=== PATIENT | female | born 1955 ===

== ENCOUNTER 2017-12-03 22:52 | Inpatient (IN) | payer MEDICAID, MEDICARE ==
[2017-12-03 22:52] VITALS: BMI 27.9
[2017-12-03] MEDS ORDERED: Iohexol 240 (50 ml) PO STA (23:30)
[2017-12-03] MEDS ORDERED: Sodium Chloride 0.9% 1,000 ML IV STA (23:33)
[2017-12-03 23:57] LABS: BASO # 0.1 K/uL (0.0-0.2); BASO % 0.7 % (0.0-2.0); EOS % 0.3 % (0.0-4.0); HEMOGLOBIN 11.3 g/dL (12.0-16.0); LYMPH # 1.6 K/uL (1.0-4.3); LYMPH % 10.4 % (20.0-40.0); MEAN CELL VOLUME 80.8 fl (81.0-99.0); MEAN CORPUSCULAR HEMOGLOBIN 25.6 pg (27.0-31.0); MEAN CORPUSCULAR HGB CONC 31.7 g/dL (33.0-37.0); MEAN PLATELET VOLUME 8.5 fl (7.2-11.7); MONO # 1.1 K/uL (0.0-0.8); MONO % 7.6 % (0.0-10.0); NEUT # 12.2 K/uL (1.8-7.0); NRBC % 0.1 % (0.0-0.0); RBC 4.42 Mil/uL (3.80-5.20); RED CELL DISTRIBUTION WIDTH 15.6 % (11.5-14.5); WHITE BLOOD COUNT 15.1 K/uL (4.8-10.8)
[2017-12-04 00:07] LABS: INR 1.2 (0.9-1.2); PARTIAL THROMBOPLASTIN TIME 26.6 Seconds (25.6-37.1); PROTHROMBIN TIME 13.5 Seconds (9.8-13.1)
[2017-12-04 00:09] LABS: ALB/GLOB RATIO 1.1 (1.0-2.1); ALBUMIN 3.8 g/dL (3.5-5.0); ALT/SGPT 31 U/L (9-52); AST/SGOT 17 U/L (14-36); BLOOD UREA NITROGEN 17 mg/dl (7-17); CALCIUM 9.5 mg/dL (8.4-10.2); GFR AFRICAN-AMERICAN > 60; GFR NON-AFRICAN AMERICAN > 60; LIPASE 52 U/L (23-300); MAGNESIUM 1.7 MG/DL (1.6-2.3)
[2017-12-04 00:09] LABS: VENOUS BLOOD GAS BASE EXCESS 3.9 mmol/L (0.0-2.0); VENOUS BLOOD GAS PCO2 42 mmHg (40-60); VENOUS BLOOD GAS PO2 26 mm/Hg (30-55); VENOUS BLOOD PH 7.44 (7.32-7.43)
--- NOTE | 2017-12-04 00:44 | ED PDOC ---
HPI: Abdomen Time Seen by Provider: 12/03/17 23:13 Chief Complaint (Nursing): Abdominal Pain Chief Complaint (Provider): Abdominal Pain History Per: Patient History/Exam Limitations: no limitations Onset/Duration Of Symptoms: Other (3.5 weeks) Additional Complaint(s): 61 y/o female presents to the ED complaining of lower abdominal pain, that started about 3.5 weeks ago when she was in [facility] [place]. Patient reports that initially she had diarrhea which was bloody, as well has hematuria, frequency and abnormal vaginal bleeding. Patient states that bleeding resolved but abdominal pain continued. She also notes that she has decreased appetite, subjective fever, chills, body aches, malaise and fatigue. She reports seeing her PMD who prescribed her the regular medicines she takes. Denies dysuria or any further medical complaints. PMD: Soto Young MD Past Medical History Vital Signs: Last Vital Signs Temp 98.2 F 12/12/17 08:30 Pulse 72 12/12/17 08:30 Resp 20 12/12/17 08:30 BP 141/82 12/12/17 08:30 Pulse Ox 98 12/13/17 14:10 - Medical History PMH: Depression, Diabetes, Gastritis, Hypercholesterolemia, Osteoporosis Denies: Chronic Kidney Disease - Surgical History Surgical History: Endoscopy, Other surgeries: Umbilical Hernia - Family History Family History: States: Diabetes - Social History Current smoker - smoking cessation education provided: No Alcohol: None Drugs: Denies - Home Medications Home Medications: Ambulatory Orders Medication Instructions Recorded Alprazolam [Xanax] 1 tab PO DAILY 12/04/17 Cholecalciferol [Vitamin D 1000 IU] 50,000 iu PO DAILY 12/04/17 Dulaglutide [Trulicity] 1.5 mg SQ QWK 12/04/17 Omeprazole 1 tab PO DAILY 12/04/17 Rosuvastatin Calcium [Crestor] 20 mg PO HS 12/04/17 Sucralfate [Carafate Tab] 1 tab PO DAILY 12/04/17 Vortioxetine Hydrobromide 1 tab PO DAILY 12/04/17 [Trintellix] metFORMIN [glucOPHAGE] 2 tab PO BID 12/04/17 Cefpodoxime [Vantin] 200 mg PO BID #10 tab 12/12/17 Docusate [Colace] 100 mg PO BID cap 12/12/17 Ferrous Sulfate [Feosol] 325 mg PO BID tab 12/12/17 Simethicone [Mylicon Chew Tab] 80 mg PO TID #30 chew 12/12/17 - Allergies Allergies/Adverse Reactions: Allergies Allergy/AdvReac Type Severity Reaction Status Date / Time Penicillins Allergy RASH Verified 12/03/17 23:03 Review of Systems ROS Statement: Except As Marked, All Systems Reviewed And Found Negative (As per HPI, otherwise negative) Constitutional: Positive for: Fever, Chills, Malaise (and fatigue), Other (Body aches) Gastrointestinal: Positive for: Abdominal Pain (Lower abdominal pain), Diarrhea (Bloody), Other (Decreased appetite) Genitourinary Female: Positive for: Frequency, Hematuria, Vaginal Bleeding. Negative for: Dysuria Physical Exam - Reviewed Nursing Documentation Reviewed: Yes Vital Signs Reviewed: Yes - Physical Exam Appears: Positive for: Uncomfortable, In Acute Distress Head Exam: Positive for: ATRAUMATIC, NORMOCEPHALIC Skin: Positive for: Warm, Dry Eye Exam: Positive for: EOMI, PERRL ENT: Positive for: Pharynx Is (clear), Other (mucus membranes moist) Neck: Positive for: Painless ROM, Supple Cardiovascular/Chest: Positive for: Regular Rate, Rhythm, Chest Non Tender. Negative for: Murmur Respiratory: Positive for: Normal Breath Sounds. Negative for: Respiratory Distress Gastrointestinal/Abdominal: Positive for: Bowel Sounds, Soft, Tenderness (LLQ and suprapubic). Negative for: Mass, Distended, Guarding, Rebound Back: Positive for: Normal Inspection. Negative for: L CVA Tenderness, R CVA Tenderness Extremity: Positive for: Normal ROM. Negative for: Deformity Lymphatic: Negative for: Adenopathy Neurologic/Psych: Positive for: Alert. Negative for: Motor/Sensory Deficits - Laboratory Results Result Diagrams: 12/11/17 09:05 12/12/17 05:40 - ECG O2 Sat by Pulse Oximetry: 98 (RA) Pulse Ox Interpretation: Normal Medical Decision Making Medical Decision Making: Time: 23:31 Initial Impression: Abdominal Pain Differential diagnosis: cholecystitis, diverticulitis, cystitis, UTI, dehydration Plan: Type and screen CT abdomen/Pelvis Urine dipstick Acetaminophen 975mg PO Iohexol 50ml PO Sodium chloride 1L IV Blood culture Urine culture IV insertion Glucose, Blood, POC Urinalysis Reevaluation Time: 02:16 Abdomen/Pelvis CT FINDINGS: Limitations: Motion artifact - mild. Lower thorax: Mild cardiomegaly. Minimal atelectasis. 0.3 cm RIGHT middle lobe nodule. Small hiatal hernia. ABDOMEN: Liver: Unremarkable. No mass. Gallbladder and bile ducts: No calcified stones. No ductal dilation. Pancreas: No ductal dilation. No mass. Spleen: No splenomegaly. Adrenals: No mass. Kidneys and ureters: Multiple probable LEFT renal cysts. Multiple too small to characterize lesions within LEFT kidney. Mild pelvocaliectasis of both kidneys. Stomach and bowel: Few scattered diverticula within colon. Mild mural thickening short segment of proximal sigmoid colon. Minimal stranding within adjacent fat. No obstruction. Appendix: Normal caliber. No inflammation. PELVIS: Bladder: Unremarkable. Reproductive: 5.6 x 4.4 x 4.7 cm multiloculated lesion within left adnexal region contiguous with thickened proximal sigmoid colon. ABDOMEN and PELVIS: Intraperitoneal space: No significant fluid collection. No free air. Bones/joints: Early degenerative changes of spine. No acute fracture. Soft tissues: Probable multiple noncalcified injection granulomas within gluteal soft tissues. Postsurgical changes of anterior abdominal wall. Vasculature: Minimal atherosclerotic disease. No aneurysm. Lymph nodes: No pathologically enlarged lymph nodes. IMPRESSION: 1. Multiloculated lesion within left adnexal region contiguous with mildly thickened proximal sigmoid colon. DDX: Diverticulitis with diverticular abscess, tuboovarian abscess with secondary colitis, ovarian neoplasm with local invasion. Clinical correlation and follow up are recommended. 2. Pulmonary nodules. For low-risk patients, no follow-up is necessary. For high-risk patients (smoking history or other known risk factors) an optional CT at 12 months could be performed. 3. Incidental/non-acute findings are described above. DW pt findings and need for US for further evaluation. Also pt with findings c/ w sepsis (but not severe/shock) requiring antibiotics. Will need hospitalization. Pt in agreement. EXAM: US Pelvis, Transvaginal CLINICAL HISTORY: 61 years old, female; Pain; Pelvic pain; Additional info: Left adnexal abnormality R/O toa TECHNIQUE: Real-time transvaginal pelvic ultrasound (complete) with image documentation. Transvaginal imaging was used for better evaluation of the endometrium and adnexa. COMPARISON: CT - ABD PELVIS PO IV CONTRAST 2017-12-04 01:14 FINDINGS: Uterus/cervix: Uterus measures 5.4 x 2.7 x 4.2 cm in size. No myometrial mass. Nabothian cysts. Endometrium: 0.4 cm in thickness. Right ovary: Not visualized. Left ovary: 5.6 x 4.8 x 5.8 cm in size. Multiple hypoechoic lesions with internal echoes, largest up to 2.7 cm. Normal flow. Free fluid: Small free fluid within pelvis. Bladder: Empty bladder which cannot be evaluated with this probe. IMPRESSION: 1. Enlarged, complex appearing LEFT ovary, indeterminate. Neoplasm or infection not excluded. Recommend MRI. 2. Incidental/non-acute findings are described above. Thank you for allowing us to participate in the care of your patient. Dictated and Authenticated by: Norris aSmaniego MD 12/04/2017 4:12 AM Eastern Time ([place] & [place]) DW pt findings. DW Dr Young PMD. Will need surgical and shaker flatwork consults inpatient. Scribe Attestation: Documented by Cate Hrenandez acting as a scribe for Liliane Yanes MD. Scribe Attestation: All medical record entries made by the Scribe were at my direction and personally dictated by me. I have reviewed the chart and agree that the record accurately reflects my personal performance of the history, physical exam, medical decision making, and the department course for this patient. I have also personally directed, reviewed, and agree with the discharge instructions and disposition. Disposition - Clinical Impression Clinical Impression: Adnexal mass, Sepsis Counseled Patient/Family Regarding: Studies Performed, Diagnosis - Disposition Disposition Time: 02:30 Condition: FAIR - Pt Status Changed To: Hospital Disposition Of: Inpatient - Admit Certification Admit to Inpatient:: After my assessment, the patient will require hospitalization for at least two midnights. This is because of the severity of symptoms shown, intensity of services needed, and/or the medical risk in this patient being treated as an outpatient. - POA Present On Arrival: None
[2017-12-04] MEDS ORDERED: Sodium Chloride 0.9% 50 ML IV ONE (01:10)
[2017-12-04 01:11] LABS: SQUAMOUS EPITHIAL 1 /hpf (0-5); URINE BACTERIA RARE (<OCC); URINE BILIRUBIN NEGATIVE (NEGATIVE); URINE BLOOD MODERATE (NEGATIVE); URINE CLARITY SLIGHTY-CLOUDY (Clear); URINE COLOR YELLOW (YELLOW); URINE GLUCOSE (UA) NEG (Normal); URINE LEUKOCYTE ESTERASE SMALL Leu/uL (Negative); URINE NITRATE NEGATIVE (NEGATIVE); URINE PROTEIN NEGATIVE (NEGATIVE); URINE UROBILINOGEN 0.2-1.0 mg/dL (0.2-1.0)
[2017-12-04] MEDS ORDERED: Iohexol 300 100 ML IJ ONE (01:11)
--- NOTE | 2017-12-04 02:16 | CT ---
EXAM: CT Abdomen and Pelvis With Intravenous Contrast CLINICAL HISTORY: 61 years old, female; Pain; Abdominal pain; Periumbilical; Prior surgery; Surgery date: 6+ months; Surgery type: Abdominal plasty. Hernia repair umbilicus TECHNIQUE: Axial computed tomography images of the abdomen and pelvis with intravenous contrast. All CT scans at this facility use one or more dose reduction techniques, viz.: automated exposure control; ma/kV adjustment per patient size (including targeted exams where dose is matched to indication; i.e. head); or iterative reconstruction technique. Coronal and sagittal reformatted images were created and reviewed. CONTRAST: 90 mL of [id number] administered intravenously. COMPARISON: US - ABDOMEN LIMITED 2015-09-23 00:14 FINDINGS: Limitations: Motion artifact - mild. Lower thorax: Mild cardiomegaly. Minimal atelectasis. 0.3 cm RIGHT middle lobe nodule. Small hiatal hernia. ABDOMEN: Liver: Unremarkable. No mass. Gallbladder and bile ducts: No calcified stones. No ductal dilation. Pancreas: No ductal dilation. No mass. Spleen: No splenomegaly. Adrenals: No mass. Kidneys and ureters: Multiple probable LEFT renal cysts. Multiple too small to characterize lesions within LEFT kidney. Mild pelvocaliectasis of both kidneys. Stomach and bowel: Few scattered diverticula within colon. Mild mural thickening short segment of proximal sigmoid colon. Minimal stranding within adjacent fat. No obstruction. Appendix: Normal caliber. No inflammation. PELVIS: Bladder: Unremarkable. Reproductive: 5.6 x 4.4 x 4.7 cm multiloculated lesion within left adnexal region contiguous with thickened proximal sigmoid colon. ABDOMEN and PELVIS: Intraperitoneal space: No significant fluid collection. No free air. Bones/joints: Early degenerative changes of spine. No acute fracture. Soft tissues: Probable multiple noncalcified injection granulomas within gluteal soft tissues. Postsurgical changes of anterior abdominal wall. Vasculature: Minimal atherosclerotic disease. No aneurysm. Lymph nodes: No pathologically enlarged lymph nodes. IMPRESSION: 1. Multiloculated lesion within left adnexal region contiguous with mildly thickened proximal sigmoid colon. DDX: Diverticulitis with diverticular abscess, tuboovarian abscess with secondary colitis, ovarian neoplasm with local invasion. Clinical correlation and follow up are recommended. 2. Pulmonary nodules. For low-risk patients, no follow-up is necessary. For high-risk patients (smoking history or other known risk factors) an optional CT at 12 months could be performed. 3. Incidental/non-acute findings are described above.
[2017-12-04] MEDS ORDERED: Ciprofloxacin 400mg/200ml D5W 400 MG/200 ML BAG IV STA (02:59)
[2017-12-04] MEDS ORDERED: metroNIDAZOLE 500mg/100ml NS 100 ML IV STA (03:00)
[2017-12-04] MEDS ORDERED: metroNIDAZOLE 500mg/100ml NS 100 ML IVPB ONE (03:26)
[2017-12-04] MEDS ORDERED: Ciprofloxacin 400mg/200ml D5W 400 MG/200 ML BAG IVPB ONE (03:26)
[2017-12-04] MEDS ORDERED: HYDROmorphone 0.5 mg/0.5 ml ISec IVP STA (04:11)
[2017-12-04] MEDS ORDERED: HYDROmorphone 0.5 mg/0.5 ml ISec ONE (04:12)
--- NOTE | 2017-12-04 04:13 | US ---
EXAM: US Pelvis, Transvaginal CLINICAL HISTORY: 61 years old, female; Pain; Pelvic pain; Additional info: Left adnexal abnormality R/O toa TECHNIQUE: Real-time transvaginal pelvic ultrasound (complete) with image documentation. Transvaginal imaging was used for better evaluation of the endometrium and adnexa. COMPARISON: CT - ABD PELVIS PO IV CONTRAST 2017-12-04 01:14 FINDINGS: Uterus/cervix: Uterus measures 5.4 x 2.7 x 4.2 cm in size. No myometrial mass. Nabothian cysts. Endometrium: 0.4 cm in thickness. Right ovary: Not visualized. Left ovary: 5.6 x 4.8 x 5.8 cm in size. Multiple hypoechoic lesions with internal echoes, largest up to 2.7 cm. Normal flow. Free fluid: Small free fluid within pelvis. Bladder: Empty bladder which cannot be evaluated with this probe. IMPRESSION: 1. Enlarged, complex appearing LEFT ovary, indeterminate. Neoplasm or infection not excluded. Recommend MRI. 2. Incidental/non-acute findings are described above.
--- NOTE | 2017-12-04 07:39 | CP.PCM.CON ---
<Annabelle Auguste - Last Filed: 12/04/17 10:29> History of Present Illness - History of Present Illness History of Present Illness: General surgery consult for Dr. Naseem Auguste, PGY-1 Pt S & E at bedside. 61F w/PMH sig for Gastritis, HLD, DM, hx hiatal hernia consulted for possible diverticulitis and abdominal pain. Pt reports ab pain x 4 mos, worsened over past 2-3 weeks, diffuse, constant, non radiating, severe. Admits to constant diarrhea, nausea, pain with sexual intercourse (every time), fevers, abnormal vaginal bleeding, bleeding per rectum, poor appetite, dizziness, recent Abx pain. Denies emesis. Pt saw outpt obgyn approximately 1 mo ago- given medroxyprogesterone and abx. CT ab w/Multiloculated lesion within left adnexal region contiguous with mildly thickened proximal sigmoid colon. DDX: Diverticulitis with diverticular abscess , tuboovarian abscess with secondary colitis, ovarian neoplasm with local invasion. Clinical correlation and follow up are recommended. Leukocytosis 15.1. PMH: Gastritis, HLD, DM, hx hiatal hernia PSH: Hiatal hernia repair, All: PCN (Dizzy) SH: Pain w/sexual intercourse- unprotected, denies ETOH, tobacco, illicit drug use Outpt professor of communication: Lara (sp?) Review of Systems - Review of Systems All systems: reviewed and no additional remarkable complaints except - Constitutional Constitutional: Fever. absent: Increased Appetite - EENT Ears: Dizziness - Cardiovascular Cardiovascular: absent: Chest Pain - Gastrointestinal Gastrointestinal: Abdominal Pain, Change in Stool Character, Diarrhea, Nausea. absent: Constipation, Vomiting - Reproductive: Female Reproductive:Female: Abnormal Vaginal Bleeding, Dyspareunia - Integumentary Integumentary: absent: Rash - Neurological Neurological: Dizziness - Psychiatric Psychiatric: Change in Appetite (decreased) Past Patient History - Past Medical History & Family History Past Medical History?: Yes - Past Social History Alcohol: None Drugs: Denies - CARDIAC Hx Hypercholesterolemia: Yes - PULMONARY Hx Respiratory Disorders: No - NEUROLOGICAL Hx Neurological Disorder: No - HEENT Hx HEENT Problems: No - RENAL Hx Chronic Kidney Disease: No - ENDOCRINE/METABOLIC Hx Endocrine Disorders: Yes Hx Diabetes Mellitus Type 2: Yes - HEMATOLOGICAL/ONCOLOGICAL Hx Blood Disorders: No - INTEGUMENTARY Hx Dermatological Problems: No - MUSCULOSKELETAL/RHEUMATOLOGICAL Hx Osteoporosis: Yes - GASTROINTESTINAL Hx Gastritis: Yes - GENITOURINARY/GYNECOLOGICAL Hx Genitourinary Disorders: No - PSYCHIATRIC Hx Depression: Yes - SURGICAL HISTORY Hx Surgeries: Yes (HIATAL HERNIA SX) - ANESTHESIA Hx Anesthesia: Yes Hx Anesthesia Reactions: No Hx Malignant Hyperthermia: No Meds Allergies/Adverse Reactions: Allergies Allergy/AdvReac Type Severity Reaction Status Date / Time Penicillins Allergy RASH Verified 12/03/17 23:03 - Medications Medications: Current Medications Hydromorphone HCl (Dilaudid) 1 mg IVP Q4 PRN PRN Reason: Pain, moderate (4-7) Dextrose/Lactated Ringer's (Dextrose 5%/Lactated Ringer's) 1,000 mls @ 100 mls/ hr IV .Q10H JETHRO Stop: 12/05/17 06:28 Ondansetron HCl (Zofran Inj) 4 mg IVP Q4 PRN PRN Reason: Nausea/Vomiting Pantoprazole Sodium (Protonix Inj) 40 mg IVP DAILY JETHRO Physical Exam - Constitutional Appears: Non-toxic, No Acute Distress - Head Exam Head Exam: ATRAUMATIC, NORMAL INSPECTION, NORMOCEPHALIC - Eye Exam Eye Exam: EOMI, Normal appearance - ENT Exam ENT Exam: Mucous Membranes Moist, Normal Exam - Neck Exam Neck exam: Positive for: Full Rom, Normal Inspection - Respiratory Exam Respiratory Exam: NORMAL BREATHING PATTERN - Cardiovascular Exam Cardiovascular Exam: REGULAR RHYTHM, +S1, +S2 - GI/Abdominal Exam GI & Abdominal Exam: Soft, Tenderness (diffuse). absent: Distended, Firm, Guarding, Hernia, Rebound, Rigid - Extremities Exam Extremities exam: Positive for: normal inspection - Neurological Exam Neurological exam: Alert, CN II-XII Intact, Oriented x3 - Psychiatric Exam Psychiatric exam: Normal Affect, Normal Mood - Skin Skin Exam: Dry, Intact, Normal Color, Warm Results - Vital Signs Recent Vital Signs: Last Vital Signs Temp 98.6 F 12/04/17 05:02 Pulse 80 12/04/17 05:02 Resp 19 12/04/17 05:02 BP 122/81 12/04/17 05:02 Pulse Ox 98 12/04/17 07:21 - Labs Result Diagrams: 12/03/17 23:54 12/03/17 23:54 Labs: Laboratory Results - last 24 hr 12/03/17 12/03/17 12/03/17 00:00 23:31 23:54 WBC 15.1 H D RBC 4.42 Hgb 11.3 L Hct 35.7 MCV 80.8 L D MCH 25.6 L MCHC 31.7 L RDW 15.6 H Plt Count 255 MPV 8.5 Neut % (Auto) 81.0 H Lymph % (Auto) 10.4 L [place] % (Auto) 7.6 Eos % (Auto) 0.3 Baso % (Auto) 0.7 Neut # 12.2 H Lymph # 1.6 [place] # 1.1 H Eos # 0.0 Baso # 0.1 PT INR APTT pO2 26 L VBG pH 7.44 H VBG pCO2 42 VBG HCO3 26.7 VBG Total CO2 29.8 H VBG O2 Sat (Calc) 52.0 VBG Base Excess 3.9 H VBG Potassium 3.6 Sodium 138.0 Chloride 100.0 Glucose 148 H Lactate 1.3 FiO2 21.0 Potassium Carbon Dioxide Anion Gap BUN Creatinine Est GFR ( Amer) Est GFR (Non-Af Amer) Random Glucose Calcium Phosphorus Magnesium Total Bilirubin AST ALT Alkaline Phosphatase Total Protein Albumin Globulin Albumin/Globulin Ratio Lipase Venous Blood Potassium 3.6 Urine Color Urine Clarity Urine pH Ur Specific [place] Urine Protein Urine Glucose (UA) Urine Ketones Urine Blood Urine Nitrate Urine Bilirubin Urine Urobilinogen Ur Leukocyte Esterase Urine RBC (Auto) Urine Microscopic WBC Ur Squamous Epith Cells Urine Bacteria Blood Type O POSITIVE Antibody Screen Negative BBK History Checked No verified bt 12/03/17 12/03/17 12/04/17 23:54 23:54 01:01 WBC RBC Hgb Hct MCV MCH MCHC RDW Plt Count MPV Neut % (Auto) Lymph % (Auto) [place] % (Auto) Eos % (Auto) Baso % (Auto) Neut # Lymph # [place] # Eos # Baso # PT 13.5 H INR 1.2 APTT 26.6 pO2 VBG pH VBG pCO2 VBG HCO3 VBG Total CO2 VBG O2 Sat (Calc) VBG Base Excess VBG Potassium Sodium 137 Chloride 99 Glucose Lactate FiO2 Potassium 3.5 L Carbon Dioxide 27 Anion Gap 15 BUN 17 Creatinine 0.7 Est GFR ( Amer) > 60 Est GFR (Non-Af Amer) > 60 Random Glucose 154 H Calcium 9.5 Phosphorus 4.3 Magnesium 1.7 Total Bilirubin 0.5 AST 17 ALT 31 Alkaline Phosphatase 116 Total Protein 7.3 Albumin 3.8 Globulin 3.5 Albumin/Globulin Ratio 1.1 Lipase 52 Venous Blood Potassium Urine Color Yellow Urine Clarity Slighty-cloudy Urine pH 6.0 Ur Specific [place] 1.016 Urine Protein Negative Urine Glucose (UA) Neg Urine Ketones Negative Urine Blood Moderate Urine Nitrate Negative Urine Bilirubin Negative Urine Urobilinogen 0.2-1.0 Ur Leukocyte Esterase Small Urine RBC (Auto) 5 H Urine Microscopic WBC 23 H Ur Squamous Epith Cells 1 Urine Bacteria Rare Blood Type Antibody Screen BBK History Checked Assessment & Plan - Assessment and Plan (Free Text) Assessment: 61F w/PMH sig for Gastritis, HLD, DM, hx hiatal hernia consulted for possible diverticulitis, possible abscess, differential includes diverticulitis w/ abscess vs. tubo-ovarian abscess Plan: Cont IV Abx Pain mgmt Recommend professor of communication consult, pelvic exam Recommend outpatient colonoscopy Further recs as per attending Will DW attending Kalyani, PGY-1 - Date & Time Date: 12/04/17 Time: 07:00 <Gonzalo Marie - Last Filed: 12/04/17 10:44> History of Present Illness - History of Present Illness History of Present Illness: Patient was seen and examined at the bedside. Agree with resident's note above. Meds - Medications Medications: Current Medications Dextrose (Dextrose 50% Inj) 0 ml IV STAT PRN; Protocol PRN Reason: Hypoglycemia Protocol Dextrose (Glutose 15) 0 gm PO ONCE PRN; Protocol PRN Reason: Hypoglycemia Protocol Glucagon (Glucagen Diagnostic Kit) 0 mg IM STAT PRN; Protocol PRN Reason: Hypoglycemia Protocol Hydromorphone HCl (Dilaudid) 1 mg IVP Q4 PRN PRN Reason: Pain, moderate (4-7) Last Admin: 12/04/17 10:27 Dose: 1 mg Dextrose/Lactated Ringer's (Dextrose 5%/Lactated Ringer's) 1,000 mls @ 100 mls/ hr IV .Q10H JETHRO Stop: 12/05/17 06:28 Last Admin: 12/04/17 08:39 Dose: 100 mls/hr Ciprofloxacin (Cipro 400mg/200ml Dsw) 400 mg in 200 mls @ 200 mls/hr IVPB Q12 JETHRO PRN Reason: Protocol Metronidazole (Flagyl 500mg/100ml Ns) 100 mls @ 100 mls/hr IVPB Q8 JETHRO PRN Reason: Protocol Last Admin: 12/04/17 10:33 Dose: Not Given Insulin Human Regular (Humulin R) 0 units SC ACHS JETHRO PRN Reason: Protocol Ondansetron HCl (Zofran Inj) 4 mg IVP Q4 PRN PRN Reason: Nausea/Vomiting Pantoprazole Sodium (Protonix Inj) 40 mg IVP DAILY [facility] Last Admin: 12/04/17 08:40 Dose: 40 mg Results - Vital Signs Recent Vital Signs: Last Vital Signs Temp 98.4 F 12/04/17 09:00 Pulse 80 12/04/17 08:47 Resp 20 12/04/17 08:47 BP 103/63 12/04/17 08:47 Pulse Ox 99 12/04/17 08:47 - Labs Result Diagrams: 12/03/17 23:54 12/03/17 23:54 Labs: Laboratory Results - last 24 hr 12/03/17 12/03/17 12/03/17 00:00 23:31 23:54 WBC 15.1 H D RBC 4.42 Hgb 11.3 L Hct 35.7 MCV 80.8 L D MCH 25.6 L MCHC 31.7 L RDW 15.6 H Plt Count 255 MPV 8.5 Neut % (Auto) 81.0 H Lymph % (Auto) 10.4 L [place] % (Auto) 7.6 Eos % (Auto) 0.3 Baso % (Auto) 0.7 Neut # 12.2 H Lymph # 1.6 [place] # 1.1 H Eos # 0.0 Baso # 0.1 PT INR APTT pO2 26 L VBG pH 7.44 H VBG pCO2 42 VBG HCO3 26.7 VBG Total CO2 29.8 H VBG O2 Sat (Calc) 52.0 VBG Base Excess 3.9 H VBG Potassium 3.6 Sodium 138.0 Chloride 100.0 Glucose 148 H Lactate 1.3 FiO2 21.0 Potassium Carbon Dioxide Anion Gap BUN Creatinine Est GFR ( Amer) Est GFR (Non-Af Amer) Random Glucose Calcium Phosphorus Magnesium Total Bilirubin AST ALT Alkaline Phosphatase Total Protein Albumin Globulin Albumin/Globulin Ratio Lipase Venous Blood Potassium 3.6 Urine Color Urine Clarity Urine pH Ur Specific [place] Urine Protein Urine Glucose (UA) Urine Ketones Urine Blood Urine Nitrate Urine Bilirubin Urine Urobilinogen Ur Leukocyte Esterase Urine RBC (Auto) Urine Microscopic WBC Ur Squamous Epith Cells Urine Bacteria Blood Type O POSITIVE Antibody Screen Negative BBK History Checked No verified bt 12/03/17 12/03/17 12/04/17 23:54 23:54 01:01 WBC RBC Hgb Hct MCV MCH MCHC RDW Plt Count MPV Neut % (Auto) Lymph % (Auto) [place] % (Auto) Eos % (Auto) Baso % (Auto) Neut # Lymph # [place] # Eos # Baso # PT 13.5 H INR 1.2 APTT 26.6 pO2 VBG pH VBG pCO2 VBG HCO3 VBG Total CO2 VBG O2 Sat (Calc) VBG Base Excess VBG Potassium Sodium 137 Chloride 99 Glucose Lactate FiO2 Potassium 3.5 L Carbon Dioxide 27 Anion Gap 15 BUN 17 Creatinine 0.7 Est GFR ( Amer) > 60 Est GFR (Non-Af Amer) > 60 Random Glucose 154 H Calcium 9.5 Phosphorus 4.3 Magnesium 1.7 Total Bilirubin 0.5 AST 17 ALT 31 Alkaline Phosphatase 116 Total Protein 7.3 Albumin 3.8 Globulin 3.5 Albumin/Globulin Ratio 1.1 Lipase 52 Venous Blood Potassium Urine Color Yellow Urine Clarity Slighty-cloudy Urine pH 6.0 Ur Specific [place] 1.016 Urine Protein Negative Urine Glucose (UA) Neg Urine Ketones Negative Urine Blood Moderate Urine Nitrate Negative Urine Bilirubin Negative Urine Urobilinogen 0.2-1.0 Ur Leukocyte Esterase Small Urine RBC (Auto) 5 H Urine Microscopic WBC 23 H Ur Squamous Epith Cells 1 Urine Bacteria Rare Blood Type Antibody Screen BBK History Checked - Imaging and Cardiology CT scan - abdomen Status: Image reviewed by me, Report reviewed by me Assessment & Plan - Assessment and Plan (Free Text) Plan: - Keep NPO - IV fluids - Continue antibiotics - Pain control - DRAINAGE ENGINEER evaluation - No general surgery intervention at present time - repeat labs in am - Will follow
[2017-12-04] MEDS: Dextrose 5%/Lactated Ringer's 1,000 ML IV SCH ×3 (08:39→21:08)
[2017-12-04] MEDS ORDERED: metroNIDAZOLE 500mg/100ml NS 100 ML IVPB SCH (09:00)
--- NOTE | 2017-12-04 10:21 | CP.PCM.HP ---
History of Present Illness - History of Present Illness History of Present Illness: This is a 61 y/o female admitted form last night due to persistent lower abdominal and pelvic pain which started since she was on vacation in [facility] 3 to 4 weeks ago. 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 Prior to her vacation , 3 to 4 wees ago, she had noted postmenopausal bleed and rectal bleed at around the same time. Work up was done in [facility] but currently results are not available. She has been complaining of gastritis. in the psat. She had normal colonoscopy 6 years ago. She had lost about 7 to 8 pounds since a month ago. Medical Hx Gastritis , DM 2, depression, osteoporosis No allergies. Initial exam showed left adnexal mass contiguous from ovary to left sigmoid left lower pulmonary nodule Present on Admission - Present on Admission Any Indicators Present on Admission: No History of DVT/PE: No History of Uncontrolled Diabetes: No Urinary Catheter: No Decubitus Ulcer Present: No Review of Systems - Gastrointestinal Gastrointestinal: Abdominal Pain, Belching, Bloating, Diarrhea, Dyspepsia Past Patient History - Past Medical History & Family History Past Medical History?: Yes - Past Social History Alcohol: None Drugs: Denies - CARDIAC Hx Hypercholesterolemia: Yes - PULMONARY Hx Respiratory Disorders: No - NEUROLOGICAL Hx Neurological Disorder: No - HEENT Hx HEENT Problems: No - RENAL Hx Chronic Kidney Disease: No - ENDOCRINE/METABOLIC Hx Endocrine Disorders: Yes Hx Diabetes Mellitus Type 2: Yes - HEMATOLOGICAL/ONCOLOGICAL Hx Blood Disorders: No - INTEGUMENTARY Hx Dermatological Problems: No - MUSCULOSKELETAL/RHEUMATOLOGICAL Hx Osteoporosis: Yes - GASTROINTESTINAL Hx Gastritis: Yes - GENITOURINARY/GYNECOLOGICAL Hx Genitourinary Disorders: No - PSYCHIATRIC Hx Depression: Yes - SURGICAL HISTORY Hx Surgeries: Yes (HIATAL HERNIA SX) - ANESTHESIA Hx Anesthesia: Yes Hx Anesthesia Reactions: No Hx Malignant Hyperthermia: No Meds Allergies/Adverse Reactions: Allergies Allergy/AdvReac Type Severity Reaction Status Date / Time Penicillins Allergy RASH Verified 12/03/17 23:03 Physical Exam - Head Exam Head Exam: NORMAL INSPECTION - Eye Exam Eye Exam: Normal appearance - ENT Exam ENT Exam: Mucous Membranes Moist - Respiratory Exam Respiratory Exam: Clear to Auscultation Bilateral - GI/Abdominal Exam GI & Abdominal Exam: Normal Bowel Sounds - Neurological Exam Neurological exam: CN II-XII Intact, Oriented x3 - Psychiatric Exam Psychiatric exam: Normal Mood Results - Vital Signs Recent Vital Signs: Last Vital Signs Temp 98.4 F 12/04/17 09:00 Pulse 80 12/04/17 08:47 Resp 20 12/04/17 08:47 BP 103/63 12/04/17 08:47 Pulse Ox 99 12/04/17 08:47 - Labs Result Diagrams: 12/03/17 23:54 12/03/17 23:54 Labs: Laboratory Results - last 24 hr 12/03/17 12/03/17 12/03/17 00:00 23:31 23:54 WBC 15.1 H D RBC 4.42 Hgb 11.3 L Hct 35.7 MCV 80.8 L D MCH 25.6 L MCHC 31.7 L RDW 15.6 H Plt Count 255 MPV 8.5 Neut % (Auto) 81.0 H Lymph % (Auto) 10.4 L [place] % (Auto) 7.6 Eos % (Auto) 0.3 Baso % (Auto) 0.7 Neut # 12.2 H Lymph # 1.6 [place] # 1.1 H Eos # 0.0 Baso # 0.1 PT INR APTT pO2 26 L VBG pH 7.44 H VBG pCO2 42 VBG HCO3 26.7 VBG Total CO2 29.8 H VBG O2 Sat (Calc) 52.0 VBG Base Excess 3.9 H VBG Potassium 3.6 Sodium 138.0 Chloride 100.0 Glucose 148 H Lactate 1.3 FiO2 21.0 Potassium Carbon Dioxide Anion Gap BUN Creatinine Est GFR ( Amer) Est GFR (Non-Af Amer) Random Glucose Calcium Phosphorus Magnesium Total Bilirubin AST ALT Alkaline Phosphatase Total Protein Albumin Globulin Albumin/Globulin Ratio Lipase Venous Blood Potassium 3.6 Urine Color Urine Clarity Urine pH Ur Specific [place] Urine Protein Urine Glucose (UA) Urine Ketones Urine Blood Urine Nitrate Urine Bilirubin Urine Urobilinogen Ur Leukocyte Esterase Urine RBC (Auto) Urine Microscopic WBC Ur Squamous Epith Cells Urine Bacteria Blood Type O POSITIVE Antibody Screen Negative BBK History Checked No verified bt 12/03/17 12/03/17 12/04/17 23:54 23:54 01:01 WBC RBC Hgb Hct MCV MCH MCHC RDW Plt Count MPV Neut % (Auto) Lymph % (Auto) [place] % (Auto) Eos % (Auto) Baso % (Auto) Neut # Lymph # [place] # Eos # Baso # PT 13.5 H INR 1.2 APTT 26.6 pO2 VBG pH VBG pCO2 VBG HCO3 VBG Total CO2 VBG O2 Sat (Calc) VBG Base Excess VBG Potassium Sodium 137 Chloride 99 Glucose Lactate FiO2 Potassium 3.5 L Carbon Dioxide 27 Anion Gap 15 BUN 17 Creatinine 0.7 Est GFR ( Amer) > 60 Est GFR (Non-Af Amer) > 60 Random Glucose 154 H Calcium 9.5 Phosphorus 4.3 Magnesium 1.7 Total Bilirubin 0.5 AST 17 ALT 31 Alkaline Phosphatase 116 Total Protein 7.3 Albumin 3.8 Globulin 3.5 Albumin/Globulin Ratio 1.1 Lipase 52 Venous Blood Potassium Urine Color Yellow Urine Clarity Slighty-cloudy Urine pH 6.0 Ur Specific [place] 1.016 Urine Protein Negative Urine Glucose (UA) Neg Urine Ketones Negative Urine Blood Moderate Urine Nitrate Negative Urine Bilirubin Negative Urine Urobilinogen 0.2-1.0 Ur Leukocyte Esterase Small Urine RBC (Auto) 5 H Urine Microscopic WBC 23 H Ur Squamous Epith Cells 1 Urine Bacteria Rare Blood Type Antibody Screen BBK History Checked Assessment & Plan (1) Adnexal mass Status: Acute (2) Weight loss Status: Acute (3) Pelvic pain Status: Acute - Assessment and Plan (Free Text) Plan: will keep NPO hydrate protonix surgical eval GYTN eval will need interventional for aspiration start IV antibiotics monitor labs tumor markers Infectious disease eval.
[2017-12-04] MEDS: HYDROmorphone 0.5 mg/0.5 ml ISec IVP PRN ×2 (10:27→18:16)
[2017-12-04] MEDS ORDERED: Dextrose 50% SYRINGE Inj (50 ml) IV PRN (10:28)
[2017-12-04] MEDS ORDERED: Glucagon Recombinant 1 mg Inj IM PRN (10:28)
[2017-12-04] MEDS: Insulin Regular 100 units/ml SC SCH ×3 (11:05→21:09)
[2017-12-04 11:45] LABS: BASO % 0.1 % (0.0-2.0); EOS # 0.1 K/uL (0.0-0.7); EOS % 0.4 % (0.0-4.0); HEMOGLOBIN 10.3 g/dL (12.0-16.0); LYMPH # 1.6 K/uL (1.0-4.3); LYMPH % 12.1 % (20.0-40.0); MEAN CELL VOLUME 81.2 fl (81.0-99.0); MEAN CORPUSCULAR HEMOGLOBIN 25.5 pg (27.0-31.0); MEAN CORPUSCULAR HGB CONC 31.4 g/dL (33.0-37.0); MEAN PLATELET VOLUME 8.5 fl (7.2-11.7); MONO % 7.6 % (0.0-10.0); NEUT # 10.4 K/uL (1.8-7.0); NEUT % 79.8 % (50.0-75.0); RBC 4.03 Mil/uL (3.80-5.20); RED CELL DISTRIBUTION WIDTH 15.5 % (11.5-14.5)
[2017-12-04 12:00] LABS: ALB/GLOB RATIO 0.9 (1.0-2.1); ALBUMIN 3.2 g/dL (3.5-5.0); ALT/SGPT 33 U/L (9-52); AST/SGOT 21 U/L (14-36); BLOOD UREA NITROGEN 11 mg/dl (7-17); GFR AFRICAN-AMERICAN > 60; GFR NON-AFRICAN AMERICAN > 60
--- NOTE | 2017-12-04 12:54 | CP.PCM.CON ---
History of Present Illness - History of Present Illness History of Present Illness: 61F consulted for possible diverticulitis and abdominal pain. Pt reports ab pain x 4 mos, worsened over past 2-3 weeks, diffuse, constant, non radiating, severe. Pt saw outpt obgyn approximately 1 mo ago- given medroxyprogesterone and abx. Recent travel to [facility] [place] ab w/Multiloculated lesion within left adnexal region contiguous with mildly thickened proximal sigmoid colon. DDX: Diverticulitis with diverticular abscess, tuboovarian abscess with secondary colitis, ovarian neoplasm with local invasion. Clinical correlation and follow up are recommended. Leukocytosis 15.1. PMH: Gastritis, HLD, DM, hx hiatal hernia PSH: Hiatal hernia repair, All: PCN (Dizzy) SH: denies ETOH, tobacco, illicit drug use ROS Admits to constant diarrhea, nausea, pain with sexual intercourse (every time), fevers, abnormal vaginal bleeding, bleeding per rectum, poor appetite, dizziness, recent Abx pain. Denies emesis. Review of Systems - Constitutional Constitutional: As Per HPI - EENT Eyes: absent: As Per HPI, Blind Spots, Blurred Vision, Change in Vision, Decreased Night Vision, Diplopia, Discharge, Dry Eye, Exophthalmos, Floaters, Irritation, Itchy Eyes, Loss of Peripheral Vision, Pain, Photophobia, Requires Corrective Lenses, Sees Flashes, Spots in Vision, Tunnel Vision, Other Visual Disturbances, Loss of Vision, Other Ears: absent: As Per HPI, Decreased Hearing, Ear Discharge, Ear Pain, Tinnitus, Abnormal Hearing, Disequilibrium, Dizziness, Other Nose/Mouth/Throat: absent: As Per HPI, Epistaxis, Nasal Congestion, Nasal Discharge, Nasal Obstruction, Nasal Trauma, Nose Pain, Post Nasal Drip, Sinus Pain, Sinus Pressure, Bleeding Gums, Change in Voice, Dental Pain, Dry Mouth, Dysphagia, Halitosis, Hoarsness, Lip Swelling, Mouth Lesions, Mouth Pain, Odynophagia, Sore Throat, Throat Swelling, Tongue Swelling, Facial Pain, Neck Pain, Neck Mass, Other - Breasts Breasts: absent: As Per HPI, Change in Shape, Mass, Pain, Nipple Discharge, Nipple Inversion, Skin Changes, Swelling, Other - Cardiovascular Cardiovascular: absent: As Per HPI, Acrocyanosis, Chest Pain, Chest Pain at Rest , Chest Pain with Activity, Claudication, Diaphoresis, Dyspnea, Dyspnea on Exertion, Edema, Irregular Heart Rhythm, Pain Radiating to Arm/Neck/Jaw, Leg Edema, Leg Ulcers, Lightheadedness, Orthopnea, Palpitations, Paroxysmal Nocturnal Dyspnea, Pedal Edema, Radiating Pain, Rapid Heart Rate, Slow Heart Rate, Syncope, Other - Respiratory Respiratory: absent: As Per HPI, Cough, Dyspnea, Hemoptysis, Dyspnea on Exertion , Wheezing, Snoring, Stridor, Pain on Inspiration, Chest Congestion, Excessive Mucous Production, Change in Mucous Color, Pain with Coughing, Other - Gastrointestinal Gastrointestinal: As Per HPI - Genitourinary Genitourinary: As Per HPI - Reproductive: Female Reproductive:Female: As Per HPI - Menstruation Menstruation: As Per HPI - Musculoskeletal Musculoskeletal: absent: As Per HPI, Abnormal Gait, Arthralgias, Atrophy, Back Pain, Deformity, Joint Swelling, Limited Range of Motion, Loss of Height, Muscle Cramps, Muscle Weakness, Myalgias, Neck Pain, Numbness, Radiating Pain into Limb, Stiffness, Tingling, Other - Integumentary Integumentary: absent: As Per HPI, Acne, Alopecia, Bleeding Lesions, Change in Hair, Change in Nails, Change in Pigmentation, Changing Lesions, Dry Skin, Erythema, Furuncle, Hirsutism, Lesions, New Lesions, Non-Healing Lesions, Photosensitivity, Pruritus, Rash, Skin Pain, Skin Ulcer, Sores, Striae, Swelling , Unusual Bruising, Wounds, Jaundice, Other - Neurological Neurological: absent: As Per HPI, Abnormal Gait, Abnormal Hearing, Abnormal Movements, Abnormal Speech, Behavioral Changes, Burning Sensations, Confusion, Convulsions, Disequilibrium, Dizziness, Numbness, Focal Weakness, Frequent Falls , Headaches, Lack of Coordination, Loss of Vision, Memory Loss, Paresthesias, Radicular Pain, Restless Legs, Sensory Deficit, Syncope, Tingling, Tremor, Vertigo, Weakness, Other Visual Disturbances, Other - Psychiatric Psychiatric: absent: As Per HPI, Abnormal Sleep Pattern, Anhedonia, Anxiety, Auditory Hallucinations, Behavioral Changes, Change in Appetite, Change in Libido, Confusion, Depression, Difficulty Concentrating, Hallucinations, Homicidal Ideation, Hopelessness, Irritability, Memory Loss, Mood Swings, Panic Attacks, Paranoia, Suicidal Ideation, Visual Hallucinations, Tactile Hallucinations, Other - Endocrine Endocrine: absent: As Per HPI, Change in Body Appearance, Change in Libido, Cold Intolorance, Deepening of Voice, Excessive Sweating, Fatigue, Flushing, Heat Intolorance, Increase in Ring/Shoe/Hat Size, Palpitations, Polydipsia, Polyphagia, Polyuria, Other - Hematologic/Lymphatic Hematologic: absent: As Per HPI, Easy Bleeding, Easy Bruising, Lymphadenopathy, Other Past Patient History - Past Medical History & Family History Past Medical History?: Yes - Past Social History Alcohol: None Drugs: Denies - CARDIAC Hx Hypercholesterolemia: Yes - PULMONARY Hx Respiratory Disorders: No - NEUROLOGICAL Hx Neurological Disorder: No - HEENT Hx HEENT Problems: No - RENAL Hx Chronic Kidney Disease: No - ENDOCRINE/METABOLIC Hx Endocrine Disorders: Yes Hx Diabetes Mellitus Type 2: Yes - HEMATOLOGICAL/ONCOLOGICAL Hx Blood Disorders: No - INTEGUMENTARY Hx Dermatological Problems: No - MUSCULOSKELETAL/RHEUMATOLOGICAL Hx Osteoporosis: Yes - GASTROINTESTINAL Hx Gastritis: Yes - GENITOURINARY/GYNECOLOGICAL Hx Genitourinary Disorders: No - PSYCHIATRIC Hx Depression: Yes - SURGICAL HISTORY Hx Surgeries: Yes (HIATAL HERNIA SX) - ANESTHESIA Hx Anesthesia: Yes Hx Anesthesia Reactions: No Hx Malignant Hyperthermia: No Meds Allergies/Adverse Reactions: Allergies Allergy/AdvReac Type Severity Reaction Status Date / Time Penicillins Allergy RASH Verified 12/03/17 23:03 - Medications Medications: Current Medications Dextrose (Dextrose 50% Inj) 0 ml IV STAT PRN; Protocol PRN Reason: Hypoglycemia Protocol Dextrose (Glutose 15) 0 gm PO ONCE PRN; Protocol PRN Reason: Hypoglycemia Protocol Glucagon (Glucagen Diagnostic Kit) 0 mg IM STAT PRN; Protocol PRN Reason: Hypoglycemia Protocol Hydromorphone HCl (Dilaudid) 1 mg IVP Q4 PRN PRN Reason: Pain, moderate (4-7) Last Admin: 12/04/17 10:27 Dose: 1 mg Dextrose/Lactated Ringer's (Dextrose 5%/Lactated Ringer's) 1,000 mls @ 100 mls/ hr IV .Q10H JETHRO Stop: 12/05/17 06:28 Last Admin: 12/04/17 08:39 Dose: 100 mls/hr Ciprofloxacin (Cipro 400mg/200ml Dsw) 400 mg in 200 mls @ 200 mls/hr IVPB Q12 [facility] PRN Reason: Protocol Metronidazole (Flagyl 500mg/100ml Ns) 100 mls @ 100 mls/hr IVPB Q8@0600,1400, 2200 [facility] PRN Reason: Protocol Insulin Human Regular (Humulin R) 0 units SC ACHS [facility] PRN Reason: Protocol Last Admin: 12/04/17 11:05 Dose: Not Given Ondansetron HCl (Zofran Inj) 4 mg IVP Q4 PRN PRN Reason: Nausea/Vomiting Pantoprazole Sodium (Protonix Inj) 40 mg IVP DAILY [facility] Last Admin: 12/04/17 08:40 Dose: 40 mg Physical Exam - Constitutional Appears: Non-toxic, Chronically Ill - Head Exam Head Exam: ATRAUMATIC, NORMAL INSPECTION, NORMOCEPHALIC - Eye Exam Eye Exam: EOMI, PERRL. absent: Scleral icterus Pupil Exam: NORMAL ACCOMODATION - ENT Exam ENT Exam: Mucous Membranes Dry, Normal External Ear Exam, Normal Oropharynx - Neck Exam Neck exam: Negative for: Lymphadenopathy, Thyromegaly - Respiratory Exam Respiratory Exam: Decreased Breath Sounds, Clear to Auscultation Bilateral - Cardiovascular Exam Cardiovascular Exam: REGULAR RHYTHM, +S1, +S2 - GI/Abdominal Exam GI & Abdominal Exam: Diminished Bowel Sounds, Distended, Soft, Tenderness. absent: Guarding, Organomegaly, Pulsatile Mass, Rebound, Rigid - Rectal Exam Rectal Exam: Deferred - Exam Exam: NORMAL INSPECTION - Extremities Exam Extremities exam: Positive for: pedal pulses present. Negative for: calf tenderness, pedal edema, tenderness - Back Exam Back exam: absent: CVA tenderness (L), CVA tenderness (R), paraspinal tenderness - Neurological Exam Neurological exam: Alert, CN II-XII Intact, Oriented x3, Reflexes Normal - Psychiatric Exam Psychiatric exam: Normal Mood - Skin Skin Exam: Dry Results - Vital Signs Recent Vital Signs: Last Vital Signs Temp 98.4 F 12/04/17 09:00 Pulse 80 12/04/17 08:47 Resp 20 12/04/17 08:47 BP 103/63 12/04/17 08:47 Pulse Ox 99 12/04/17 08:47 - Labs Result Diagrams: 12/04/17 11:22 12/04/17 10:50 Labs: Laboratory Results - last 24 hr 12/03/17 12/03/17 12/03/17 00:00 23:31 23:54 WBC 15.1 H D RBC 4.42 Hgb 11.3 L Hct 35.7 MCV 80.8 L D MCH 25.6 L MCHC 31.7 L RDW 15.6 H Plt Count 255 MPV 8.5 Neut % (Auto) 81.0 H Lymph % (Auto) 10.4 L [place] % (Auto) 7.6 Eos % (Auto) 0.3 Baso % (Auto) 0.7 Neut # 12.2 H Lymph # 1.6 [place] # 1.1 H Eos # 0.0 Baso # 0.1 PT INR APTT pO2 26 L VBG pH 7.44 H VBG pCO2 42 VBG HCO3 26.7 VBG Total CO2 29.8 H VBG O2 Sat (Calc) 52.0 VBG Base Excess 3.9 H VBG Potassium 3.6 Sodium 138.0 Chloride 100.0 Glucose 148 H Lactate 1.3 FiO2 21.0 Potassium Carbon Dioxide Anion Gap BUN Creatinine Est GFR ( Amer) Est GFR (Non-Af Amer) POC Glucose (mg/dL) Random Glucose Calcium Phosphorus Magnesium Total Bilirubin AST ALT Alkaline Phosphatase Total Protein Albumin Globulin Albumin/Globulin Ratio Lipase Carcinoembryonic Ag Venous Blood Potassium 3.6 Urine Color Urine Clarity Urine pH Ur Specific [place] Urine Protein Urine Glucose (UA) Urine Ketones Urine Blood Urine Nitrate Urine Bilirubin Urine Urobilinogen Ur Leukocyte Esterase Urine RBC (Auto) Urine Microscopic WBC Ur Squamous Epith Cells Urine Bacteria Blood Type O POSITIVE Antibody Screen Negative BBK History Checked No verified bt 12/03/17 12/03/17 12/04/17 23:54 23:54 01:01 WBC RBC Hgb Hct MCV MCH MCHC RDW Plt Count MPV Neut % (Auto) Lymph % (Auto) [place] % (Auto) Eos % (Auto) Baso % (Auto) Neut # Lymph # [place] # Eos # Baso # PT 13.5 H INR 1.2 APTT 26.6 pO2 VBG pH VBG pCO2 VBG HCO3 VBG Total CO2 VBG O2 Sat (Calc) VBG Base Excess VBG Potassium Sodium 137 Chloride 99 Glucose Lactate FiO2 Potassium 3.5 L Carbon Dioxide 27 Anion Gap 15 BUN 17 Creatinine 0.7 Est GFR ( Amer) > 60 Est GFR (Non-Af Amer) > 60 POC Glucose (mg/dL) Random Glucose 154 H Calcium 9.5 Phosphorus 4.3 Magnesium 1.7 Total Bilirubin 0.5 AST 17 ALT 31 Alkaline Phosphatase 116 Total Protein 7.3 Albumin 3.8 Globulin 3.5 Albumin/Globulin Ratio 1.1 Lipase 52 Carcinoembryonic Ag Venous Blood Potassium Urine Color Yellow Urine Clarity Slighty-cloudy Urine pH 6.0 Ur Specific [place] 1.016 Urine Protein Negative Urine Glucose (UA) Neg Urine Ketones Negative Urine Blood Moderate Urine Nitrate Negative Urine Bilirubin Negative Urine Urobilinogen 0.2-1.0 Ur Leukocyte Esterase Small Urine RBC (Auto) 5 H Urine Microscopic WBC 23 H Ur Squamous Epith Cells 1 Urine Bacteria Rare Blood Type Antibody Screen BBK History Checked 12/04/17 12/04/17 12/04/17 10:50 11:00 11:22 WBC 13.0 H RBC 4.03 Hgb 10.3 L Hct 32.7 L MCV 81.2 MCH 25.5 L MCHC 31.4 L RDW 15.5 H Plt Count 224 MPV 8.5 Neut % (Auto) 79.8 H Lymph % (Auto) 12.1 L [place] % (Auto) 7.6 Eos % (Auto) 0.4 Baso % (Auto) 0.1 Neut # 10.4 H Lymph # 1.6 [place] # 1.0 H Eos # 0.1 Baso # 0.0 PT INR APTT pO2 VBG pH VBG pCO2 VBG HCO3 VBG Total CO2 VBG O2 Sat (Calc) VBG Base Excess VBG Potassium Sodium 142 Chloride 104 Glucose Lactate FiO2 Potassium 3.6 Carbon Dioxide 29 Anion Gap 13 BUN 11 Creatinine 0.6 L Est GFR ( Amer) > 60 Est GFR (Non-Af Amer) > 60 POC Glucose (mg/dL) 102 Random Glucose 119 H Calcium 9.0 Phosphorus Magnesium Total Bilirubin 0.5 AST 21 ALT 33 Alkaline Phosphatase 102 Total Protein 6.6 Albumin 3.2 L Globulin 3.4 Albumin/Globulin Ratio 0.9 L Lipase Carcinoembryonic Ag 2.7 Venous Blood Potassium Urine Color Urine Clarity Urine pH Ur Specific [place] Urine Protein Urine Glucose (UA) Urine Ketones Urine Blood Urine Nitrate Urine Bilirubin Urine Urobilinogen Ur Leukocyte Esterase Urine RBC (Auto) Urine Microscopic WBC Ur Squamous Epith Cells Urine Bacteria Blood Type Antibody Screen BBK History Checked Assessment & Plan (1) Adnexal mass Status: Acute (2) Pelvic pain Status: Acute (3) Weight loss Status: Acute (4) Acute gastritis Status: Acute - Assessment and Plan (Free Text) Assessment: intraabd abscess vs malignancy consider GI eval
[2017-12-04] MEDS: metroNIDAZOLE 500mg/100ml NS 100 ML IVPB SCH ×2 (14:21→21:07)
[2017-12-04] MEDS ORDERED: Ciprofloxacin 400mg/200ml D5W 400 MG/200 ML BAG IVPB SCH (16:00)
[2017-12-04 20:12] LABS: HEPATITIS B SURFACE AG Negative (NEGATIVE)
[2017-12-04 20:18] LABS: HEPATITIS A IGM NEGATIVE (NEGATIVE); HEPATITIS B CORE AB NEGATIVE (NEGATIVE)
[2017-12-04 20:29] LABS: HEPATITIS C ANTIBODY NEGATIVE (NEGATIVE)
[2017-12-05] MEDS: HYDROmorphone 0.5 mg/0.5 ml ISec IVP PRN ×3 (01:58→21:47)
[2017-12-05] MEDS: Dextrose 5%/Lactated Ringer's 1,000 ML IV SCH (02:31)
[2017-12-05] MEDS: Ciprofloxacin 400mg/200ml D5W 400 MG/200 ML BAG IVPB SCH ×2 (04:11→16:40)
[2017-12-05] MEDS: metroNIDAZOLE 500mg/100ml NS 100 ML IVPB SCH ×3 (05:37→21:42)
[2017-12-05] MEDS: Insulin Regular 100 units/ml SC SCH ×4 (06:32→21:48)
--- NOTE | 2017-12-05 07:46 | CP.PCM.PN ---
<Annabelle Auguste - Last Filed: 12/05/17 09:32> Subjective - Date & Time of Evaluation Date of Evaluation: 12/05/17 Time of Evaluation: 07:00 - Subjective Subjective: General surgery consult for Dr. Romeo-Annabelle Auguste, PGY-1 Pt S & E at bedside. Pt reports continued ab pain, no changes. Also reports dizziness. Denies N & V , bloody output from rectum, stool. Objective - Vital Signs/Intake and Output Vital Signs (last 24 hours): Temp Pulse Resp BP Pulse Ox 98.7 F 82 18 121/75 99 12/05/17 04:17 12/05/17 04:17 12/05/17 04:17 12/05/17 04:17 12/05/17 04:17 - Medications Medications: Current Medications Dextrose (Dextrose 50% Inj) 0 ml IV STAT PRN; Protocol PRN Reason: Hypoglycemia Protocol Dextrose (Glutose 15) 0 gm PO ONCE PRN; Protocol PRN Reason: Hypoglycemia Protocol Glucagon (Glucagen Diagnostic Kit) 0 mg IM STAT PRN; Protocol PRN Reason: Hypoglycemia Protocol Hydromorphone HCl (Dilaudid) 1 mg IVP Q4 PRN PRN Reason: Pain, moderate (4-7) Last Admin: 12/05/17 01:58 Dose: 1 mg Metronidazole (Flagyl 500mg/100ml Ns) 100 mls @ 100 mls/hr IVPB Q8@0600,1400, 2200 [facility] PRN Reason: Protocol Last Admin: 12/05/17 05:37 Dose: 100 mls/hr Ciprofloxacin (Cipro 400mg/200ml Dsw) 400 mg in 200 mls @ 200 mls/hr IVPB Q12@ 0400,1600 [facility] PRN Reason: Protocol Last Admin: 12/05/17 04:11 Dose: 200 mls/hr Insulin Human Regular (Humulin R) 0 units SC ACHS [facility] PRN Reason: Protocol Last Admin: 12/05/17 06:32 Dose: Not Given Ondansetron HCl (Zofran Inj) 4 mg IVP Q4 PRN PRN Reason: Nausea/Vomiting Pantoprazole Sodium (Protonix Inj) 40 mg IVP DAILY [facility] Last Admin: 12/04/17 08:40 Dose: 40 mg - Labs Labs: 12/04/17 11:22 12/04/17 10:50 PT 13.5 Seconds (9.8-13.1) H 12/03/17 23:54 INR 1.2 (0.9-1.2) 12/03/17 23:54 APTT 26.6 Seconds (25.6-37.1) 12/03/17 23:54 - Constitutional Appears: Non-toxic, No Acute Distress - Head Exam Head Exam: ATRAUMATIC, NORMAL INSPECTION, NORMOCEPHALIC - Eye Exam Eye Exam: EOMI, Normal appearance - ENT Exam ENT Exam: Mucous Membranes Moist, Normal Exam - Neck Exam Neck Exam: Full ROM, Normal Inspection - Respiratory Exam Respiratory Exam: NORMAL BREATHING PATTERN - Cardiovascular Exam Cardiovascular Exam: REGULAR RHYTHM, +S1, +S2 - GI/Abdominal Exam GI & Abdominal Exam: Soft, Tenderness (diffuse). absent: Distended, Firm, Guarding, Rigid - Extremities Exam Extremities Exam: Normal Inspection - Neurological Exam Neurological Exam: Alert, Awake, CN II-XII Intact, Oriented x3 - Psychiatric Exam Psychiatric exam: Normal Affect, Normal Mood - Skin Skin Exam: Dry, Intact, Normal Color, Warm Assessment and Plan - Assessment and Plan (Free Text) Assessment: 61F w/ab pain, differential includes diverticulitis w/abscess vs. 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 Agree with resident's note above. Objective - Vital Signs/Intake and Output Vital Signs (last 24 hours): Temp Pulse Resp BP Pulse Ox 98.3 F 74 18 115/73 98 12/05/17 08:15 12/05/17 08:15 12/05/17 08:15 12/05/17 08:15 12/05/17 08:15 - Medications Medications: Current Medications Alprazolam (Xanax) 1 mg PO DAILY [facility] Dextrose (Dextrose 50% Inj) 0 ml IV STAT PRN; Protocol PRN Reason: Hypoglycemia Protocol Dextrose (Glutose 15) 0 gm PO ONCE PRN; Protocol PRN Reason: Hypoglycemia Protocol Enoxaparin Sodium (Lovenox) 40 mg SC DAILY [facility] PRN Reason: Protocol Glucagon (Glucagen Diagnostic Kit) 0 mg IM STAT PRN; Protocol PRN Reason: Hypoglycemia Protocol Hydromorphone HCl (Dilaudid) 1 mg IVP Q4 PRN PRN Reason: Pain, moderate (4-7) Last Admin: 12/05/17 07:53 Dose: 1 mg Metronidazole (Flagyl 500mg/100ml Ns) 100 mls @ 100 mls/hr IVPB Q8@0600,1400, 2200 [facility] PRN Reason: Protocol Last Admin: 12/05/17 05:37 Dose: 100 mls/hr Ciprofloxacin (Cipro 400mg/200ml Dsw) 400 mg in 200 mls @ 200 mls/hr IVPB Q12@ 0400,1600 [facility] PRN Reason: Protocol Last Admin: 12/05/17 04:11 Dose: 200 mls/hr Insulin Human Regular (Humulin R) 0 units SC ACHS [facility] PRN Reason: Protocol Last Admin: 12/05/17 06:32 Dose: Not Given Ondansetron HCl (Zofran Inj) 4 mg IVP Q4 PRN PRN Reason: Nausea/Vomiting Pantoprazole Sodium (Protonix Inj) 40 mg IVP DAILY [facility] Last Admin: 12/05/17 08:40 Dose: 40 mg Sucralfate (Carafate Oral Susp) 1 gm PO DAILY [facility] - Labs Labs: 12/04/17 11:22 12/04/17 10:50 PT 13.5 Seconds (9.8-13.1) H 12/03/17 23:54 INR 1.2 (0.9-1.2) 12/03/17 23:54 APTT 26.6 Seconds (25.6-37.1) 12/03/17 23:54
[2017-12-05 10:29] LABS: HEMOGLOBIN 9.9 g/dL (12.0-16.0); MEAN CELL VOLUME 81.1 fl (81.0-99.0); MEAN CORPUSCULAR HGB CONC 32.1 g/dL (33.0-37.0); RBC 3.82 Mil/uL (3.80-5.20); RED CELL DISTRIBUTION WIDTH 15.2 % (11.5-14.5); WHITE BLOOD COUNT 10.5 K/uL (4.8-10.8)
[2017-12-05] MEDS: Enoxaparin 40 mg Syringe SC SCH (10:38)
--- NOTE | 2017-12-05 10:57 | CP.PCM.PN ---
Subjective - Date & Time of Evaluation Date of Evaluation: 12/05/17 Time of Evaluation: 07:00 - Subjective Subjective: still with abd pain and vomiting for MRI today no fever not septic no true PCN allergy May need exploration Objective - Vital Signs/Intake and Output Vital Signs (last 24 hours): Temp Pulse Resp BP Pulse Ox 98.3 F 74 18 115/73 98 12/05/17 08:15 12/05/17 08:15 12/05/17 08:15 12/05/17 08:15 12/05/17 08:15 - Medications Medications: Current Medications Alprazolam (Xanax) 1 mg PO DAILY [facility] Last Admin: 12/05/17 10:38 Dose: 1 mg Dextrose (Dextrose 50% Inj) 0 ml IV STAT PRN; Protocol PRN Reason: Hypoglycemia Protocol Dextrose (Glutose 15) 0 gm PO ONCE PRN; Protocol PRN Reason: Hypoglycemia Protocol Enoxaparin Sodium (Lovenox) 40 mg SC DAILY [facility] PRN Reason: Protocol Last Admin: 12/05/17 10:38 Dose: 40 mg Glucagon (Glucagen Diagnostic Kit) 0 mg IM STAT PRN; Protocol PRN Reason: Hypoglycemia Protocol Hydromorphone HCl (Dilaudid) 1 mg IVP Q4 PRN PRN Reason: Pain, moderate (4-7) Last Admin: 12/05/17 07:53 Dose: 1 mg Metronidazole (Flagyl 500mg/100ml Ns) 100 mls @ 100 mls/hr IVPB Q8@0600,1400, 2200 [facility] PRN Reason: Protocol Last Admin: 12/05/17 05:37 Dose: 100 mls/hr Ciprofloxacin (Cipro 400mg/200ml Dsw) 400 mg in 200 mls @ 200 mls/hr IVPB Q12@ 0400,1600 [facility] PRN Reason: Protocol Last Admin: 12/05/17 04:11 Dose: 200 mls/hr Insulin Human Regular (Humulin R) 0 units SC ACHS [facility] PRN Reason: Protocol Last Admin: 12/05/17 06:32 Dose: Not Given Ondansetron HCl (Zofran Inj) 4 mg IVP Q4 PRN PRN Reason: Nausea/Vomiting Last Admin: 12/05/17 10:40 Dose: 4 mg Pantoprazole Sodium (Protonix Inj) 40 mg IVP DAILY [facility] Last Admin: 12/05/17 08:40 Dose: 40 mg Sucralfate (Carafate Oral Susp) 1 gm PO DAILY [facility] - Labs Labs: 12/05/17 10:24 12/04/17 10:50 PT 13.5 Seconds (9.8-13.1) H 12/03/17 23:54 INR 1.2 (0.9-1.2) 12/03/17 23:54 APTT 26.6 Seconds (25.6-37.1) 12/03/17 23:54 - Constitutional Appears: Non-toxic, Chronically Ill - Head Exam Head Exam: NORMOCEPHALIC - Eye Exam Eye Exam: PERRL. absent: Scleral icterus - ENT Exam ENT Exam: Mucous Membranes Dry - Respiratory Exam Respiratory Exam: Decreased Breath Sounds - Cardiovascular Exam Cardiovascular Exam: REGULAR RHYTHM - GI/Abdominal Exam GI & Abdominal Exam: Distended, Soft. absent: Tenderness - Rectal Exam Rectal Exam: Deferred - Exam Exam: NORMAL INSPECTION Assessment and Plan (1) Adnexal mass Status: Acute (2) Pelvic pain Status: Acute (3) Weight loss Status: Acute (4) Acute gastritis Status: Acute
[2017-12-05 11:33] LABS: BLOOD UREA NITROGEN 6 mg/dl (7-17); GFR AFRICAN-AMERICAN > 60; GFR NON-AFRICAN AMERICAN > 60
[2017-12-05] MEDS: Sucralfate 1 gm/10 ml Oral Susp UD PO SCH (12:14)
[2017-12-05] MEDS ORDERED: Gadodiamide 287 MG/ML VIAL (15ML) IV ONE (16:47)
--- NOTE | 2017-12-05 17:43 | CP.PCM.PN ---
Subjective - Date & Time of Evaluation Date of Evaluation: 12/05/17 Time of Evaluation: 10:05 - Subjective Subjective: Patient seen and examined at bedside with attending-Dr. Young. Nausea and abdominal/pelvic pain persist. Denies chest pain, SOB or weakness. Objective - Vital Signs/Intake and Output Vital Signs (last 24 hours): Temp Pulse Resp BP Pulse Ox 98.4 F 82 18 100/63 99 12/05/17 16:02 12/05/17 16:02 12/05/17 16:02 12/05/17 16:02 12/05/17 16:02 - Medications Medications: Current Medications Alprazolam (Xanax) 1 mg PO DAILY [facility] Last Admin: 12/05/17 10:38 Dose: 1 mg Dextrose (Dextrose 50% Inj) 0 ml IV STAT PRN; Protocol PRN Reason: Hypoglycemia Protocol Dextrose (Glutose 15) 0 gm PO ONCE PRN; Protocol PRN Reason: Hypoglycemia Protocol Docusate Sodium (Colace) 100 mg PO BID [facility] Enoxaparin Sodium (Lovenox) 40 mg SC DAILY [facility] PRN Reason: Protocol Last Admin: 12/05/17 10:38 Dose: 40 mg Glucagon (Glucagen Diagnostic Kit) 0 mg IM STAT PRN; Protocol PRN Reason: Hypoglycemia Protocol Hydromorphone HCl (Dilaudid) 1 mg IVP Q4 PRN PRN Reason: Pain, moderate (4-7) Last Admin: 12/05/17 07:53 Dose: 1 mg Metronidazole (Flagyl 500mg/100ml Ns) 100 mls @ 100 mls/hr IVPB Q8@0600,1400, 2200 [facility] PRN Reason: Protocol Last Admin: 12/05/17 15:34 Dose: 100 mls/hr Ciprofloxacin (Cipro 400mg/200ml Dsw) 400 mg in 200 mls @ 200 mls/hr IVPB Q12@ 0400,1600 [facility] PRN Reason: Protocol Last Admin: 12/05/17 16:40 Dose: 200 mls/hr Insulin Human Regular (Humulin R) 0 units SC ACHS [facility] PRN Reason: Protocol Last Admin: 12/05/17 16:40 Dose: Not Given Ondansetron HCl (Zofran Inj) 4 mg IVP Q4 PRN PRN Reason: Nausea/Vomiting Last Admin: 12/05/17 10:40 Dose: 4 mg Pantoprazole Sodium (Protonix Inj) 40 mg IVP BID [facility] Last Admin: 12/05/17 16:44 Dose: 40 mg Sucralfate (Carafate Oral Susp) 1 gm PO DAILY [facility] Last Admin: 12/05/17 12:14 Dose: 1 gm - Labs Labs: 12/05/17 10:24 12/05/17 10:24 PT 13.5 Seconds (9.8-13.1) H 12/03/17 23:54 INR 1.2 (0.9-1.2) 12/03/17 23:54 APTT 26.6 Seconds (25.6-37.1) 12/03/17 23:54 - Constitutional Appears: No Acute Distress - Head Exam Head Exam: ATRAUMATIC, NORMOCEPHALIC - Eye Exam Eye Exam: EOMI - ENT Exam ENT Exam: Mucous Membranes Moist - Neck Exam Neck Exam: Full ROM - Respiratory Exam Respiratory Exam: Clear to Ausculation Bilateral, NORMAL BREATHING PATTERN - Cardiovascular Exam Cardiovascular Exam: REGULAR RHYTHM, +S1, +S2 - GI/Abdominal Exam GI & Abdominal Exam: Tenderness (to palpation-diffuse), Normal Bowel Sounds - Extremities Exam Extremities Exam: Full ROM. absent: Calf Tenderness, Pedal Edema - Neurological Exam Neurological Exam: Alert, Awake, CN II-XII Intact, Oriented x3 - Psychiatric Exam Psychiatric exam: Normal Affect, Normal Mood - Skin Skin Exam: Dry, Normal Color, Warm Assessment and Plan - Assessment and Plan (Free Text) Assessment: 61 yr old F admitted for abdominal pain with CT abd/pelvic findings suggestive of diverticulitis vs tubo-ovarian abscess with secondary colitis. -leukocytosis- mild improvement -ID on consult: will follow recommendations -continue with present management: IV antibiotics, advance diet as tolerated -Obgyn consult appreciated: will follow recommendations -GI consult appreciated -Surgery: no surgical intervention at this time -f/u Pelvic MRI, Ca-125 -outpatient colonoscopy once discharged
[2017-12-06] MEDS: HYDROmorphone 0.5 mg/0.5 ml ISec IVP PRN ×2 (03:54→14:04)
[2017-12-06] MEDS: Ciprofloxacin 400mg/200ml D5W 400 MG/200 ML BAG IVPB SCH (03:57)
[2017-12-06] MEDS: metroNIDAZOLE 500mg/100ml NS 100 ML IVPB SCH ×3 (05:23→21:27)
[2017-12-06] MEDS: Insulin Regular 100 units/ml SC SCH ×4 (06:35→21:27)
[2017-12-06] MEDS: Sucralfate 1 gm/10 ml Oral Susp UD PO SCH (08:29)
[2017-12-06] MEDS: Enoxaparin 40 mg Syringe SC SCH (08:29)
--- NOTE | 2017-12-06 12:00 | CP.PCM.PN ---
<Annabelle Auguste - Last Filed: 12/06/17 12:09> Subjective - Date & Time of Evaluation Date of Evaluation: 12/06/17 - Subjective Subjective: General surgery consult for Dr. Naseem Auguste, PGY-1 Pt S & E at bedside. Pt Objective - Vital Signs/Intake and Output Vital Signs (last 24 hours): Temp Pulse Resp BP Pulse Ox 98.6 F 71 20 110/68 97 12/06/17 08:04 12/06/17 08:04 12/06/17 08:04 12/06/17 08:04 12/06/17 08:04 - Medications Medications: Current Medications Alprazolam (Xanax) 1 mg PO DAILY [facility] Last Admin: 12/06/17 08:46 Dose: 1 mg Dextrose (Dextrose 50% Inj) 0 ml IV STAT PRN; Protocol PRN Reason: Hypoglycemia Protocol Dextrose (Glutose 15) 0 gm PO ONCE PRN; Protocol PRN Reason: Hypoglycemia Protocol Docusate Sodium (Colace) 100 mg PO BID [facility] Last Admin: 12/06/17 08:29 Dose: 100 mg Enoxaparin Sodium (Lovenox) 40 mg SC DAILY [facility] PRN Reason: Protocol Last Admin: 12/06/17 08:29 Dose: 40 mg Glucagon (Glucagen Diagnostic Kit) 0 mg IM STAT PRN; Protocol PRN Reason: Hypoglycemia Protocol Hydromorphone HCl (Dilaudid) 1 mg IVP Q4 PRN PRN Reason: Pain, moderate (4-7) Last Admin: 12/06/17 03:54 Dose: 1 mg Metronidazole (Flagyl 500mg/100ml Ns) 100 mls @ 100 mls/hr IVPB Q8@0600,1400, 2200 [facility] PRN Reason: Protocol Last Admin: 12/06/17 05:23 Dose: 100 mls/hr Ciprofloxacin (Cipro 400mg/200ml Dsw) 400 mg in 200 mls @ 200 mls/hr IVPB Q12@ 0400,1600 [facility] PRN Reason: Protocol Last Admin: 12/06/17 03:57 Dose: 200 mls/hr Insulin Human Regular (Humulin R) 0 units SC ACHS [facility] PRN Reason: Protocol Last Admin: 12/06/17 06:35 Dose: Not Given Ondansetron HCl (Zofran Inj) 4 mg IVP Q4 PRN PRN Reason: Nausea/Vomiting Last Admin: 12/06/17 05:22 Dose: 4 mg Pantoprazole Sodium (Protonix Inj) 40 mg IVP BID [facility] Last Admin: 12/06/17 08:30 Dose: 40 mg Sucralfate (Carafate Oral Susp) 1 gm PO DAILY [facility] Last Admin: 12/06/17 08:29 Dose: 1 gm - Labs Labs: 12/05/17 10:24 12/05/17 10:24 PT 13.5 Seconds (9.8-13.1) H 12/03/17 23:54 INR 1.2 (0.9-1.2) 12/03/17 23:54 APTT 26.6 Seconds (25.6-37.1) 12/03/17 23:54 Assessment and Plan - Assessment and Plan (Free Text) Assessment: 61F w/ab pain, differential includes diverticulitis w/abscess vs. tubo-ovarian abscess; more likely tubo-ovarian abscess Plan: Cont IV Abx Pain mgmt Recommend outpatient colonoscopy [place] 125 223 (high) Attending DW case w/repairer [employer]- plan for possible OR on Monday DW attending Kalyani, PGY-1 <Gonzalo Marie - Last Filed: 12/06/17 14:28> Subjective - Date & Time of Evaluation Time of Evaluation: 13:00 - Subjective Subjective: Patient was seen and examined at the bedside. Agree with resident's note above. Objective - Vital Signs/Intake and Output Vital Signs (last 24 hours): Temp Pulse Resp BP Pulse Ox 98.6 F 71 20 110/68 97 12/06/17 08:04 12/06/17 08:04 12/06/17 08:04 12/06/17 08:04 12/06/17 08:04 - Medications Medications: Current Medications Alprazolam (Xanax) 1 mg PO DAILY [facility] Last Admin: 12/06/17 08:46 Dose: 1 mg Dextrose (Dextrose 50% Inj) 0 ml IV STAT PRN; Protocol PRN Reason: Hypoglycemia Protocol Dextrose (Glutose 15) 0 gm PO ONCE PRN; Protocol PRN Reason: Hypoglycemia Protocol Docusate Sodium (Colace) 100 mg PO BID [facility] Last Admin: 12/06/17 08:29 Dose: 100 mg Enoxaparin Sodium (Lovenox) 40 mg SC DAILY [facility] PRN Reason: Protocol Last Admin: 12/06/17 08:29 Dose: 40 mg Glucagon (Glucagen Diagnostic Kit) 0 mg IM STAT PRN; Protocol PRN Reason: Hypoglycemia Protocol Hydromorphone HCl (Dilaudid) 1 mg IVP Q4 PRN PRN Reason: Pain, moderate (4-7) Last Admin: 12/06/17 14:04 Dose: 1 mg Metronidazole (Flagyl 500mg/100ml Ns) 100 mls @ 100 mls/hr IVPB Q8@0600,1400, 2200 [facility] PRN Reason: Protocol Last Admin: 12/06/17 05:23 Dose: 100 mls/hr Aztreonam 1 gm/ Sodium (Chloride) 100 mls @ 100 mls/hr IVPB Q8 [facility] PRN Reason: Protocol Insulin Human Regular (Humulin R) 0 units SC ACHS [facility] PRN Reason: Protocol Last Admin: 12/06/17 06:35 Dose: Not Given Ondansetron HCl (Zofran Inj) 4 mg IVP Q4 PRN PRN Reason: Nausea/Vomiting Last Admin: 12/06/17 05:22 Dose: 4 mg Pantoprazole Sodium (Protonix Inj) 40 mg IVP BID [facility] Last Admin: 12/06/17 08:30 Dose: 40 mg Sucralfate (Carafate Oral Susp) 1 gm PO DAILY [facility] Last Admin: 12/06/17 08:29 Dose: 1 gm - Labs Labs: 12/05/17 10:24 12/05/17 10:24 PT 13.5 Seconds (9.8-13.1) H 12/03/17 23:54 INR 1.2 (0.9-1.2) 12/03/17 23:54 APTT 26.6 Seconds (25.6-37.1) 12/03/17 23:54
--- NOTE | 2017-12-06 13:06 | CP.PCM.PN ---
Subjective - Date & Time of Evaluation Date of Evaluation: 12/06/17 Time of Evaluation: 08:00 - Subjective Subjective: urine + ecoli r to cipro azactam added Objective - Vital Signs/Intake and Output Vital Signs (last 24 hours): Temp Pulse Resp BP Pulse Ox 98.6 F 71 20 110/68 97 12/06/17 08:04 12/06/17 08:04 12/06/17 08:04 12/06/17 08:04 12/06/17 08:04 - Medications Medications: Current Medications Alprazolam (Xanax) 1 mg PO DAILY [facility] Last Admin: 12/06/17 08:46 Dose: 1 mg Dextrose (Dextrose 50% Inj) 0 ml IV STAT PRN; Protocol PRN Reason: Hypoglycemia Protocol Dextrose (Glutose 15) 0 gm PO ONCE PRN; Protocol PRN Reason: Hypoglycemia Protocol Docusate Sodium (Colace) 100 mg PO BID [facility] Last Admin: 12/06/17 08:29 Dose: 100 mg Enoxaparin Sodium (Lovenox) 40 mg SC DAILY [facility] PRN Reason: Protocol Last Admin: 12/06/17 08:29 Dose: 40 mg Glucagon (Glucagen Diagnostic Kit) 0 mg IM STAT PRN; Protocol PRN Reason: Hypoglycemia Protocol Hydromorphone HCl (Dilaudid) 1 mg IVP Q4 PRN PRN Reason: Pain, moderate (4-7) Last Admin: 12/06/17 03:54 Dose: 1 mg Metronidazole (Flagyl 500mg/100ml Ns) 100 mls @ 100 mls/hr IVPB Q8@0600,1400, 2200 [facility] PRN Reason: Protocol Last Admin: 12/06/17 05:23 Dose: 100 mls/hr Aztreonam 1 gm/ Sodium (Chloride) 100 mls @ 100 mls/hr IVPB Q8 [facility] PRN Reason: Protocol Insulin Human Regular (Humulin R) 0 units SC ACHS [facility] PRN Reason: Protocol Last Admin: 12/06/17 06:35 Dose: Not Given Ondansetron HCl (Zofran Inj) 4 mg IVP Q4 PRN PRN Reason: Nausea/Vomiting Last Admin: 12/06/17 05:22 Dose: 4 mg Pantoprazole Sodium (Protonix Inj) 40 mg IVP BID [facility] Last Admin: 12/06/17 08:30 Dose: 40 mg Sucralfate (Carafate Oral Susp) 1 gm PO DAILY [facility] Last Admin: 12/06/17 08:29 Dose: 1 gm - Labs Labs: 12/05/17 10:24 12/05/17 10:24 PT 13.5 Seconds (9.8-13.1) H 12/03/17 23:54 INR 1.2 (0.9-1.2) 12/03/17 23:54 APTT 26.6 Seconds (25.6-37.1) 12/03/17 23:54 Assessment and Plan (1) Adnexal mass Status: Acute (2) Pelvic pain Status: Acute (3) Weight loss Status: Acute (4) Acute gastritis Status: Acute
--- NOTE | 2017-12-06 14:59 | MRI ---
PROCEDURE: MRI pelvis HISTORY: enlarged complex appearing left ovary on TVUS COMPARISON: CT abdomen and pelvis 12/04/2017, and pelvic ultrasound 12/04/2017 TECHNIQUE: Multi sequence, multiplanar imaging of the pelvis was performed both with and without intravenous gadolinium administration. FINDINGS: There is a left adnexal mass measuring roughly 4.2 x 4.5 x 6.6 cm. Within this mass there are multiple rounded and tubular fluid collections. There are fluid/fluid levels seen within many of these fluid collections. There is suspicion of hydrosalpinx at the medial aspect of this structure. This is manifested as a tubular fluid-filled structure similar in appearance otherwise to the rounded fluid-filled structures as part of this mass. There is thick peripheral enhancement seen about this mass and within the mass surrounding the fluid collections, on post gadolinium images. These findings are suspicious for tubo-ovarian abscess. Less likely is ovarian neoplasm. Please correlate clinically. The ovary is not identified separately from this process. Decompressed sigmoid colon is seen traversing the medial aspect of this mass, as on CT examination of the previous day. The right ovary is unremarkable. The uterus is significant for 6 mm left lower uterine segment intramural fibroid. The endometrium is thin and smooth. There is no endometrial fluid. There is no free fluid in the cul-de-sac. There is no pelvic lymphadenopathy. The visualized osseous structures demonstrate unremarkable marrow signal. IMPRESSION: Suspected left tubo-ovarian abscess. Differential diagnosis would include neoplasm, though less likely. Please correlate clinically. Possible hydrosalpinx. Preliminary interpretation of this examination was reported by [employer] at 7:33 p.m. on 12/05/2017. There is concurrence of this report with the preliminary interpretation.
[2017-12-06] MEDS: Aztreonam 1 GM in Sodium Chloride 0.9% 100 ML IVPB SCH (17:43)
--- NOTE | 2017-12-06 17:45 | CP.PCM.PN ---
Subjective - Date & Time of Evaluation Date of Evaluation: 12/06/17 Time of Evaluation: 10:30 - Subjective Subjective: Patient seen and examined at bedside with attending-Dr. Young. Patient is tolerating PO diet, nause has improved, abdominal pain persists. Objective - Vital Signs/Intake and Output Vital Signs (last 24 hours): Temp Pulse Resp BP Pulse Ox 98.4 F 81 18 137/82 98 12/06/17 16:30 12/06/17 16:30 12/06/17 16:30 12/06/17 16:30 12/06/17 16:30 - Medications Medications: Current Medications Alprazolam (Xanax) 1 mg PO DAILY [facility] Last Admin: 12/06/17 08:46 Dose: 1 mg Dextrose (Dextrose 50% Inj) 0 ml IV STAT PRN; Protocol PRN Reason: Hypoglycemia Protocol Dextrose (Glutose 15) 0 gm PO ONCE PRN; Protocol PRN Reason: Hypoglycemia Protocol Docusate Sodium (Colace) 100 mg PO BID [facility] Last Admin: 12/06/17 16:45 Dose: 100 mg Enoxaparin Sodium (Lovenox) 40 mg SC DAILY [facility] PRN Reason: Protocol Last Admin: 12/06/17 08:29 Dose: 40 mg Glucagon (Glucagen Diagnostic Kit) 0 mg IM STAT PRN; Protocol PRN Reason: Hypoglycemia Protocol Hydromorphone HCl (Dilaudid) 1 mg IVP Q4 PRN PRN Reason: Pain, moderate (4-7) Last Admin: 12/06/17 14:04 Dose: 1 mg Metronidazole (Flagyl 500mg/100ml Ns) 100 mls @ 100 mls/hr IVPB Q8@0600,1400, 2200 [facility] PRN Reason: Protocol Last Admin: 12/06/17 15:16 Dose: 100 mls/hr Aztreonam 1 gm/ Sodium (Chloride) 100 mls @ 100 mls/hr IVPB Q8 [facility] PRN Reason: Protocol Insulin Human Regular (Humulin R) 0 units SC ACHS [facility] PRN Reason: Protocol Last Admin: 12/06/17 16:45 Dose: Not Given Ondansetron HCl (Zofran Inj) 4 mg IVP Q4 PRN PRN Reason: Nausea/Vomiting Last Admin: 12/06/17 05:22 Dose: 4 mg Pantoprazole Sodium (Protonix Inj) 40 mg IVP BID [facility] Last Admin: 12/06/17 16:46 Dose: 40 mg Sucralfate (Carafate Oral Susp) 1 gm PO DAILY [facility] Last Admin: 12/06/17 08:29 Dose: 1 gm - Labs Labs: 12/05/17 10:24 12/05/17 10:24 PT 13.5 Seconds (9.8-13.1) H 12/03/17 23:54 INR 1.2 (0.9-1.2) 12/03/17 23:54 APTT 26.6 Seconds (25.6-37.1) 12/03/17 23:54 - Constitutional Appears: No Acute Distress - Head Exam Head Exam: ATRAUMATIC, NORMOCEPHALIC - Eye Exam Eye Exam: EOMI - ENT Exam ENT Exam: Mucous Membranes Moist - Neck Exam Neck Exam: Full ROM - Respiratory Exam Respiratory Exam: Clear to Ausculation Bilateral, NORMAL BREATHING PATTERN - Cardiovascular Exam Cardiovascular Exam: REGULAR RHYTHM, +S1, +S2 - GI/Abdominal Exam GI & Abdominal Exam: Tenderness, Normal Bowel Sounds - Extremities Exam Extremities Exam: Full ROM. absent: Pedal Edema - Neurological Exam Neurological Exam: Alert, CN II-XII Intact, Oriented x3 - Psychiatric Exam Psychiatric exam: Anxious - Skin Skin Exam: Dry, Warm Assessment and Plan - Assessment and Plan (Free Text) Assessment: 61 yr old F admitted for abdominal pain with CT abd/pelvic findings suggestive of diverticulitis vs tubo-ovarian abscess with secondary colitis. -leukocytosis resolved -ID on consult: will follow recommendations -continue with present management: IV antibiotics, advance diet as tolerated -Obgyn consult appreciated: will follow recommendations -GI consult appreciated -Surgery: possibility of exploratory lap will be considered and discussed -Pelvic MRI: supected left tubo-ovarian abscess, neoplasm less likely, Ca-125 elevated at 223 -outpatient colonoscopy once discharged
[2017-12-07] MEDS: Aztreonam 1 GM in Sodium Chloride 0.9% 100 ML IVPB SCH ×3 (00:57→16:38)
[2017-12-07] MEDS: HYDROmorphone 0.5 mg/0.5 ml ISec IVP PRN ×3 (01:03→19:38)
[2017-12-07] MEDS: metroNIDAZOLE 500mg/100ml NS 100 ML IVPB SCH ×3 (06:01→21:18)
[2017-12-07] MEDS: Insulin Regular 100 units/ml SC SCH ×4 (07:28→21:40)
[2017-12-07] MEDS: Enoxaparin 40 mg Syringe SC SCH (08:42)
[2017-12-07] MEDS: Sucralfate 1 gm/10 ml Oral Susp UD PO SCH (08:42)
--- NOTE | 2017-12-07 10:48 | CP.PCM.PN ---
Subjective - Date & Time of Evaluation Date of Evaluation: 12/07/17 Time of Evaluation: 10:05 - Subjective Subjective: Patient was seen and examined at the bedside. States that feels better. Objective - Vital Signs/Intake and Output Vital Signs (last 24 hours): Temp Pulse Resp BP Pulse Ox 98.7 F 74 20 131/74 97 12/07/17 07:58 12/07/17 07:58 12/07/17 07:58 12/07/17 07:58 12/07/17 07:58 - Medications Medications: Current Medications Alprazolam (Xanax) 1 mg PO DAILY [facility] Last Admin: 12/07/17 08:32 Dose: 1 mg Dextrose (Dextrose 50% Inj) 0 ml IV STAT PRN; Protocol PRN Reason: Hypoglycemia Protocol Dextrose (Glutose 15) 0 gm PO ONCE PRN; Protocol PRN Reason: Hypoglycemia Protocol Docusate Sodium (Colace) 100 mg PO BID [facility] Last Admin: 12/07/17 08:43 Dose: 100 mg Enoxaparin Sodium (Lovenox) 40 mg SC DAILY [facility] PRN Reason: Protocol Last Admin: 12/07/17 08:42 Dose: 40 mg Glucagon (Glucagen Diagnostic Kit) 0 mg IM STAT PRN; Protocol PRN Reason: Hypoglycemia Protocol Hydromorphone HCl (Dilaudid) 1 mg IVP Q4 PRN PRN Reason: Pain, moderate (4-7) Last Admin: 12/07/17 08:32 Dose: 1 mg Metronidazole (Flagyl 500mg/100ml Ns) 100 mls @ 100 mls/hr IVPB Q8@0600,1400, 2200 [facility] PRN Reason: Protocol Last Admin: 12/07/17 06:01 Dose: 100 mls/hr Aztreonam 1 gm/ Sodium (Chloride) 100 mls @ 100 mls/hr IVPB Q8 [facility] PRN Reason: Protocol Last Admin: 12/07/17 08:36 Dose: 100 mls/hr Insulin Human Regular (Humulin R) 0 units SC ACHS [facility] PRN Reason: Protocol Last Admin: 12/07/17 07:28 Dose: Not Given Ondansetron HCl (Zofran Inj) 4 mg IVP Q4 PRN PRN Reason: Nausea/Vomiting Last Admin: 12/06/17 05:22 Dose: 4 mg Pantoprazole Sodium (Protonix Inj) 40 mg IVP BID [facility] Last Admin: 12/07/17 08:44 Dose: 40 mg Sucralfate (Carafate Oral Susp) 1 gm PO DAILY [facility] Last Admin: 12/07/17 08:42 Dose: 1 gm - Labs Labs: 12/05/17 10:24 12/05/17 10:24 PT 13.5 Seconds (9.8-13.1) H 12/03/17 23:54 INR 1.2 (0.9-1.2) 12/03/17 23:54 APTT 26.6 Seconds (25.6-37.1) 12/03/17 23:54 - Constitutional Appears: Well, Non-toxic, No Acute Distress - Head Exam Head Exam: ATRAUMATIC, NORMAL INSPECTION, NORMOCEPHALIC - Eye Exam Eye Exam: EOMI, Normal appearance, PERRL Pupil Exam: NORMAL ACCOMODATION, PERRL - ENT Exam ENT Exam: Mucous Membranes Moist, Normal Exam - Neck Exam Neck Exam: Full ROM, Normal Inspection - Respiratory Exam Respiratory Exam: Clear to Ausculation Bilateral, NORMAL BREATHING PATTERN - Cardiovascular Exam Cardiovascular Exam: REGULAR RHYTHM, +S1, +S2 - GI/Abdominal Exam GI & Abdominal Exam: Soft, Normal Bowel Sounds Additional comments: very mildly tender in the lower abdomen, ND, BS+, no rebound, no guarding, well healed scars from prior abdominoplasty - Rectal Exam Rectal Exam: Deferred - Extremities Exam Extremities Exam: Full ROM, Normal Inspection - Neurological Exam Neurological Exam: Alert, Awake, Oriented x3 - Psychiatric Exam Psychiatric exam: Normal Affect, Normal Mood - Skin Skin Exam: Dry, Intact, Normal Color, Warm Assessment and Plan - Assessment and Plan (Free Text) Assessment: 61 y.o. female with tubo-ovarian abscess Plan: - Continue diet - pain control - Continue antibiotics as per ID - Plan for OR by [employer] team tomorrow - NPO after midnight
--- NOTE | 2017-12-07 14:58 | CP.PCM.PN ---
Subjective - Date & Time of Evaluation Date of Evaluation: 12/07/17 Time of Evaluation: 10:20 - Subjective Subjective: Patient seen and examined at bedside with attending-Dr. Young. Reports tolerating PO diet, abdominal pain has mildly improved. Was evaluated by Obgyn and is agreeable with recommendations. Denies chest pain, weakness, dizziness or SOB. Objective - Vital Signs/Intake and Output Vital Signs (last 24 hours): Temp Pulse Resp BP Pulse Ox 98.7 F 74 20 131/74 97 12/07/17 07:58 12/07/17 07:58 12/07/17 07:58 12/07/17 07:58 12/07/17 07:58 - Medications Medications: Current Medications Alprazolam (Xanax) 1 mg PO DAILY [facility] Last Admin: 12/07/17 08:32 Dose: 1 mg Dextrose (Dextrose 50% Inj) 0 ml IV STAT PRN; Protocol PRN Reason: Hypoglycemia Protocol Dextrose (Glutose 15) 0 gm PO ONCE PRN; Protocol PRN Reason: Hypoglycemia Protocol Docusate Sodium (Colace) 100 mg PO BID [facility] Last Admin: 12/07/17 08:43 Dose: 100 mg Enoxaparin Sodium (Lovenox) 40 mg SC DAILY [facility] PRN Reason: Protocol Last Admin: 12/07/17 08:42 Dose: 40 mg Glucagon (Glucagen Diagnostic Kit) 0 mg IM STAT PRN; Protocol PRN Reason: Hypoglycemia Protocol Hydromorphone HCl (Dilaudid) 1 mg IVP Q4 PRN PRN Reason: Pain, moderate (4-7) Last Admin: 12/07/17 08:32 Dose: 1 mg Metronidazole (Flagyl 500mg/100ml Ns) 100 mls @ 100 mls/hr IVPB Q8@0600,1400, 2200 [facility] PRN Reason: Protocol Last Admin: 12/07/17 06:01 Dose: 100 mls/hr Aztreonam 1 gm/ Sodium (Chloride) 100 mls @ 100 mls/hr IVPB Q8 [facility] PRN Reason: Protocol Last Admin: 12/07/17 08:36 Dose: 100 mls/hr Insulin Human Regular (Humulin R) 0 units SC ACHS [facility] PRN Reason: Protocol Last Admin: 12/07/17 12:52 Dose: 1 unit Ondansetron HCl (Zofran Inj) 4 mg IVP Q4 PRN PRN Reason: Nausea/Vomiting Last Admin: 12/06/17 05:22 Dose: 4 mg Pantoprazole Sodium (Protonix Inj) 40 mg IVP BID [facility] Last Admin: 12/07/17 08:44 Dose: 40 mg Sucralfate (Carafate Oral Susp) 1 gm PO DAILY [facility] Last Admin: 12/07/17 08:42 Dose: 1 gm - Labs Labs: 12/05/17 10:24 12/05/17 10:24 PT 13.5 Seconds (9.8-13.1) H 12/03/17 23:54 INR 1.2 (0.9-1.2) 12/03/17 23:54 APTT 26.6 Seconds (25.6-37.1) 12/03/17 23:54 - Constitutional Appears: No Acute Distress - Head Exam Head Exam: ATRAUMATIC, NORMOCEPHALIC - Eye Exam Eye Exam: EOMI - ENT Exam ENT Exam: Mucous Membranes Moist - Neck Exam Neck Exam: Full ROM - Respiratory Exam Respiratory Exam: Clear to Ausculation Bilateral, NORMAL BREATHING PATTERN - Cardiovascular Exam Cardiovascular Exam: REGULAR RHYTHM, +S1, +S2 - GI/Abdominal Exam GI & Abdominal Exam: Soft, Tenderness (minimal to palpation), Normal Bowel Sounds - Extremities Exam Extremities Exam: Full ROM. absent: Calf Tenderness, Pedal Edema - Neurological Exam Neurological Exam: Alert, Awake, CN II-XII Intact, Oriented x3 - Psychiatric Exam Psychiatric exam: Normal Affect, Normal Mood - Skin Skin Exam: Dry, Normal Color, Warm Assessment and Plan - Assessment and Plan (Free Text) Assessment: 61 yr old F admitted for abdominal pain. Pelvic MRI shows suspected left tubo- ovarian abscess, neoplasm less likely. Obgyn on board, patient is medically stable for surgery. -Pelvic MRI: supected left tubo-ovarian abscess, neoplasm less likely, Ca-125 elevated at 223 -Obgyn consult appreciated: tentative plan for OR tomorrow; NPO after midnight -ID on consult: will follow recommendations -continue with present management: IV antibiotics, regular diet until midnight -GI consult appreciated -Surgery consulted: will follow recommendations
--- NOTE | 2017-12-07 15:13 | RAD ---
HISTORY: Pre-op COMPARISON: 09/30/2015 TECHNIQUE: Chest PA and lateral FINDINGS: LUNGS: No active pulmonary disease. PLEURA: No significant pleural effusion identified. No pneumothorax apparent. CARDIOVASCULAR: Cardiomegaly. No evidence of acute, significant cardiovascular disease. OSSEOUS STRUCTURES: No significant abnormalities. VISUALIZED UPPER ABDOMEN: Normal. OTHER FINDINGS: None. IMPRESSION: No active disease. No significant interval change compared to the prior examination(s).
[2017-12-08] MEDS: Aztreonam 1 GM in Sodium Chloride 0.9% 100 ML IVPB SCH (01:59)
[2017-12-08] MEDS: metroNIDAZOLE 500mg/100ml NS 100 ML IVPB SCH ×3 (06:04→21:08)
[2017-12-08] MEDS: Insulin Regular 100 units/ml SC SCH ×3 (06:45→21:35)
[2017-12-08] MEDS ORDERED: cefOXitin IV 1 gm in Dextrose 0 GM/0 ML BAG IVPB ONE (07:13)
[2017-12-08] MEDS ORDERED: Midazolam 2 MG/2 ML VIAL ONE (07:17)
[2017-12-08] MEDS ORDERED: Rocuronium 10 mg/ml (5 ml) ONE (07:17)
[2017-12-08] MEDS ORDERED: Propofol 10 mg/ml Inj (20 ML) ONE (07:17)
[2017-12-08] MEDS ORDERED: ePHEDrine 50 mg/ml Inj ONE (07:17)
[2017-12-08] MEDS ORDERED: Succinylcholine 200 mg/10 ml Inj IV ONE (07:17)
[2017-12-08] MEDS ORDERED: Neostigmine Methylsulfate 3mg/3ml Syringe IV ONE (07:33)
[2017-12-08] MEDS ORDERED: Phenylephrine 10 mg/ml Inj ONE (07:34)
[2017-12-08] MEDS ORDERED: Lactated Ringer's 1,000 ML IV ONE ×2 (08:14→09:30)
[2017-12-08] MEDS ORDERED: Sodium Chloride 0.9% 1,000 ML IV ONE (08:20)
--- NOTE | 2017-12-08 08:26 | CP.PCM.PN ---
Subjective - Date & Time of Evaluation Date of Evaluation: 12/08/17 Time of Evaluation: 07:30 - Subjective Subjective: Patient seen and examined at bedside with Dr. Young. Patient NPO since last night for obgyn procedure this AM. Reports abdominal pain controlled with medication. Denies fevers, chills, weakness, dizziness or chest pain. Objective - Vital Signs/Intake and Output Vital Signs (last 24 hours): Temp Pulse Resp BP Pulse Ox 98.2 F 77 18 116/68 98 12/08/17 00:33 12/08/17 00:33 12/08/17 00:33 12/08/17 00:33 12/08/17 00:33 - Medications Medications: Current Medications Alprazolam (Xanax) 1 mg PO DAILY [facility] Last Admin: 12/07/17 08:32 Dose: 1 mg Dextrose (Dextrose 50% Inj) 0 ml IV STAT PRN; Protocol PRN Reason: Hypoglycemia Protocol Dextrose (Glutose 15) 0 gm PO ONCE PRN; Protocol PRN Reason: Hypoglycemia Protocol Docusate Sodium (Colace) 100 mg PO BID [facility] Last Admin: 12/07/17 16:23 Dose: 100 mg Enoxaparin Sodium (Lovenox) 40 mg SC DAILY [facility] PRN Reason: Protocol Last Admin: 12/07/17 08:42 Dose: 40 mg Glucagon (Glucagen Diagnostic Kit) 0 mg IM STAT PRN; Protocol PRN Reason: Hypoglycemia Protocol Hydromorphone HCl (Dilaudid) 1 mg IVP Q4 PRN PRN Reason: Pain, moderate (4-7) Last Admin: 12/07/17 19:38 Dose: 1 mg Metronidazole (Flagyl 500mg/100ml Ns) 100 mls @ 100 mls/hr IVPB Q8@0600,1400, 2200 [facility] PRN Reason: Protocol Last Admin: 12/08/17 06:04 Dose: 100 mls/hr Aztreonam 1 gm/ Sodium (Chloride) 100 mls @ 100 mls/hr IVPB Q8 [facility] PRN Reason: Protocol Last Admin: 12/08/17 01:59 Dose: 100 mls/hr Insulin Human Regular (Humulin R) 0 units SC ACHS [facility] PRN Reason: Protocol Last Admin: 12/08/17 06:45 Dose: Not Given Ondansetron HCl (Zofran Inj) 4 mg IVP Q4 PRN PRN Reason: Nausea/Vomiting Last Admin: 12/06/17 05:22 Dose: 4 mg Pantoprazole Sodium (Protonix Inj) 40 mg IVP BID [facility] Last Admin: 12/07/17 16:23 Dose: 40 mg Sucralfate (Carafate Oral Susp) 1 gm PO DAILY [facility] Last Admin: 12/07/17 08:42 Dose: 1 gm - Labs Labs: 12/05/17 10:24 12/05/17 10:24 PT 13.5 Seconds (9.8-13.1) H 12/03/17 23:54 INR 1.2 (0.9-1.2) 12/03/17 23:54 APTT 26.6 Seconds (25.6-37.1) 12/03/17 23:54 - Constitutional Appears: No Acute Distress - Head Exam Head Exam: ATRAUMATIC, NORMOCEPHALIC - Eye Exam Eye Exam: EOMI - ENT Exam ENT Exam: Mucous Membranes Moist - Neck Exam Neck Exam: Full ROM - Respiratory Exam Respiratory Exam: Clear to Ausculation Bilateral, NORMAL BREATHING PATTERN - Cardiovascular Exam Cardiovascular Exam: REGULAR RHYTHM, +S1, +S2 - GI/Abdominal Exam GI & Abdominal Exam: Soft, Tenderness (moderate lower pelvic to palpation), Normal Bowel Sounds - Extremities Exam Extremities Exam: Full ROM. absent: Calf Tenderness, Pedal Edema - Neurological Exam Neurological Exam: Alert, Awake, CN II-XII Intact, Oriented x3 - Psychiatric Exam Psychiatric exam: Normal Affect, Normal Mood - Skin Skin Exam: Dry, Warm Assessment and Plan - Assessment and Plan (Free Text) Assessment: 61 yr old F admitted for abdominal pain. Pelvic MRI shows suspected left tubo- ovarian abscess, neoplasm less likely. Obgyn on board, patient is medically stable for OR today. -Pelvic MRI: supected left tubo-ovarian abscess, neoplasm less likely, Ca-125 elevated at 223 -Obgyn consult appreciated: plan for OR today -ID on consult: will follow recommendations -continue with present management: IV antibiotics, regular diet until midnight -GI consult appreciated -Surgery consulted: will follow recommendations
[2017-12-08 08:49] LABS: MEAN CELL VOLUME 80.6 fl (81.0-99.0); MEAN CORPUSCULAR HEMOGLOBIN 25.8 pg (27.0-31.0); RBC 4.24 Mil/uL (3.80-5.20); RED CELL DISTRIBUTION WIDTH 15.2 % (11.5-14.5); WHITE BLOOD COUNT 9.5 K/uL (4.8-10.8)
[2017-12-08] MEDS ORDERED: HYDROmorphone 0.5 mg/0.5 ml ISec ONE (10:22)
[2017-12-08] MEDS: HYDROmorphone 0.5 mg/0.5 ml ISec IVP PRN ×5 (10:33→20:51)
--- NOTE | 2017-12-08 10:48 | OP ---
PROCEDURE DATE: PREOPERATIVE DIAGNOSIS: Left tubo-ovarian abscess. POSTOPERATIVE DIAGNOSIS: Left tubo-ovarian abscess. PROCEDURE: Exploratory laparotomy, lysis of adhesions. SURGEON: Gonzalo Marie MD. RELEASE AND TECHNICAL RECORDS CLERK: Keshawn Bains MD. TYPE OF ANESTHESIA: General endotracheal intubation. INTRAOPERATIVE FINDINGS: Left tubo-ovarian abscess. IV FLUID INTAKE: Crystalloids. ESTIMATED BLOOD LOSS: 50 mL. SPECIMEN: Left ovary and fallopian tube. BRIEF HISTORY: Mrs. Eason is a very pleasant 61-year-old female who came to the hospital complaining of lower abdominal pain and upon further investigation in an MRI of the pelvis, the patient was found to have a tubo-ovarian abscess. General Surgery was involved with the gynecological team to free up the ovary from the sigmoid colon. All the risks and benefits of the procedure were explained to the patient and after Dr. Bains obtained the informed consent from the patient, the patient was taken to the operating room for above-stated procedure. DESCRIPTION OF PROCEDURE: The patient was brought into the operating room, placed supine on the operating table. Bilateral Flowtron boots were applied to the patient's lower extremities. After successful induction of anesthesia and successful endotracheal intubation by the Anesthesia team, North catheter was inserted into the patient's urinary bladder. Subsequent to that the patient's abdomen was prepped with ChloraPrep stick and draped in the standard surgical fashion. Prior to the beginning of the procedure, time-out was called in the room and everyone in the room were in agreement. Using a 10-blade scalpel knife, approximately 15-cm incision was made in the lower abdomen in a transverse fashion through the prior abdominoplasty incision. Subsequent to that, dissection was carried down with electrical cautery until the fascial layer was visualized. The fascial layer was transected with electrical cautery and it was opened up for the entire length of the incision. At this point in time, the rectus muscle was encountered. The rectus muscle was and at this point in time, using 2 Porsha clamps with blunt dissection, peritoneum was encountered. It was clamped with 2 Porsha clamps and transected with Metzenbaum scissors. At this point in time, the patient's abdominal cavity was entered. Once this was accomplished, Velpro retractor was introduced into the patient's abdomen and a bladder blade was placed in order to get some traction. After packing small bowel out of the way, we were able to get to the left adnexal area. There appeared to be a hard mass that was adherent to the sigmoid colon. The ovary and the tube were dissected from the sigmoid colon with sharp dissection with Metzenbaum scissors as well as blunt dissection with the finger. Once this was accomplished and the ovary was freed up, Dr. Bains took over the case and his part of the procedure will be dictated separately. At that point in time, General Surgery part of the procedure was done and the rest of the case was handled by the NURSE EXTERN team. Gonzalo Marie MD MTDD
[2017-12-08 11:08] LABS: HEMOGLOBIN 10.7 g/dL (12.0-16.0); MEAN CELL VOLUME 81.5 fl (81.0-99.0); MEAN CORPUSCULAR HEMOGLOBIN 25.7 pg (27.0-31.0); MEAN CORPUSCULAR HGB CONC 31.5 g/dL (33.0-37.0); RBC 4.16 Mil/uL (3.80-5.20); RED CELL DISTRIBUTION WIDTH 15.6 % (11.5-14.5); WHITE BLOOD COUNT 19.9 K/uL (4.8-10.8)
--- NOTE | 2017-12-08 11:26 | PCM.SURG1 ---
Surgeon's Initial Post Op Note - Surgeon's Notes Surgeon: Frank Traffic Control Flagger: Catracho Type of Anesthesia: General Endo Anesthesia Administered By: General Pre-Operative Diagnosis: Tubo-ovarian abscess Operative Findings: Tubo-ovarian abscess, intra-abdominal adhesions Post-Operative Diagnosis: Same Operation Performed: Exploratory Laparotomy, Lysis of adhesions Specimen/Specimens Removed: left salphingoophorectomy Estimated Blood Loss: EBL {In ML}: 50 Blood Products Given: N/A Drains Used: No Drains Post-Op Condition: Good Date of Surgery/Procedure: 12/08/17 Time of Surgery/Procedure: 10:00
[2017-12-08] MEDS ORDERED: HYDROmorphone 0.5 mg/0.5 ml ISec IVP PRN (11:52)
--- NOTE | 2017-12-08 14:42 | CP.PCM.PN ---
Subjective - Date & Time of Evaluation Date of Evaluation: 12/08/17 Time of Evaluation: 07:00 - Subjective Subjective: findings noted cont rx for PID with abscess ( tuboovarian) Objective - Vital Signs/Intake and Output Vital Signs (last 24 hours): Temp Pulse Resp BP Pulse Ox 97.9 F 64 18 99/62 L 99 12/08/17 14:00 12/08/17 14:00 12/08/17 14:00 12/08/17 14:00 12/08/17 14:00 Intake and Output: 12/08/17 12/08/17 06:59 18:59 Intake Total 2400 Output Total 250 Balance 2150 - Medications Medications: Current Medications Alprazolam (Xanax) 1 mg PO DAILY [facility] Last Admin: 12/07/17 08:32 Dose: 1 mg Dextrose (Dextrose 50% Inj) 0 ml IV STAT PRN; Protocol PRN Reason: Hypoglycemia Protocol Dextrose (Glutose 15) 0 gm PO ONCE PRN; Protocol PRN Reason: Hypoglycemia Protocol Docusate Sodium (Colace) 100 mg PO BID [facility] Last Admin: 12/07/17 16:23 Dose: 100 mg Enoxaparin Sodium (Lovenox) 40 mg SC DAILY [facility] PRN Reason: Protocol Last Admin: 12/07/17 08:42 Dose: 40 mg Glucagon (Glucagen Diagnostic Kit) 0 mg IM STAT PRN; Protocol PRN Reason: Hypoglycemia Protocol Hydromorphone HCl (Dilaudid) 1 mg IVP Q4 PRN PRN Reason: Pain, moderate (4-7) Last Admin: 12/07/17 19:38 Dose: 1 mg Metronidazole (Flagyl 500mg/100ml Ns) 100 mls @ 100 mls/hr IVPB Q8@0600,1400, 2200 [facility] PRN Reason: Protocol Last Admin: 12/08/17 14:35 Dose: 100 mls/hr Ceftriaxone Sodium 1 gm/ (Sodium Chloride) 100 mls @ 100 mls/hr IVPB DAILY [facility] PRN Reason: Protocol Last Admin: 12/08/17 14:37 Dose: 100 mls/hr Lactated Ringer's (Lactated Ringer's) 1,000 mls @ 100 mls/hr IV .Q10H [facility] Insulin Human Regular (Humulin R) 0 units SC ACHS [facility] PRN Reason: Protocol Last Admin: 12/08/17 06:45 Dose: Not Given Ketorolac Tromethamine (Toradol) 30 mg IVP ONCE PRN PRN Reason: Pain, moderate (4-7) Last Admin: 12/08/17 11:09 Dose: 30 mg Ketorolac Tromethamine (Toradol) 30 mg IVP Q6 [facility] Stop: 12/09/17 12:32 Ondansetron HCl (Zofran Inj) 4 mg IVP Q4 PRN PRN Reason: Nausea/Vomiting Last Admin: 12/06/17 05:22 Dose: 4 mg Pantoprazole Sodium (Protonix Inj) 40 mg IVP BID [facility] Last Admin: 12/08/17 09:00 Dose: Not Given Sucralfate (Carafate Oral Susp) 1 gm PO DAILY [facility] Last Admin: 12/07/17 08:42 Dose: 1 gm - Labs Labs: 12/08/17 10:59 12/05/17 10:24 PT 13.5 Seconds (9.8-13.1) H 12/03/17 23:54 INR 1.2 (0.9-1.2) 12/03/17 23:54 APTT 26.6 Seconds (25.6-37.1) 12/03/17 23:54 - Constitutional Appears: Non-toxic, Chronically Ill - Eye Exam Eye Exam: PERRL - ENT Exam ENT Exam: Mucous Membranes Dry - Neck Exam Neck Exam: absent: Lymphadenopathy - Respiratory Exam Respiratory Exam: Decreased Breath Sounds - Cardiovascular Exam Cardiovascular Exam: REGULAR RHYTHM - GI/Abdominal Exam GI & Abdominal Exam: Distended - Rectal Exam Rectal Exam: Deferred - Exam Exam: NORMAL INSPECTION Assessment and Plan (1) Adnexal mass Status: Acute (2) Pelvic pain Status: Acute (3) Weight loss Status: Acute (4) Acute gastritis Status: Acute
[2017-12-08] MEDS ORDERED: cefTRIAXone 2 GM in Sodium Chloride 0.9% 100 ML IVPB SCH (14:52)
[2017-12-08] MEDS: cefTRIAXone 2 GM in Sodium Chloride 0.9% 100 ML IVPB SCH (17:22)
--- NOTE | 2017-12-08 18:15 | CARD ---
APPROVED REPORT EKG Measurement Heart [id number] <Conclusion> Normal sinus rhythm Left axis deviation Voltage criteria for left ventricular hypertrophy Abnormal ECG
[2017-12-08] MEDS: Lactated Ringer's 1,000 ML IV SCH (23:35)
--- NOTE | 2017-12-09 01:42 | CP.PCM.PN ---
Subjective - Date & Time of Evaluation Date of Evaluation: 12/09/17 Time of Evaluation: 01:40 - Subjective Subjective: General Surgery: Dr Marie Pt S&E. POD#1 s/p exploratory laparotomy with unilateral salpingoopherectomy w / OBGYN. Pt remains NPO at this time. North in place. Making adequate urine. Using incentive spirometer. Pain well controlled with medication. Objective - Vital Signs/Intake and Output Vital Signs (last 24 hours): Temp Pulse Resp BP Pulse Ox 99.7 F H 98 H 17 102/68 96 12/08/17 23:40 12/08/17 23:40 12/08/17 23:40 12/08/17 23:40 12/08/17 23:40 Intake and Output: 12/08/17 12/09/17 18:59 06:59 Intake Total 2400 Output Total 250 Balance 2150 - Medications Medications: Current Medications Alprazolam (Xanax) 1 mg PO DAILY [facility] Last Admin: 12/07/17 08:32 Dose: 1 mg Dextrose (Dextrose 50% Inj) 0 ml IV STAT PRN; Protocol PRN Reason: Hypoglycemia Protocol Dextrose (Glutose 15) 0 gm PO ONCE PRN; Protocol PRN Reason: Hypoglycemia Protocol Docusate Sodium (Colace) 100 mg PO BID [facility] Last Admin: 12/08/17 16:44 Dose: Not Given Enoxaparin Sodium (Lovenox) 40 mg SC DAILY [facility] PRN Reason: Protocol Last Admin: 12/07/17 08:42 Dose: 40 mg Glucagon (Glucagen Diagnostic Kit) 0 mg IM STAT PRN; Protocol PRN Reason: Hypoglycemia Protocol Hydromorphone HCl (Dilaudid) 1 mg IVP Q4 PRN PRN Reason: Pain, moderate (4-7) Last Admin: 12/08/17 20:51 Dose: 1 mg Metronidazole (Flagyl 500mg/100ml Ns) 100 mls @ 100 mls/hr IVPB Q8@0600,1400, 2200 [facility] PRN Reason: Protocol Last Admin: 12/08/17 21:08 Dose: 100 mls/hr Lactated Ringer's (Lactated Ringer's) 1,000 mls @ 100 mls/hr IV .Q10H [facility] Ceftriaxone Sodium 2 gm/ (Sodium Chloride) 100 mls @ 100 mls/hr IVPB DAILY [facility] PRN Reason: Protocol Last Admin: 12/08/17 17:22 Dose: 100 mls/hr Insulin Human Regular (Humulin R) 0 units SC ACHS [facility] PRN Reason: Protocol Last Admin: 12/08/17 21:35 Dose: Not Given Ketorolac Tromethamine (Toradol) 30 mg IVP ONCE PRN PRN Reason: Pain, moderate (4-7) Last Admin: 12/08/17 11:09 Dose: 30 mg Ketorolac Tromethamine (Toradol) 30 mg IVP 0500,1100,1700,2300 [facility] Last Admin: 12/08/17 23:22 Dose: 30 mg Ondansetron HCl (Zofran Inj) 4 mg IVP Q4 PRN PRN Reason: Nausea/Vomiting Last Admin: 12/06/17 05:22 Dose: 4 mg Pantoprazole Sodium (Protonix Inj) 40 mg IVP BID [facility] Last Admin: 12/08/17 16:46 Dose: 40 mg Sucralfate (Carafate Oral Susp) 1 gm PO DAILY [facility] Last Admin: 12/07/17 08:42 Dose: 1 gm - Labs Labs: 12/08/17 10:59 12/05/17 10:24 PT 13.5 Seconds (9.8-13.1) H 12/03/17 23:54 INR 1.2 (0.9-1.2) 12/03/17 23:54 APTT 26.6 Seconds (25.6-37.1) 12/03/17 23:54 - Constitutional Appears: Non-toxic, No Acute Distress - ENT Exam ENT Exam: Mucous Membranes Moist - Respiratory Exam Respiratory Exam: NORMAL BREATHING PATTERN. absent: Accessory Muscle Use, Respiratory Distress - Cardiovascular Exam Cardiovascular Exam: REGULAR RHYTHM. absent: Tachycardia - GI/Abdominal Exam GI & Abdominal Exam: Soft, Tenderness (post-op and appropriate). absent: Distended, Firm, Guarding Additional comments: midline dressing c/d/i - Neurological Exam Neurological Exam: Alert, Awake, Oriented x3 - Psychiatric Exam Psychiatric exam: Normal Affect - Skin Skin Exam: Normal Color, Warm Assessment and Plan - Assessment and Plan (Free Text) Assessment: 62F POD#1 s/p exploratory laparotomy w/ left salpingo-oopherectomy Plan: pt doing well post-operatively further mgmt per gynecology service surgery will sign off now, please reconsult as necessary will d/w Dr Frank Caraballo, PGY3
[2017-12-09] MEDS: metroNIDAZOLE 500mg/100ml NS 100 ML IVPB SCH ×3 (05:46→21:11)
[2017-12-09 07:48] LABS: BASO % 0.2 % (0.0-2.0); EOS % 0.1 % (0.0-4.0); LYMPH # 0.8 K/uL (1.0-4.3); LYMPH % 6.5 % (20.0-40.0); MEAN CELL VOLUME 81.3 fl (81.0-99.0); MEAN CORPUSCULAR HEMOGLOBIN 25.6 pg (27.0-31.0); MEAN CORPUSCULAR HGB CONC 31.5 g/dL (33.0-37.0); MEAN PLATELET VOLUME 8.1 fl (7.2-11.7); MONO # 0.6 K/uL (0.0-0.8); MONO % 5.1 % (0.0-10.0); NEUT # 11.1 K/uL (1.8-7.0); NEUT % 88.1 % (50.0-75.0); PLATELET COUNT 229 K/uL (130-400); RBC 3.52 Mil/uL (3.80-5.20); RED CELL DISTRIBUTION WIDTH 15.5 % (11.5-14.5); WHITE BLOOD COUNT 12.6 K/uL (4.8-10.8)
[2017-12-09] MEDS: Insulin Regular 100 units/ml SC SCH ×4 (08:08→22:46)
[2017-12-09 08:09] LABS: ALB/GLOB RATIO 0.9 (1.0-2.1); ALBUMIN 2.6 g/dL (3.5-5.0); ALT/SGPT 46 U/L (9-52); AST/SGOT 43 U/L (14-36); BLOOD UREA NITROGEN 11 mg/dl (7-17); CALCIUM 8.7 mg/dL (8.4-10.2); GFR AFRICAN-AMERICAN > 60; GFR NON-AFRICAN AMERICAN > 60
[2017-12-09] MEDS: Sucralfate 1 gm/10 ml Oral Susp UD PO SCH (10:46)
[2017-12-09] MEDS: cefTRIAXone 2 GM in Sodium Chloride 0.9% 100 ML IVPB SCH (10:49)
[2017-12-09 12:14] LABS: EOSINOPHIL 12 % (0-7); LYMPHOCYTE 11 % (20-50); MONOCYTE 2 % (0-10); NEUTROPHIL 75 % (42-75); PLATELET ESTIMATE NORMAL (NORMAL); TOTAL CELLS COUNTED 100
[2017-12-09 12:15] LABS: ANISOCYTOSIS SLIGHT
[2017-12-09 12:16] LABS: HYPOCHROMIC SLIGHT
[2017-12-09 12:18] LABS: PLATELET CLUMPS PRESENT; SPHEROCYTES SLIGHT
--- NOTE | 2017-12-09 12:53 | CP.PCM.PN ---
Subjective - Date & Time of Evaluation Date of Evaluation: 12/09/17 Time of Evaluation: 12:51 - Subjective Subjective: feels better today Objective - Vital Signs/Intake and Output Vital Signs (last 24 hours): Temp Pulse Resp BP Pulse Ox 98.5 F 93 H 20 128/64 98 12/09/17 08:14 12/09/17 08:14 12/09/17 08:14 12/09/17 08:14 12/09/17 08:14 Intake and Output: 12/09/17 12/09/17 06:59 18:59 Intake Total 1200 Output Total 500 Balance 700 - Medications Medications: Current Medications Alprazolam (Xanax) 1 mg PO DAILY [facility] Last Admin: 12/09/17 10:58 Dose: 1 mg Dextrose (Dextrose 50% Inj) 0 ml IV STAT PRN; Protocol PRN Reason: Hypoglycemia Protocol Dextrose (Glutose 15) 0 gm PO ONCE PRN; Protocol PRN Reason: Hypoglycemia Protocol Docusate Sodium (Colace) 100 mg PO BID [facility] Last Admin: 12/09/17 10:47 Dose: 100 mg Enoxaparin Sodium (Lovenox) 40 mg SC DAILY [facility] PRN Reason: Protocol Last Admin: 12/07/17 08:42 Dose: 40 mg Glucagon (Glucagen Diagnostic Kit) 0 mg IM STAT PRN; Protocol PRN Reason: Hypoglycemia Protocol Hydromorphone HCl (Dilaudid) 1 mg IVP Q4 PRN PRN Reason: Pain, moderate (4-7) Last Admin: 12/09/17 08:03 Dose: 1 mg Metronidazole (Flagyl 500mg/100ml Ns) 100 mls @ 100 mls/hr IVPB Q8@0600,1400, 2200 [facility] PRN Reason: Protocol Last Admin: 12/09/17 05:46 Dose: 100 mls/hr Lactated Ringer's (Lactated Ringer's) 1,000 mls @ 100 mls/hr IV .Q10H [facility] Last Admin: 12/08/17 23:35 Dose: 100 mls/hr Ceftriaxone Sodium 2 gm/ (Sodium Chloride) 100 mls @ 100 mls/hr IVPB DAILY [facility] PRN Reason: Protocol Last Admin: 12/09/17 10:49 Dose: 100 mls/hr Insulin Human Regular (Humulin R) 0 units SC ACHS [facility] PRN Reason: Protocol Last Admin: 12/09/17 10:56 Dose: Not Given Ketorolac Tromethamine (Toradol) 30 mg IVP ONCE PRN PRN Reason: Pain, moderate (4-7) Last Admin: 12/08/17 11:09 Dose: 30 mg Ketorolac Tromethamine (Toradol) 30 mg IVP 0500,1100,1700,2300 [facility] Last Admin: 12/09/17 10:57 Dose: 30 mg Ondansetron HCl (Zofran Inj) 4 mg IVP Q4 PRN PRN Reason: Nausea/Vomiting Last Admin: 12/06/17 05:22 Dose: 4 mg Pantoprazole Sodium (Protonix Inj) 40 mg IVP BID [facility] Last Admin: 12/09/17 10:48 Dose: 40 mg Sucralfate (Carafate Oral Susp) 1 gm PO DAILY [facility] Last Admin: 12/09/17 10:46 Dose: 1 gm - Labs Labs: 12/09/17 05:25 12/09/17 05:25 PT 13.5 Seconds (9.8-13.1) H 12/03/17 23:54 INR 1.2 (0.9-1.2) 12/03/17 23:54 APTT 26.6 Seconds (25.6-37.1) 12/03/17 23:54 - Additional Findings Additional findings: v.s stable afebrile dressing clean Assessment and Plan - Assessment and Plan (Free Text) Assessment: stable pod1 s/p salpingooophorectomy Plan: stable pod1 s/p laparotomy and left salpiongooophorectomy
--- NOTE | 2017-12-09 13:17 | CP.PCM.PN ---
Subjective - Date & Time of Evaluation Date of Evaluation: 12/09/17 Time of Evaluation: 13:16 - Subjective Subjective: Patient feels a lot better. Still with some pain i the lower ab Has no fever. Objective - Vital Signs/Intake and Output Vital Signs (last 24 hours): Temp Pulse Resp BP Pulse Ox 98.5 F 93 H 20 128/64 98 12/09/17 08:14 12/09/17 08:14 12/09/17 08:14 12/09/17 08:14 12/09/17 08:14 Intake and Output: 12/09/17 12/09/17 06:59 18:59 Intake Total 1200 Output Total 500 Balance 700 - Medications Medications: Current Medications Alprazolam (Xanax) 1 mg PO DAILY [facility] Last Admin: 12/09/17 10:58 Dose: 1 mg Dextrose (Dextrose 50% Inj) 0 ml IV STAT PRN; Protocol PRN Reason: Hypoglycemia Protocol Dextrose (Glutose 15) 0 gm PO ONCE PRN; Protocol PRN Reason: Hypoglycemia Protocol Docusate Sodium (Colace) 100 mg PO BID [facility] Last Admin: 12/09/17 10:47 Dose: 100 mg Enoxaparin Sodium (Lovenox) 40 mg SC DAILY [facility] PRN Reason: Protocol Last Admin: 12/07/17 08:42 Dose: 40 mg Glucagon (Glucagen Diagnostic Kit) 0 mg IM STAT PRN; Protocol PRN Reason: Hypoglycemia Protocol Hydromorphone HCl (Dilaudid) 1 mg IVP Q4 PRN PRN Reason: Pain, moderate (4-7) Last Admin: 12/09/17 08:03 Dose: 1 mg Metronidazole (Flagyl 500mg/100ml Ns) 100 mls @ 100 mls/hr IVPB Q8@0600,1400, 2200 [facility] PRN Reason: Protocol Last Admin: 12/09/17 05:46 Dose: 100 mls/hr Lactated Ringer's (Lactated Ringer's) 1,000 mls @ 100 mls/hr IV .Q10H [facility] Last Admin: 12/08/17 23:35 Dose: 100 mls/hr Ceftriaxone Sodium 2 gm/ (Sodium Chloride) 100 mls @ 100 mls/hr IVPB DAILY [facility] PRN Reason: Protocol Last Admin: 12/09/17 10:49 Dose: 100 mls/hr Insulin Human Regular (Humulin R) 0 units SC ACHS [facility] PRN Reason: Protocol Last Admin: 12/09/17 10:56 Dose: Not Given Ketorolac Tromethamine (Toradol) 30 mg IVP ONCE PRN PRN Reason: Pain, moderate (4-7) Last Admin: 12/08/17 11:09 Dose: 30 mg Ketorolac Tromethamine (Toradol) 30 mg IVP 0500,1100,1700,2300 [facility] Last Admin: 12/09/17 10:57 Dose: 30 mg Ondansetron HCl (Zofran Inj) 4 mg IVP Q4 PRN PRN Reason: Nausea/Vomiting Last Admin: 12/06/17 05:22 Dose: 4 mg Pantoprazole Sodium (Protonix Inj) 40 mg IVP BID [facility] Last Admin: 12/09/17 10:48 Dose: 40 mg Sucralfate (Carafate Oral Susp) 1 gm PO DAILY [facility] Last Admin: 12/09/17 10:46 Dose: 1 gm - Labs Labs: 12/09/17 05:25 12/09/17 05:25 PT 13.5 Seconds (9.8-13.1) H 12/03/17 23:54 INR 1.2 (0.9-1.2) 12/03/17 23:54 APTT 26.6 Seconds (25.6-37.1) 12/03/17 23:54 Assessment and Plan (1) Adnexal mass Status: Acute (2) Weight loss Status: Acute (3) Pelvic pain Status: Acute
--- NOTE | 2017-12-10 02:38 | OP ---
DATE: 12/08/2017 SURGEONS: Dr. Keshawn Bains and Dr. Gonzalo Mraie. Later on Dr. Keshawn Bains and Dr. Michael Casey. ANESTHESIA ADMINISTERED BY: TYPE OF ANESTHESIA: General anesthesia. PREOPERATIVE DIAGNOSES: Pelvic abdominal pain and left adnexal mass. POSTOPERATIVE DIAGNOSES: Abdominal adhesions and left tubo-ovarian abscess. PROCEDURE: Laparotomy with left salpingo-oophorectomy and lysis of adhesions. DESCRIPTION OF PROCEDURE: With the patient in the supine position under general anesthesia, patient was prepped and draped in the usual sterile manner. Dr. Marie was there initially to help in the preparation of the surgery. After that was done, a Pfannenstiel incision was made in the abdomen and taken down through the fascia in layers. Fascia was incised and extended bilaterally. Fascia was from the muscle with sharp and blunt dissection. After this was done, the peritoneum was grasped and abdomen was opened. The left tubo-ovarian abscess was found. After much dissection, it was removed, and the hemostasis was maintained. After this was done, Dr. Marie left because the bowel was secured and there was no problems with the bowel. Dr. Casey joined me and he assisted in the second half of the surgery after Dr. Marie. We secured the left adnexal making sure that there was no bleeding. Following this, he used Surgicel to help prevent any bleeding. After this was done, the pelvic cavity was irrigated until clean. The peritoneum was grasped and closed with [address] Casey was assisting from that on. The muscles were closed with 1 Vicryl and the fascia was closed with 1 Vicryl running interlocking stitch, starting at each end and finishing in the midline, with Dr. Casey doing his half and I am doing my half, maintaining hemostasis. The subcutaneous layer was closed with 2-0 plain. After this was done, the skin was closed with surgical clips, maintaining hemostasis. The patient tolerated the procedure well and was in satisfactory condition on the way to recovery room. Blood loss was 500 mL. Keshawn Bains MD
[2017-12-10] MEDS: metroNIDAZOLE 500mg/100ml NS 100 ML IVPB SCH ×3 (05:07→21:53)
[2017-12-10] MEDS: Lactated Ringer's 1,000 ML IV SCH (05:22)
[2017-12-10] MEDS: Insulin Regular 100 units/ml SC SCH ×4 (06:37→21:58)
[2017-12-10] MEDS: Sucralfate 1 gm/10 ml Oral Susp UD PO SCH (08:57)
[2017-12-10] MEDS: cefTRIAXone 2 GM in Sodium Chloride 0.9% 100 ML IVPB SCH (08:58)
--- NOTE | 2017-12-10 12:08 | CP.PCM.PN ---
Subjective - Date & Time of Evaluation Date of Evaluation: 12/10/17 Time of Evaluation: 12:05 - Subjective Subjective: Denies nausea and vomiting No Chills or fever Some incisional pain Objective - Vital Signs/Intake and Output Vital Signs (last 24 hours): Temp Pulse Resp BP Pulse Ox 98.3 F 78 20 106/65 99 12/10/17 08:16 12/10/17 08:16 12/10/17 08:16 12/10/17 08:16 12/10/17 08:16 Intake and Output: 12/10/17 12/10/17 06:59 18:59 Intake Total 100 Balance 100 - Medications Medications: Current Medications Alprazolam (Xanax) 1 mg PO DAILY [facility] Last Admin: 12/10/17 09:09 Dose: 1 mg Dextrose (Dextrose 50% Inj) 0 ml IV STAT PRN; Protocol PRN Reason: Hypoglycemia Protocol Dextrose (Glutose 15) 0 gm PO ONCE PRN; Protocol PRN Reason: Hypoglycemia Protocol Docusate Sodium (Colace) 100 mg PO BID [facility] Last Admin: 12/10/17 08:57 Dose: 100 mg Enoxaparin Sodium (Lovenox) 40 mg SC DAILY [facility] PRN Reason: Protocol Last Admin: 12/07/17 08:42 Dose: 40 mg Ferrous Sulfate (Feosol) 325 mg PO BID [facility] Glucagon (Glucagen Diagnostic Kit) 0 mg IM STAT PRN; Protocol PRN Reason: Hypoglycemia Protocol Hydromorphone HCl (Dilaudid) 1 mg IVP Q4 PRN PRN Reason: Pain, moderate (4-7) Last Admin: 12/09/17 19:37 Dose: 1 mg Metronidazole (Flagyl 500mg/100ml Ns) 100 mls @ 100 mls/hr IVPB Q8@0600,1400, 2200 [facility] PRN Reason: Protocol Last Admin: 12/10/17 05:07 Dose: 100 mls/hr Lactated Ringer's (Lactated Ringer's) 1,000 mls @ 100 mls/hr IV .Q10H [facility] Last Admin: 12/10/17 05:22 Dose: Not Given Ceftriaxone Sodium 2 gm/ (Sodium Chloride) 100 mls @ 100 mls/hr IVPB DAILY [facility] PRN Reason: Protocol Last Admin: 12/10/17 08:58 Dose: 100 mls/hr Insulin Human Regular (Humulin R) 0 units SC ACHS [facility] PRN Reason: Protocol Last Admin: 12/10/17 06:37 Dose: Not Given Ketorolac Tromethamine (Toradol) 30 mg IVP ONCE PRN PRN Reason: Pain, moderate (4-7) Last Admin: 12/08/17 11:09 Dose: 30 mg Ketorolac Tromethamine (Toradol) 30 mg IVP 0500,1100,1700,2300 [facility] Last Admin: 12/10/17 05:06 Dose: 30 mg Ondansetron HCl (Zofran Inj) 4 mg IVP Q4 PRN PRN Reason: Nausea/Vomiting Last Admin: 12/06/17 05:22 Dose: 4 mg Pantoprazole Sodium (Protonix Inj) 40 mg IVP BID [facility] Last Admin: 12/10/17 08:59 Dose: 40 mg Sucralfate (Carafate Oral Susp) 1 gm PO DAILY [facility] Last Admin: 12/10/17 08:57 Dose: 1 gm - Labs Labs: 12/09/17 05:25 12/09/17 05:25 PT 13.5 Seconds (9.8-13.1) H 12/03/17 23:54 INR 1.2 (0.9-1.2) 12/03/17 23:54 APTT 26.6 Seconds (25.6-37.1) 12/03/17 23:54 - Constitutional Appears: No Acute Distress - Head Exam Head Exam: ATRAUMATIC - Neck Exam Neck Exam: Full ROM - Respiratory Exam Respiratory Exam: NORMAL BREATHING PATTERN - GI/Abdominal Exam GI & Abdominal Exam: Soft Additional comments: not distended, depressible Dressing intact and removed, jae in place, no active bleeding or discharge. - Extremities Exam Extremities Exam: Full ROM Additional comments: no calf tenderness, no edema - Neurological Exam Neurological Exam: Alert, Awake, Oriented x3 Assessment and Plan - Assessment and Plan (Free Text) Assessment: stabe PO day #2, s/p laparotomy lysis of adhession and left SO for TOA Plan: Start on reg diet as tolerated and FeSO4 Continue antibiotics and po care. OOB and ambulation.
--- NOTE | 2017-12-10 13:17 | CP.PCM.PN ---
Subjective - Date & Time of Evaluation Date of Evaluation: 12/10/17 Time of Evaluation: 06:00 - Subjective Subjective: stabe PO day #2, s/p laparotomy lysis of adhession and left SO for TOA Objective - Vital Signs/Intake and Output Vital Signs (last 24 hours): Temp Pulse Resp BP Pulse Ox 98.3 F 78 20 106/65 99 12/10/17 08:16 12/10/17 08:16 12/10/17 08:16 12/10/17 08:16 12/10/17 08:16 Intake and Output: 12/10/17 12/10/17 06:59 18:59 Intake Total 100 Balance 100 - Medications Medications: Current Medications Alprazolam (Xanax) 1 mg PO DAILY [facility] Last Admin: 12/10/17 09:09 Dose: 1 mg Dextrose (Dextrose 50% Inj) 0 ml IV STAT PRN; Protocol PRN Reason: Hypoglycemia Protocol Dextrose (Glutose 15) 0 gm PO ONCE PRN; Protocol PRN Reason: Hypoglycemia Protocol Docusate Sodium (Colace) 100 mg PO BID [facility] Last Admin: 12/10/17 08:57 Dose: 100 mg Enoxaparin Sodium (Lovenox) 40 mg SC DAILY [facility] PRN Reason: Protocol Last Admin: 12/07/17 08:42 Dose: 40 mg Ferrous Sulfate (Feosol) 325 mg PO BID [facility] Glucagon (Glucagen Diagnostic Kit) 0 mg IM STAT PRN; Protocol PRN Reason: Hypoglycemia Protocol Hydromorphone HCl (Dilaudid) 1 mg IVP Q4 PRN PRN Reason: Pain, moderate (4-7) Last Admin: 12/09/17 19:37 Dose: 1 mg Metronidazole (Flagyl 500mg/100ml Ns) 100 mls @ 100 mls/hr IVPB Q8@0600,1400, 2200 [facility] PRN Reason: Protocol Last Admin: 12/10/17 05:07 Dose: 100 mls/hr Lactated Ringer's (Lactated Ringer's) 1,000 mls @ 100 mls/hr IV .Q10H [facility] Last Admin: 12/10/17 05:22 Dose: Not Given Ceftriaxone Sodium 2 gm/ (Sodium Chloride) 100 mls @ 100 mls/hr IVPB DAILY [facility] PRN Reason: Protocol Last Admin: 12/10/17 08:58 Dose: 100 mls/hr Insulin Human Regular (Humulin R) 0 units SC ACHS [facility] PRN Reason: Protocol Last Admin: 12/10/17 06:37 Dose: Not Given Ketorolac Tromethamine (Toradol) 30 mg IVP ONCE PRN PRN Reason: Pain, moderate (4-7) Last Admin: 12/08/17 11:09 Dose: 30 mg Ketorolac Tromethamine (Toradol) 30 mg IVP 0500,1100,1700,2300 [facility] Last Admin: 12/10/17 05:06 Dose: 30 mg Ondansetron HCl (Zofran Inj) 4 mg IVP Q4 PRN PRN Reason: Nausea/Vomiting Last Admin: 12/06/17 05:22 Dose: 4 mg Pantoprazole Sodium (Protonix Inj) 40 mg IVP BID [facility] Last Admin: 12/10/17 08:59 Dose: 40 mg Sucralfate (Carafate Oral Susp) 1 gm PO DAILY [facility] Last Admin: 12/10/17 08:57 Dose: 1 gm - Labs Labs: 12/09/17 05:25 12/09/17 05:25 PT 13.5 Seconds (9.8-13.1) H 12/03/17 23:54 INR 1.2 (0.9-1.2) 12/03/17 23:54 APTT 26.6 Seconds (25.6-37.1) 12/03/17 23:54 - Constitutional Appears: Non-toxic, Chronically Ill - Head Exam Head Exam: NORMOCEPHALIC - Eye Exam Eye Exam: PERRL - ENT Exam ENT Exam: Mucous Membranes Dry - Neck Exam Neck Exam: absent: Lymphadenopathy - Respiratory Exam Respiratory Exam: Decreased Breath Sounds - Cardiovascular Exam Cardiovascular Exam: REGULAR RHYTHM - GI/Abdominal Exam GI & Abdominal Exam: Distended, Soft - Rectal Exam Rectal Exam: Deferred - Exam Exam: NORMAL INSPECTION - Extremities Exam Extremities Exam: absent: Pedal Edema - Back Exam Back Exam: absent: CVA tenderness (L), CVA tenderness (R) Assessment and Plan (1) Adnexal mass Status: Acute (2) Pelvic pain Status: Acute (3) Weight loss Status: Acute (4) Acute gastritis Status: Acute - Assessment and Plan (Free Text) Assessment: stabe PO day #2, s/p laparotomy lysis of adhession and left SO for TOA cont iv rx / wound care await path report
[2017-12-11] MEDS: metroNIDAZOLE 500mg/100ml NS 100 ML IVPB SCH ×3 (05:24→22:01)
[2017-12-11] MEDS: Insulin Regular 100 units/ml SC SCH ×4 (07:03→22:36)
--- NOTE | 2017-12-11 08:36 | CP.PCM.PN ---
Subjective - Date & Time of Evaluation Date of Evaluation: 12/11/17 Time of Evaluation: 08:34 - Subjective Subjective: patient feels better today patient had bm Objective - Vital Signs/Intake and Output Vital Signs (last 24 hours): Temp Pulse Resp BP Pulse Ox 98.4 F 68 20 147/72 100 12/11/17 08:08 12/11/17 08:08 12/11/17 08:08 12/11/17 08:08 12/11/17 08:08 - Medications Medications: Current Medications Alprazolam (Xanax) 1 mg PO DAILY [facility] Last Admin: 12/10/17 09:09 Dose: 1 mg Dextrose (Dextrose 50% Inj) 0 ml IV STAT PRN; Protocol PRN Reason: Hypoglycemia Protocol Dextrose (Glutose 15) 0 gm PO ONCE PRN; Protocol PRN Reason: Hypoglycemia Protocol Docusate Sodium (Colace) 100 mg PO BID [facility] Last Admin: 12/10/17 17:08 Dose: 100 mg Enoxaparin Sodium (Lovenox) 40 mg SC DAILY [facility] PRN Reason: Protocol Last Admin: 12/07/17 08:42 Dose: 40 mg Ferrous Sulfate (Feosol) 325 mg PO BID [facility] Last Admin: 12/10/17 17:17 Dose: 325 mg Glucagon (Glucagen Diagnostic Kit) 0 mg IM STAT PRN; Protocol PRN Reason: Hypoglycemia Protocol Hydromorphone HCl (Dilaudid) 1 mg IVP Q4 PRN PRN Reason: Pain, moderate (4-7) Last Admin: 12/09/17 19:37 Dose: 1 mg Metronidazole (Flagyl 500mg/100ml Ns) 100 mls @ 100 mls/hr IVPB Q8@0600,1400, 2200 [facility] PRN Reason: Protocol Last Admin: 12/11/17 05:24 Dose: 100 mls/hr Lactated Ringer's (Lactated Ringer's) 1,000 mls @ 100 mls/hr IV .Q10H [facility] Last Admin: 12/10/17 05:22 Dose: Not Given Ceftriaxone Sodium 2 gm/ (Sodium Chloride) 100 mls @ 100 mls/hr IVPB DAILY [facility] PRN Reason: Protocol Last Admin: 12/10/17 08:58 Dose: 100 mls/hr Insulin Human Regular (Humulin R) 0 units SC ACHS [facility] PRN Reason: Protocol Last Admin: 12/11/17 07:03 Dose: Not Given Ketorolac Tromethamine (Toradol) 30 mg IVP ONCE PRN PRN Reason: Pain, moderate (4-7) Last Admin: 12/08/17 11:09 Dose: 30 mg Ketorolac Tromethamine (Toradol) 30 mg IVP 0500,1100,1700,2300 [facility] Last Admin: 12/11/17 05:20 Dose: 30 mg Ondansetron HCl (Zofran Inj) 4 mg IVP Q4 PRN PRN Reason: Nausea/Vomiting Last Admin: 12/06/17 05:22 Dose: 4 mg Pantoprazole Sodium (Protonix Inj) 40 mg IVP BID [facility] Last Admin: 12/10/17 17:09 Dose: 40 mg Sucralfate (Carafate Oral Susp) 1 gm PO DAILY [facility] Last Admin: 12/10/17 08:57 Dose: 1 gm - Labs Labs: 12/09/17 05:25 12/09/17 05:25 PT 13.5 Seconds (9.8-13.1) H 12/03/17 23:54 INR 1.2 (0.9-1.2) 12/03/17 23:54 APTT 26.6 Seconds (25.6-37.1) 12/03/17 23:54 - Eye Exam Additional comments: v.s stsble afebrile bm+ and eating well Assessment and Plan - Assessment and Plan (Free Text) Assessment: stable pod3 s/p left salpingooophorectomy Plan: patient will be discharged in am results on pending will be avaiable ansley
[2017-12-11] MEDS: cefTRIAXone 2 GM in Sodium Chloride 0.9% 100 ML IVPB SCH (08:39)
[2017-12-11] MEDS: Sucralfate 1 gm/10 ml Oral Susp UD PO SCH (08:40)
[2017-12-11 09:37] LABS: BASO % 0.4 % (0.0-2.0); EOS # 0.1 K/uL (0.0-0.7); EOS % 1.1 % (0.0-4.0); HEMOGLOBIN 8.8 g/dL (12.0-16.0); LYMPH # 0.9 K/uL (1.0-4.3); LYMPH % 13.8 % (20.0-40.0); MEAN CELL VOLUME 80.7 fl (81.0-99.0); MEAN CORPUSCULAR HEMOGLOBIN 25.7 pg (27.0-31.0); MEAN CORPUSCULAR HGB CONC 31.9 g/dL (33.0-37.0); MEAN PLATELET VOLUME 7.8 fl (7.2-11.7); MONO # 0.4 K/uL (0.0-0.8); MONO % 6.5 % (0.0-10.0); NEUT % 78.2 % (50.0-75.0); RBC 3.42 Mil/uL (3.80-5.20); RED CELL DISTRIBUTION WIDTH 15.3 % (11.5-14.5); WHITE BLOOD COUNT 6.4 K/uL (4.8-10.8)
[2017-12-11 09:43] LABS: ALBUMIN 2.9 g/dL (3.5-5.0); ALT/SGPT 46 U/L (9-52); AST/SGOT 30 U/L (14-36); BLOOD UREA NITROGEN 9 mg/dl (7-17); CALCIUM 8.7 mg/dL (8.4-10.2); GFR AFRICAN-AMERICAN > 60; GFR NON-AFRICAN AMERICAN > 60
[2017-12-11] MEDS: Pantoprazole 40 mg EC Tab PO SCH (10:54)
[2017-12-11] MEDS ORDERED: Potassium Chloride 20 mEq ER Tab PO ONE ×2 (12:53→17:00)
[2017-12-11] MEDS: Potassium CL 10 MEQ/50 ML 50 ML IVPB SCH ×2 (15:15→16:30)
[2017-12-11] MEDS ORDERED: Enoxaparin 40 mg Syringe SC STA (18:10)
[2017-12-11] MEDS: Lactated Ringer's 1,000 ML IV SCH (21:00)
--- NOTE | 2017-12-11 23:58 | CP.PCM.PN ---
Subjective - Date & Time of Evaluation Date of Evaluation: 12/10/17 Time of Evaluation: 10:40 - Subjective Subjective: Patient feels a lot better Has minimal pain NOted positive C and S. Objective - Vital Signs/Intake and Output Vital Signs (last 24 hours): Temp Pulse Resp BP Pulse Ox 97.6 F 87 20 98/62 L 100 12/11/17 16:15 12/11/17 16:15 12/11/17 16:15 12/11/17 16:15 12/11/17 16:15 - Medications Medications: Current Medications Alprazolam (Xanax) 1 mg PO DAILY [facility] Last Admin: 12/11/17 08:38 Dose: 1 mg Dextrose (Dextrose 50% Inj) 0 ml IV STAT PRN; Protocol PRN Reason: Hypoglycemia Protocol Dextrose (Glutose 15) 0 gm PO ONCE PRN; Protocol PRN Reason: Hypoglycemia Protocol Docusate Sodium (Colace) 100 mg PO BID [facility] Last Admin: 12/11/17 17:05 Dose: 100 mg Enoxaparin Sodium (Lovenox) 40 mg SC DAILY [facility] PRN Reason: Protocol Last Admin: 12/07/17 08:42 Dose: 40 mg Ferrous Sulfate (Feosol) 325 mg PO BID [facility] Last Admin: 12/11/17 17:06 Dose: 325 mg Glucagon (Glucagen Diagnostic Kit) 0 mg IM STAT PRN; Protocol PRN Reason: Hypoglycemia Protocol Metronidazole (Flagyl 500mg/100ml Ns) 100 mls @ 100 mls/hr IVPB Q8@0600,1400, 2200 [facility] PRN Reason: Protocol Last Admin: 12/11/17 22:01 Dose: 100 mls/hr Lactated Ringer's (Lactated Ringer's) 1,000 mls @ 100 mls/hr IV .Q10H [facility] Last Admin: 12/10/17 05:22 Dose: Not Given Ceftriaxone Sodium 2 gm/ (Sodium Chloride) 100 mls @ 100 mls/hr IVPB DAILY [facility] PRN Reason: Protocol Last Admin: 12/11/17 08:39 Dose: 100 mls/hr Insulin Human Regular (Humulin R) 0 units SC ACHS [facility] PRN Reason: Protocol Last Admin: 12/11/17 22:36 Dose: Not Given Ketorolac Tromethamine (Toradol) 30 mg IVP ONCE PRN PRN Reason: Pain, moderate (4-7) Last Admin: 12/08/17 11:09 Dose: 30 mg Ketorolac Tromethamine (Toradol) 30 mg IVP 0500,1100,1700,2300 [facility] Last Admin: 12/11/17 22:00 Dose: 30 mg Ondansetron HCl (Zofran Inj) 4 mg IVP Q4 PRN PRN Reason: Nausea/Vomiting Last Admin: 12/06/17 05:22 Dose: 4 mg Pantoprazole Sodium (Protonix Ec Tab) 40 mg PO DAILY [facility] Last Admin: 12/11/17 10:54 Dose: 40 mg Sucralfate (Carafate Oral Susp) 1 gm PO DAILY [facility] Last Admin: 12/11/17 08:40 Dose: 1 gm - Labs Labs: 12/11/17 09:05 12/11/17 09:05 PT 13.5 Seconds (9.8-13.1) H 12/03/17 23:54 INR 1.2 (0.9-1.2) 12/03/17 23:54 APTT 26.6 Seconds (25.6-37.1) 12/03/17 23:54 Assessment and Plan (1) Adnexal mass Status: Acute (2) Weight loss Status: Acute (3) Pelvic pain Status: Acute
--- NOTE | 2017-12-11 23:59 | CP.PCM.PN ---
Subjective - Date & Time of Evaluation Date of Evaluation: 12/11/17 Time of Evaluation: 10:35 - Subjective Subjective: Patient feels a lot better. Noted positive RNA gonorrhea Noted E coli on urine Has no fever. Objective - Vital Signs/Intake and Output Vital Signs (last 24 hours): Temp Pulse Resp BP Pulse Ox 97.6 F 87 20 98/62 L 100 12/11/17 16:15 12/11/17 16:15 12/11/17 16:15 12/11/17 16:15 12/11/17 16:15 - Medications Medications: Current Medications Alprazolam (Xanax) 1 mg PO DAILY [facility] Last Admin: 12/11/17 08:38 Dose: 1 mg Dextrose (Dextrose 50% Inj) 0 ml IV STAT PRN; Protocol PRN Reason: Hypoglycemia Protocol Dextrose (Glutose 15) 0 gm PO ONCE PRN; Protocol PRN Reason: Hypoglycemia Protocol Docusate Sodium (Colace) 100 mg PO BID [facility] Last Admin: 12/11/17 17:05 Dose: 100 mg Enoxaparin Sodium (Lovenox) 40 mg SC DAILY [facility] PRN Reason: Protocol Last Admin: 12/07/17 08:42 Dose: 40 mg Ferrous Sulfate (Feosol) 325 mg PO BID [facility] Last Admin: 12/11/17 17:06 Dose: 325 mg Glucagon (Glucagen Diagnostic Kit) 0 mg IM STAT PRN; Protocol PRN Reason: Hypoglycemia Protocol Metronidazole (Flagyl 500mg/100ml Ns) 100 mls @ 100 mls/hr IVPB Q8@0600,1400, 2200 [facility] PRN Reason: Protocol Last Admin: 12/11/17 22:01 Dose: 100 mls/hr Lactated Ringer's (Lactated Ringer's) 1,000 mls @ 100 mls/hr IV .Q10H [facility] Last Admin: 12/10/17 05:22 Dose: Not Given Ceftriaxone Sodium 2 gm/ (Sodium Chloride) 100 mls @ 100 mls/hr IVPB DAILY [facility] PRN Reason: Protocol Last Admin: 12/11/17 08:39 Dose: 100 mls/hr Insulin Human Regular (Humulin R) 0 units SC ACHS [facility] PRN Reason: Protocol Last Admin: 12/11/17 22:36 Dose: Not Given Ketorolac Tromethamine (Toradol) 30 mg IVP ONCE PRN PRN Reason: Pain, moderate (4-7) Last Admin: 12/08/17 11:09 Dose: 30 mg Ketorolac Tromethamine (Toradol) 30 mg IVP 0500,1100,1700,2300 [facility] Last Admin: 12/11/17 22:00 Dose: 30 mg Ondansetron HCl (Zofran Inj) 4 mg IVP Q4 PRN PRN Reason: Nausea/Vomiting Last Admin: 12/06/17 05:22 Dose: 4 mg Pantoprazole Sodium (Protonix Ec Tab) 40 mg PO DAILY [facility] Last Admin: 12/11/17 10:54 Dose: 40 mg Sucralfate (Carafate Oral Susp) 1 gm PO DAILY [facility] Last Admin: 12/11/17 08:40 Dose: 1 gm - Labs Labs: 12/11/17 09:05 12/11/17 09:05 PT 13.5 Seconds (9.8-13.1) H 12/03/17 23:54 INR 1.2 (0.9-1.2) 12/03/17 23:54 APTT 26.6 Seconds (25.6-37.1) 12/03/17 23:54 Assessment and Plan (1) Adnexal mass Status: Acute (2) Weight loss Status: Acute (3) Pelvic pain Status: Acute
[2017-12-12] MEDS: Simethicone 80 mg Chewtab PO SCH ×2 (04:42→09:09)
[2017-12-12] MEDS: metroNIDAZOLE 500mg/100ml NS 100 ML IVPB SCH (05:34)
[2017-12-12] MEDS: Lactated Ringer's 1,000 ML IV SCH (05:45)
[2017-12-12 06:47] LABS: BLOOD UREA NITROGEN 9 mg/dl (7-17); GFR AFRICAN-AMERICAN > 60; GFR NON-AFRICAN AMERICAN > 60
[2017-12-12] MEDS: Insulin Regular 100 units/ml SC SCH ×2 (07:30→11:30)
[2017-12-12 08:31] VITALS: BP 141/82; PULSE 72; RESP 20; TEMP 98.2
[2017-12-12] MEDS ORDERED: Simethicone 80 mg Chewtab PO SCH (09:00)
[2017-12-12] MEDS: Sucralfate 1 gm/10 ml Oral Susp UD PO SCH (09:02)
[2017-12-12] MEDS: Pantoprazole 40 mg EC Tab PO SCH (09:03)
--- NOTE | 2017-12-12 10:10 | CP.PCM.PN ---
Subjective - Date & Time of Evaluation Date of Evaluation: 12/12/17 Time of Evaluation: 10:07 - Subjective Subjective: c/o abdominal pain no bm today Objective - Vital Signs/Intake and Output Vital Signs (last 24 hours): Temp Pulse Resp BP Pulse Ox 98.2 F 72 20 141/82 97 12/12/17 08:30 12/12/17 08:30 12/12/17 08:30 12/12/17 08:30 12/12/17 08:30 - Medications Medications: Current Medications Alprazolam (Xanax) [address] [facility] Last Admin: 12/12/17 09:09 Dose: 1 mg Dextrose (Dextrose 50% Inj) 0 ml IV STAT PRN; Protocol PRN Reason: Hypoglycemia Protocol Dextrose (Glutose 15) 0 gm PO ONCE PRN; Protocol PRN Reason: Hypoglycemia Protocol Docusate Sodium (Colace) [address] [facility] Last Admin: 12/12/17 09:02 Dose: 100 mg Enoxaparin Sodium (Lovenox) [address] [facility] PRN Reason: Protocol Last Admin: 12/07/17 08:42 Dose: 40 mg Ferrous Sulfate (Feosol) [address] [facility] Last Admin: 12/12/17 09:02 Dose: 325 mg Glucagon (Glucagen Diagnostic Kit) 0 mg IM STAT PRN; Protocol PRN Reason: Hypoglycemia Protocol Metronidazole (Flagyl 500mg/100ml Ns) 100 mls @ 100 mls/hr IVPB Q8@0600,1400, 2200 [facility] PRN Reason: Protocol Last Admin: 12/12/17 05:34 Dose: 100 mls/hr Lactated Ringer's (Lactated Ringer's) 1,000 mls @ 100 mls/hr IV .Q10H [facility] Last Admin: 12/12/17 05:45 Dose: 100 mls/hr Ceftriaxone Sodium 2 gm/ (Sodium Chloride) 100 mls @ 100 mls/hr IVPB DAILY [facility] PRN Reason: Protocol Last Admin: 12/11/17 08:39 Dose: 100 mls/hr Insulin Human Regular (Humulin R) [address] [facility] PRN Reason: Protocol Last Admin: 12/12/17 07:30 Dose: Not Given Ketorolac Tromethamine (Toradol) 30 mg IVP ONCE PRN PRN Reason: Pain, moderate (4-7) Last Admin: 12/08/17 11:09 Dose: 30 mg Ketorolac Tromethamine (Toradol) 30 mg IVP 0500,1100,1700,2300 [facility] Last Admin: 12/12/17 04:06 Dose: 30 mg Ondansetron HCl (Zofran Inj) 4 mg IVP Q4 PRN PRN Reason: Nausea/Vomiting Last Admin: 12/06/17 05:22 Dose: 4 mg Pantoprazole Sodium (Protonix Ec Tab) [address] [facility] Last Admin: 12/12/17 09:03 Dose: 40 mg Simethicone (Mylicon Chew Tab) [address] [facility] Last Admin: 12/12/17 09:09 Dose: 80 mg Sucralfate (Carafate Oral Susp) [address] [facility] Last Admin: 12/12/17 09:02 Dose: 1 gm - Labs Labs: 12/11/17 09:05 12/12/17 05:40 PT 13.5 Seconds (9.8-13.1) H 12/03/17 23:54 INR 1.2 (0.9-1.2) 12/03/17 23:54 APTT 26.6 Seconds (25.6-37.1) 12/03/17 23:54 - Eye Exam Additional comments: v.s stable afebrile incision healing well Assessment and Plan - Assessment and Plan (Free Text) Assessment: stable pod4 s/p left salpingoooporectomy Plan: dc home today rto 12/16/17
--- NOTE | 2017-12-12 10:26 | CP.PCM.DIS ---
Provider - Provider Date of Admission: 12/04/17 03:24 Attending physician: Soto Young MD Primary care physician: Dr. Young Consults: Dr. Chan-Obgyn; Dr. Marie-surgery, Dr. Bagley-ID Time Spent in preparation of Discharge (in minutes): 30 Diagnosis - Discharge Diagnosis (1) Tubo-ovarian abscess Status: Acute Priority: Low Hospital Course - Lab Results Lab Results: Micro Results 12/08/17 14:30 Other: Please Indicate Gram Stain - Final 12/08/17 14:30 Other: Please Indicate Wound Culture - Final No Growth 12/08/17 14:30 Cyst Gram Stain - Final 12/08/17 14:30 Cyst Wound Culture - Final No Growth 12/07/17 09:30 Stool Ova and Parasite Concentrate Exam - Final 12/03/17 23:45 Blood Blood Culture - Final NO GROWTH AFTER 5 DAYS 12/03/17 23:45 Blood Gram Stain - Final TEST NOT PERFORMED 12/03/17 05:22 Urine Urine Culture - Final Escherichia Coli Most Recent Lab Values WBC 6.4 K/uL (4.8-10.8) 12/11/17 09:05 RBC 3.42 Mil/uL (3.80-5.20) L 12/11/17 09:05 Hgb 8.8 g/dL (12.0-16.0) L 12/11/17 09:05 Hct 27.6 % (34.0-47.0) L 12/11/17 09:05 MCV 80.7 fl (81.0-99.0) L 12/11/17 09:05 MCH 25.7 pg (27.0-31.0) L 12/11/17 09:05 MCHC 31.9 g/dL (33.0-37.0) L 12/11/17 09:05 RDW 15.3 % (11.5-14.5) H 12/11/17 09:05 Plt Count 250 K/uL (130-400) 12/11/17 09:05 MPV 7.8 fl (7.2-11.7) 12/11/17 09:05 Neut % (Auto) 78.2 % (50.0-75.0) H 12/11/17 09:05 Lymph % (Auto) 13.8 % (20.0-40.0) L 12/11/17 09:05 [place] % (Auto) 6.5 % (0.0-10.0) 12/11/17 09:05 Eos % (Auto) 1.1 % (0.0-4.0) 12/11/17 09:05 Baso % (Auto) 0.4 % (0.0-2.0) 12/11/17 09:05 Neut # 5.0 K/uL (1.8-7.0) 12/11/17 09:05 Lymph # 0.9 K/uL (1.0-4.3) L 12/11/17 09:05 [place] # 0.4 K/uL (0.0-0.8) 12/11/17 09:05 Eos # 0.1 K/uL (0.0-0.7) 12/11/17 09:05 Baso # 0.0 K/uL (0.0-0.2) 12/11/17 09:05 Neutrophils % (Manual) 75 % (42-75) 12/09/17 05:25 Lymphocytes % (Manual) 11 % (20-50) L 12/09/17 05:25 Monocytes % (Manual) 2 % (0-10) 12/09/17 05:25 Eosinophils % (Manual) 12 % (0-7) H 12/09/17 05:25 Platelet Estimate Normal (NORMAL) 12/09/17 05:25 Plt Clumps, EDTA Present 12/09/17 05:25 Hypochromasia (manual) Slight 12/09/17 05:25 Anisocytosis (manual) Slight 12/09/17 05:25 Spherocytes Slight 12/09/17 05:25 PT 13.5 Seconds (9.8-13.1) H 12/03/17 23:54 INR 1.2 (0.9-1.2) 12/03/17 23:54 APTT 26.6 Seconds (25.6-37.1) 12/03/17 23:54 pO2 26 mm/Hg (30-55) L 12/03/17 00:00 VBG pH 7.44 (7.32-7.43) H 12/03/17 00:00 VBG pCO2 42 mmHg (40-60) 12/03/17 00:00 VBG HCO3 26.7 mmol/L 12/03/17 00:00 VBG Total CO2 29.8 mmol/L (22-28) H 12/03/17 00:00 VBG O2 Sat (Calc) 52.0 % (40-65) 12/03/17 00:00 VBG Base Excess 3.9 mmol/L (0.0-2.0) H 12/03/17 00:00 VBG Potassium 3.6 mmol/L (3.6-5.2) 12/03/17 00:00 Sodium 138.0 mmol/L (132-148) 12/03/17 00:00 Chloride 100.0 mmol/L (98-107) 12/03/17 00:00 Glucose 148 mg/dL (65-105) H 12/03/17 00:00 Lactate 1.3 mmol/L (0.7-2.1) 12/03/17 00:00 FiO2 21.0 % 12/03/17 00:00 Sodium 140 mmol/l (132-148) 12/12/17 05:40 Potassium 3.8 MMOL/L (3.6-5.0) 12/12/17 05:40 Chloride 104 mmol/L (98-107) 12/12/17 05:40 Carbon Dioxide 28 mmol/L (22-30) 12/12/17 05:40 Anion Gap 12 (10-20) 12/12/17 05:40 BUN 9 mg/dl (7-17) 12/12/17 05:40 Creatinine 0.6 mg/dl (0.7-1.2) L 12/12/17 05:40 Est GFR ( Amer) > 60 12/12/17 05:40 Est GFR (Non-Af Amer) > 60 12/12/17 05:40 POC Glucose (mg/dL) 116 mg/dL (65-110) H 12/12/17 05:23 Random Glucose 124 mg/dL (65-105) H 12/12/17 05:40 Calcium 9.0 mg/dL (8.4-10.2) 12/12/17 05:40 Phosphorus 4.3 mg/dl (2.5-4.5) 12/03/17 23:54 Magnesium 1.7 MG/DL (1.6-2.3) 12/03/17 23:54 Total Bilirubin 0.3 mg/dl (0.2-1.3) 12/11/17 09:05 AST 30 U/L (14-36) 12/11/17 09:05 ALT 46 U/L (9-52) 12/11/17 09:05 Alkaline Phosphatase 73 U/L (38-126) 12/11/17 09:05 Total Protein 6.0 G/DL (6.3-8.2) L 12/11/17 09:05 Albumin 2.9 g/dL (3.5-5.0) L 12/11/17 09:05 Globulin 3.1 gm/dL (2.2-3.9) 12/11/17 09:05 Albumin/Globulin Ratio 1.0 (1.0-2.1) 12/11/17 09:05 Lipase 52 U/L (23-300) 12/03/17 23:54 Alpha Fetoprotein 2.6 IU/mL (0.0-7.22) 12/04/17 10:50 Carcinoembryonic Ag 2.7 ng/mL (0-3.0) 12/04/17 10:50 CA 19-9 Antigen 9.1 U/mL (0-37) 12/04/17 10:50 CA 125 Antigen 223 U/mL (0-35) H 12/04/17 10:50 Procalcitonin < 0.05 NG/ML (0.19-0.49) L 12/04/17 15:30 Venous Blood Potassium 3.6 mmol/L (3.6-5.2) 12/03/17 00:00 Urine Color Yellow (YELLOW) 12/04/17 01:01 Urine Clarity Slighty-cloudy (Clear) 12/04/17 01:01 Urine pH 6.0 (5.0-8.0) 12/04/17 01:01 Ur Specific [place] 1.016 (1.003-1.030) 12/04/17 01:01 Urine Protein Negative mg/dL (NEGATIVE) 12/04/17 01:01 Urine Glucose (UA) Neg mg/dL (Normal) 12/04/17 01:01 Urine Ketones Negative mg/dL (NEGATIVE) 12/04/17 01:01 Urine Blood Moderate (NEGATIVE) 12/04/17 01:01 Urine Nitrate Negative (NEGATIVE) 12/04/17 01:01 Urine Bilirubin Negative (NEGATIVE) 12/04/17 01:01 Urine Urobilinogen 0.2-1.0 mg/dL (0.2-1.0) 12/04/17 01:01 Ur Leukocyte Esterase Small Bee/uL (Negative) 12/04/17 01:01 Urine RBC (Auto) 5 /hpf (0-3) H 12/04/17 01:01 Urine Microscopic WBC 23 /hpf (0-5) H 12/04/17 01:01 Ur Squamous Epith Cells 1 /hpf (0-5) 12/04/17 01:01 Urine Bacteria Rare (<OCC) 12/04/17 01:01 Stool Occult Blood Negative (NEGATIVE) 12/07/17 15:20 RPR Nonreactive (NONREACTIVE) 12/04/17 15:30 C.trachomatis RNA (TMA) Not detected (Not Detected) 12/04/17 13:43 Hepatitis A IgM Ab Negative (NEGATIVE) 12/04/17 15:30 Hep Bs Antigen Negative (NEGATIVE) 12/04/17 15:30 Hep B Core IgM Ab Negative (NEGATIVE) 12/04/17 15:30 Hepatitis C Antibody Negative (NEGATIVE) 12/04/17 15:30 HIV 1&2 Antibody Screen Negative (NEGATIVE) 12/04/17 15:30 N.gonorrhoeae RNA (TMA) Detected (Not Detected) H 12/04/17 13:43 Blood Type O POSITIVE 12/08/17 08:07 Blood Type Confirm O POSITIVE 12/04/17 10:50 Antibody Screen Negative 12/08/17 08:07 Crossmatch See Detail 12/08/17 08:07 BBK History Checked Patient has bt 12/08/17 08:07 - Hospital Course Hospital Course: 62 yr old F admitted for severe pelvic pain and found to have a left tubo- ovarian abscess. Patient is POD # 4 s/p left salpingo-oophorectomy. Pelvic pain has improved, patient is tolerating PO diet, ambulating without difficulty and has normal urine output. Patient is medically stable for discharge with instructions to follow up with PMD-Dr. Young and Dr. Chan-[facility] [place] within 1 week. - Date & Time of H&P Date of H&P: 12/04/17 Time of H&P: 10:16 Discharge Exam - Head Exam Head Exam: ATRAUMATIC, NORMOCEPHALIC - Eye Exam Eye Exam: EOMI, PERRL - ENT Exam ENT Exam: Mucous Membranes Moist - Neck Exam Neck exam: Full Rom - Respiratory Exam Respiratory Exam: Clear to PA & Lateral, NORMAL BREATHING PATTERN - Cardiovascular Exam Cardiovascular Exam: REGULAR RHYTHM, +S1, +S2 - GI/Abdominal Exam GI & Abdominal Exam: Normal Bowel Sounds, Soft, Tenderness (mild ) Additional comments: Pfannenstiel incision healing well - Extremities Exam Extremities exam: full ROM - Neurological Exam Neurological exam: Alert, CN II-XII Intact, Normal Gait, Oriented x3 - Psychiatric Exam Psychiatric exam: Normal Affect, Normal Mood - Skin Skin Exam: Dry, Normal Color, Warm Discharge Plan - Follow Up Plan Condition: GOOD Disposition: HOME/ ROUTINE Instructions: Ibuprofen (By mouth), Gastritis (DC), Exploratory Laparotomy (DC) Referrals: Narendra Romeo MD [Staff Provider] - Soto Young MD [Staff Provider] - Kade Bagley MD [Staff Provider] - Keshawn Chan MD [Staff Provider] - Clinical Quality Measures - Date & Time of Discharge Summary Date of Discharge Summary: 12/12/17 Time of Discharge Summary: 11:30
--- NOTE | 2017-12-12 12:34 | CP.PCM.PN ---
Subjective - Date & Time of Evaluation Date of Evaluation: 12/12/17 Time of Evaluation: 10:00 - Subjective Subjective: improving on IV rx Objective - Vital Signs/Intake and Output Vital Signs (last 24 hours): Temp Pulse Resp BP Pulse Ox 98.2 F 72 20 141/82 97 12/12/17 08:30 12/12/17 08:30 12/12/17 08:30 12/12/17 08:30 12/12/17 08:30 - Labs Labs: 12/11/17 09:05 12/12/17 05:40 PT 13.5 Seconds (9.8-13.1) H 12/03/17 23:54 INR 1.2 (0.9-1.2) 12/03/17 23:54 APTT 26.6 Seconds (25.6-37.1) 12/03/17 23:54 - Constitutional Appears: Non-toxic, Chronically Ill - Head Exam Head Exam: NORMOCEPHALIC - Eye Exam Eye Exam: PERRL - ENT Exam ENT Exam: Mucous Membranes Dry - Neck Exam Neck Exam: absent: Lymphadenopathy - Respiratory Exam Respiratory Exam: Decreased Breath Sounds - Cardiovascular Exam Cardiovascular Exam: REGULAR RHYTHM - GI/Abdominal Exam GI & Abdominal Exam: Distended, Soft - Rectal Exam Rectal Exam: Deferred - Exam Exam: NORMAL INSPECTION Assessment and Plan (1) Adnexal mass Status: Acute (2) Pelvic pain Status: Acute (3) Weight loss Status: Acute (4) Acute gastritis Status: Acute
[2017-12-13 14:05] VITALS: O2SAT 98
== END 2017-12-12 12:17 | disposition home health service (06) | DRG 742 ==
LOC: H.ER 22:52 → H.ERHOLD 12-04 03:24 → H.MEDSURG1 12-04 04:42
PROVIDERS: ADMIT Family Medicine; ATTEND Family Medicine
PROC: 0UT10ZZ Resection of Left Ovary, Open Approach (ICD-10-PCS; 2017-12-08)
PROC: 0UN10ZZ Release Left Ovary, Open Approach (ICD-10-PCS; 2017-12-08)
PROC: 0UT60ZZ Resection of Left Fallopian Tube, Open Approach (ICD-10-PCS; principal; 2017-12-08 07:45)
DX: N70.03 Acute salpingitis and oophoritis (principal); K62.5 Hemorrhage of anus and rectum; K66.0 Peritoneal adhesions (postprocedural) (postinfection); D72.828 Other elevated white blood cell count; N93.9 Abnormal uterine and vaginal bleeding, unspecified; K29.00 Acute gastritis without bleeding; E11.9 Type 2 diabetes mellitus without complications; E78.5 Hyperlipidemia, unspecified; F32.9 Major depressive disorder, single episode, unspecified; M81.0 Age-related osteoporosis without current pathological fracture; R97.1 Elevated cancer antigen 125 [CA 125]; Z88.0 Allergy status to penicillin

== ENCOUNTER 2017-12-25 19:09 | Inpatient (IN) | payer MEDICARE ==
[2017-12-25 19:09] VITALS: BMI 27.9
[2017-12-25] MEDS ORDERED: Morphine 4 MG/ML VIAL IVP STA (20:09)
[2017-12-25] MEDS ORDERED: Morphine 4 MG/ML VIAL ONE (20:14)
[2017-12-25 20:58] LABS: BASO # 0.1 K/uL (0.0-0.2); EOS # 0.1 K/uL (0.0-0.7); EOS % 0.6 % (0.0-4.0); HEMOGLOBIN 10.2 g/dL (12.0-16.0); LYMPH # 2.3 K/uL (1.0-4.3); LYMPH % 24.6 % (20.0-40.0); MEAN CELL VOLUME 79.7 fl (81.0-99.0); MEAN CORPUSCULAR HEMOGLOBIN 26.5 pg (27.0-31.0); MEAN CORPUSCULAR HGB CONC 33.3 g/dL (33.0-37.0); MEAN PLATELET VOLUME 8.3 fl (7.2-11.7); MONO # 0.7 K/uL (0.0-0.8); NEUT % 65.8 % (50.0-75.0); NRBC % 0.1 % (0.0-0.0); RBC 3.85 Mil/uL (3.80-5.20); RED CELL DISTRIBUTION WIDTH 16.1 % (11.5-14.5); WHITE BLOOD COUNT 9.2 K/uL (4.8-10.8)
[2017-12-25 21:18] LABS: PARTIAL THROMBOPLASTIN TIME 25.8 Seconds (25.6-37.1); PROTHROMBIN TIME 11.2 Seconds (9.8-13.1)
[2017-12-25 21:24] LABS: ALB/GLOB RATIO 1.1 (1.0-2.1); ALBUMIN 3.8 g/dL (3.5-5.0); ALT/SGPT 36 U/L (9-52); AST/SGOT 29 U/L (14-36); BLOOD UREA NITROGEN 19 mg/dl (7-17); CALCIUM 9.7 mg/dL (8.4-10.2); GFR AFRICAN-AMERICAN > 60; GFR NON-AFRICAN AMERICAN > 60; LIPASE 171 U/L (23-300)
--- NOTE | 2017-12-25 21:38 | ED PDOC ---
HPI: Abdomen Time Seen by Provider: 12/25/17 19:37 Chief Complaint (Nursing): Abdominal Pain Chief Complaint (Provider): Abdominal Pain History Per: Patient History/Exam Limitations: no limitations Additional Complaint(s): 62 y/o female presents to the ED complaining of abdominal pain. Patient was recently hospitalized here for abdominal abscess with final diagnosis of TOA. While here she had explore laparotomy and resection of her ovary. 2 hours after hospital discharge she presented to the emergency room in [facility] [place] for severe pain and abdominal distension. She had a cat scan, unsure of findings but has an NG tube placed and stayed in the hospital for about a week. Family reports that there was areas of fluid in her abdomen. Patient has been home for 9 days and reports she has been fine and was able to stop taking her pain medications 4 days ago. At 4pm today patient started feeling abdominal pain and started feeling distended today. She had one bowel moment today. Denies taking any medications at home. Denies nausea, vomiting, diarrhea, fever, chills or any further medical complaints. PMD: Soto Young MD Past Medical History Reviewed: Historical Data, Nursing Documentation, Vital Signs Vital Signs: Last Vital Signs Temp 98.8 F 01/01/18 08:38 Pulse 72 01/01/18 08:38 Resp 20 01/01/18 08:38 BP 130/75 01/01/18 08:38 Pulse Ox 98 01/05/18 21:24 - Medical History PMH: Depression, Diabetes, Gastritis, Hypercholesterolemia, Osteoporosis Denies: Chronic Kidney Disease - Surgical History Surgical History: Endoscopy, - Family History Family History: States: Diabetes - Home Medications Home Medications: Ambulatory Orders Medication Instructions Recorded Alprazolam [Xanax] 1 tab PO PRN PRN 12/04/17 Omeprazole 1 tab PO DAILY 12/04/17 Sucralfate [Carafate Tab] 1 tab PO DAILY 12/04/17 metFORMIN [glucOPHAGE] 500 mg PO BID 12/04/17 Ibuprofen [Motrin Tab] 800 mg PO PRN PRN 12/26/17 Medroxyprogesterone Acetate 10 mg PO DAILY 12/26/17 [Provera] oxyCODONE [oxyCODONE Immediate 5 mg PO PRN PRN 12/26/17 Release Tab] DULoxetine [Cymbalta] 60 mg PO DAILY #30 ecc 01/01/18 Metronidazole [Flagyl] 500 mg PO TID #15 tab 01/01/18 cefTRIAXone [Rocephin] 2 gm IVPB DAILY #4 vial 01/01/18 - Allergies Allergies/Adverse Reactions: Allergies Allergy/AdvReac Type Severity Reaction Status Date / Time Penicillins Allergy RASH Verified 12/03/17 23:03 Review of Systems ROS Statement: Except As Marked, All Systems Reviewed And Found Negative (As per HPI, otherwise negative) Constitutional: Negative for: Fever, Chills Gastrointestinal: Positive for: Abdominal Pain. Negative for: Nausea, Vomiting , Diarrhea Physical Exam - Reviewed Nursing Documentation Reviewed: Yes Vital Signs Reviewed: Yes - Physical Exam Appears: Positive for: Non-toxic, In Acute Distress Head Exam: Positive for: ATRAUMATIC, NORMOCEPHALIC Skin: Positive for: Warm, Dry Eye Exam: Positive for: EOMI, PERRL ENT: Positive for: Other (tacky mucus membranes). Negative for: Pharyngeal Erythema, Tonsillar Exudate Neck: Positive for: Painless ROM, Supple Cardiovascular/Chest: Positive for: Regular Rate, Rhythm. Negative for: Murmur Respiratory: Positive for: Normal Breath Sounds. Negative for: Respiratory Distress Gastrointestinal/Abdominal: Positive for: Soft, Tenderness. Negative for: Mass , Distended, Guarding, Rebound Back: Positive for: Normal Inspection. Negative for: Decreased ROM Extremity: Positive for: Normal ROM. Negative for: Deformity Lymphatic: Negative for: Adenopathy Neurologic/Psych: Positive for: Alert. Negative for: Motor/Sensory Deficits - Laboratory Results Result Diagrams: 01/01/18 12:19 01/01/18 12:19 - ECG O2 Sat by Pulse Oximetry: 98 (RA) Pulse Ox Interpretation: Normal Medical Decision Making Medical Decision Making: Time: 20:06 Initial Impression: post-surgical abdominal pain Plan: CT Abdomen & Pelvis Urine dipstick Abdomen w/ chest x-ray Morphine 4mg IVP Blood culture IV insertion (saline lock) Mild anemia. No emergently significant abnormalities 1130pm CT demonstrates possible abscess at site of LEFT oopherectomy DW Dr Young PMD. For admission. Scribe Attestation: Documented by Cate Hernandez acting as a scribe for Liliane Yanes MD. Scribe Attestation: All medical record entries made by the Scribe were at my direction and personally dictated by me. I have reviewed the chart and agree that the record accurately reflects my personal performance of the history, physical exam, medical decision making, and the department course for this patient. I have also personally directed, reviewed, and agree with the discharge instructions and disposition. Disposition - Clinical Impression Clinical Impression: Tubo-ovarian abscess, Abdominal pain Counseled Patient/Family Regarding: Studies Performed, Diagnosis - Disposition Disposition Time: 23:30 Condition: FAIR - Pt Status Changed To: Hospital Disposition Of: Inpatient - Admit Certification Admit to Inpatient:: After my assessment, the patient will require hospitalization for at least two midnights. This is because of the severity of symptoms shown, intensity of services needed, and/or the medical risk in this patient being treated as an outpatient. - POA Present On Arrival: Surgical Site Infection
[2017-12-25] MEDS ORDERED: Sodium Chloride 0.9% 50 ML IV ONE (21:46)
[2017-12-25] MEDS ORDERED: Iohexol 300 100 ML IJ ONE (21:46)
--- NOTE | 2017-12-25 23:32 | CT ---
EXAM: CT Abdomen and Pelvis With Intravenous Contrast EXAM DATE/TIME: 12/25/2017 8:06 PM CLINICAL HISTORY: 62 years old, female; Pain; Abdominal pain; Generalized; Prior surgery; Surgery date: <1 month; Surgery type: Pt states: Left overy removed, nov; Additional info: Post surg abd pain TECHNIQUE: Axial computed tomography images of the abdomen and pelvis with intravenous contrast. All CT scans at this facility use one or more dose reduction techniques, viz.: automated exposure control; ma/kV adjustment per patient size (including targeted exams where dose is matched to indication; i.e. head); or iterative reconstruction technique. Coronal and sagittal reformatted images were created and reviewed. CONTRAST: 90 mL of [id number] administered intravenously. COMPARISON: Prior CT abdomen and pelvis of 2017-12-04 FINDINGS: LOWER THORAX: Incidental 1.2 cm left breast nodule. This appears low in density, and it could represent a cyst, but it is indeterminate by CT. Recommend further evalation with mammography and/or breast ultrasound, on a nonemergent basis. ABDOMEN: LIVER: Fatty infiltration of the liver. GALLBLADDER AND BILE DUCTS: No CT evidence of acute cholecystitis. No evidence of significant biliary ductal dilatation. PANCREAS: No CT evidence of acute pancreatitis. SPLEEN: No acute abnormality of the spleen identified. ADRENALS: No acute abnormality of the adrenal glands identified. KIDNEYS AND URETERS: Grossly stable appearance of multiple ( too numerous to count) low density lesions in the left kidney, most likely representing multiple left renal cysts. There are both parapelvic cysts and cortical cysts again seen. No evidence of significant hydroureter. No obstructing stones are seen. STOMACH AND BOWEL: Cecum and ascending colon are mildly to moderately dilated. There is no evidence of a significant transition point in the colon. They are also scattered, mildly dilated small bowel loops visualized, with no evidence of a single abrupt transition point in the small bowel. The Constellation of findings is most likely secondary to a mild ileus of the bowel. No evidence of a diffuse large bowel dilatation or high grade SBO. Colonic diverticulosis, with no evidence of acute diverticulitis. Otherwise, no significant abnormality of the bowel is identified. APPENDIX: Appendix is seen, and is within normal limits in appearance. PELVIS: BLADDER: No acute abnormality of the bladder identified. REPRODUCTIVE: Patient is reportedly post left oophorectomy. Previously seen large, complex left ovarian mass has resolved. There is a small 3.5 x 3 cm oval shaped fluid density/cystic mass containing a small amount of air in the left adnexal region, in the oophorectomy bed, best seen on image 45 of series 601. This has a thin soft tissue rim. There is mild stranding of the left anterior pelvic fat, suspicious for inflammation. No acute abnormality of the uterus identified. ABDOMEN and PELVIS: INTRAPERITONEAL SPACE: No evidence of free intraperitoneal air or fluid. BONES/JOINTS: No acute fractures or other acute bony abnormality noted. SOFT TISSUES: Post operative operative changes involving the anterior pelvic wall soft tissues. Multiple skin jae are seen, and there is mild subcutaneous fat infiltration, most likely representing residual postoperative change. No evidence of a focal soft tissue abscess. Stable findings in the gluteal soft tissues diffusely, which are most likely related to extensive chronic subcutaneous injections, such as silicone injections. VASCULATURE: No evidence of abdominal aortic aneurysm. No evidence of periaortic hemorrhage. LYMPH NODES: No evidence of diffuse lymphadenopathy. IMPRESSION: - Small 3.5 x 3 cm fluid collection containing gas in the left oophorectomy bed. Cannot exclude a small abscess or infected seroma. - Bowel findings which are most likely secondary to a mild ileus. - Incidental breast lesion, as described. See recommendations above. - See above for remaining findings.
[2017-12-26] MEDS ORDERED: Morphine 4 MG/ML VIAL IVP ONE (04:00)
[2017-12-26] MEDS ORDERED: oxyCODONE 5 mg Immediate Release Tab PO PRN (06:28)
--- NOTE | 2017-12-26 07:55 | CP.PCM.CON ---
<Julio Caraballo - Last Filed: 12/26/17 11:06> History of Present Illness - History of Present Illness History of Present Illness: General Surgery: Dr Romeo Pt S&E. Recently d/c from [facility] s/p ex-lap with left salpingectomy- oopherectomy. Pt reports she has had pain and vomiting immediately upon discharge. Pt did not return to [facility] ED, and has not followed up with care team here and instead went to [facility] where she was treated like an SBO w/ NGT decompression. Pt states she was discharged tolerating diet, but has continued to have abdominal pain. Unable to describe precisely where the pain was and just states her "whole body hurts". Pt denies any fevers, chills, sob or chest pain. States she has been recently tolerating diet. Having regular BMs. CT scan in abdomen read as LLQ abscess. D/W Dr Corrigan, there is no abscess present. There is some fluid in the pelvis but not something that needs to be/ can be drained. Pt does appear constipated, especially ascending colon. Review of Systems - Review of Systems All systems: reviewed and no additional remarkable complaints except (as per hpi ) Past Patient History - Past Medical History & Family History Past Medical History?: Yes - Past Social History Smoking Status: Never Smoked - CARDIAC Hx Hypercholesterolemia: Yes - PULMONARY Hx Respiratory Disorders: No - NEUROLOGICAL Hx Neurological Disorder: No - HEENT Hx HEENT Problems: No - RENAL Hx Chronic Kidney Disease: No - ENDOCRINE/METABOLIC Hx Endocrine Disorders: Yes Hx Diabetes Mellitus Type 2: Yes - HEMATOLOGICAL/ONCOLOGICAL Hx Blood Disorders: No - INTEGUMENTARY Hx Dermatological Problems: No - MUSCULOSKELETAL/RHEUMATOLOGICAL Hx Falls: No Hx Osteoporosis: Yes - GASTROINTESTINAL Hx Gastritis: Yes - GENITOURINARY/GYNECOLOGICAL Hx Genitourinary Disorders: No - PSYCHIATRIC Hx Depression: Yes Hx Substance Use: No - SURGICAL HISTORY Hx Surgeries: Yes (HIATAL HERNIA SX) Hx Section: Yes - ANESTHESIA Hx Anesthesia: Yes Hx Anesthesia Reactions: No Hx Malignant Hyperthermia: No Meds Allergies/Adverse Reactions: Allergies Allergy/AdvReac Type Severity Reaction Status Date / Time Penicillins Allergy RASH Verified 12/03/17 23:03 - Medications Medications: Current Medications Medroxyprogesterone Acetate (Provera) 10 mg PO DAILY [facility] Metformin HCl (Glucophage) 500 mg PO BID [facility] Morphine Sulfate (Morphine) 4 mg IVP Q6 PRN PRN Reason: Pain, severe (8-10) Pantoprazole Sodium (Protonix Inj) 40 mg IVP DAILY [facility] Physical Exam - Constitutional Appears: Non-toxic, No Acute Distress - Eye Exam Eye Exam: Normal appearance - ENT Exam ENT Exam: Normal Exam - Respiratory Exam Respiratory Exam: absent: Accessory Muscle Use, Respiratory Distress - Cardiovascular Exam Cardiovascular Exam: REGULAR RHYTHM. absent: Tachycardia - GI/Abdominal Exam GI & Abdominal Exam: Soft, Tenderness (pt voluntary guarding, but if distracted with conversation does not seem to have much TTP). absent: Distended, Firm, Guarding, Hernia - Extremities Exam Extremities exam: Negative for: pedal edema - Neurological Exam Neurological exam: Alert, Oriented x3 - Psychiatric Exam Psychiatric exam: Normal Affect, Normal Mood Results - Vital Signs Recent Vital Signs: Last Vital Signs Temp 98.4 F 12/26/17 03:07 Pulse 71 12/26/17 03:07 Resp 19 12/26/17 03:09 BP 114/68 12/26/17 03:07 Pulse Ox 99 12/26/17 03:09 - Labs Result Diagrams: 12/25/17 20:49 12/25/17 20:49 Labs: Laboratory Results - last 24 hr 12/25/17 12/25/17 12/25/17 20:49 20:49 20:49 WBC 9.2 RBC 3.85 Hgb 10.2 L Hct 30.7 L MCV 79.7 L MCH 26.5 L MCHC 33.3 RDW 16.1 H Plt Count 332 MPV 8.3 Neut % (Auto) 65.8 Lymph % (Auto) 24.6 [place] % (Auto) 8.0 Eos % (Auto) 0.6 Baso % (Auto) 1.0 Neut # (Auto) 6.0 Lymph # (Auto) 2.3 [place] # (Auto) 0.7 Eos # (Auto) 0.1 Baso # (Auto) 0.1 PT 11.2 INR 1.0 APTT 25.8 Sodium 140 Potassium 3.9 Chloride 103 Carbon Dioxide 27 Anion Gap 14 BUN 19 H Creatinine 0.8 Est GFR ( Amer) > 60 Est GFR (Non-Af Amer) > 60 POC Glucose (mg/dL) Random Glucose 102 Calcium 9.7 Total Bilirubin 0.4 AST 29 ALT 36 Alkaline Phosphatase 113 Total Protein 7.1 Albumin 3.8 Globulin 3.3 Albumin/Globulin Ratio 1.1 Lipase 171 12/26/17 06:46 WBC RBC Hgb Hct MCV MCH MCHC RDW Plt Count MPV Neut % (Auto) Lymph % (Auto) [place] % (Auto) Eos % (Auto) Baso % (Auto) Neut # (Auto) Lymph # (Auto) [place] # (Auto) Eos # (Auto) Baso # (Auto) PT INR APTT Sodium Potassium Chloride Carbon Dioxide Anion Gap BUN Creatinine Est GFR ( Amer) Est GFR (Non-Af Amer) POC Glucose (mg/dL) 100 Random Glucose Calcium Total Bilirubin AST ALT Alkaline Phosphatase Total Protein Albumin Globulin Albumin/Globulin Ratio Lipase Assessment & Plan - Assessment and Plan (Free Text) Assessment: 62F s/p ex-lap with OB for ovarian cyst - recovering well - cc: abdominal pain Plan: d/w IR there is no abscess to drain can resume diet further mgmt per primary team no surgical intention d/w Dr Ousmane Caraballo, PGY3 <Narendra Romeo - Last Filed: 12/26/17 14:59> Meds - Medications Medications: Current Medications Alprazolam (Xanax) 1 mg PO Q8 PRN PRN Reason: Anxiety Enoxaparin Sodium (Lovenox) 40 mg SC DAILY [facility] PRN Reason: Protocol Metronidazole (Flagyl 500mg/100ml Ns) 100 mls @ 100 mls/hr IVPB Q8 [facility] PRN Reason: Protocol Last Admin: 12/26/17 14:39 Dose: 100 mls/hr Ceftriaxone Sodium 2 gm/ (Sodium Chloride) 100 mls @ 100 mls/hr IVPB DAILY [facility] PRN Reason: Protocol Medroxyprogesterone Acetate (Provera) 10 mg PO DAILY [facility] Last Admin: 12/26/17 10:21 Dose: 10 mg Metformin HCl (Glucophage) 500 mg PO BID [facility] Last Admin: 12/26/17 10:21 Dose: 500 mg Morphine Sulfate (Morphine) 4 mg IVP Q6 PRN PRN Reason: Pain, severe (8-10) Last Admin: 12/26/17 10:28 Dose: 4 mg Pantoprazole Sodium (Protonix Inj) 40 mg IVP DAILY [facility] Last Admin: 12/26/17 11:25 Dose: 40 mg Results - Vital Signs Recent Vital Signs: Last Vital Signs Temp 98.3 F 12/26/17 09:00 Pulse 63 12/26/17 09:00 Resp 20 12/26/17 09:00 BP 108/68 12/26/17 09:00 Pulse Ox 97 12/26/17 09:00 - Labs Result Diagrams: 12/25/17 20:49 12/25/17 20:49 Labs: Laboratory Results - last 24 hr 12/25/17 12/25/17 12/25/17 20:49 20:49 20:49 WBC 9.2 RBC 3.85 Hgb 10.2 L Hct 30.7 L MCV 79.7 L MCH 26.5 L MCHC 33.3 RDW 16.1 H Plt Count 332 MPV 8.3 Neut % (Auto) 65.8 Lymph % (Auto) 24.6 [place] % (Auto) 8.0 Eos % (Auto) 0.6 Baso % (Auto) 1.0 Neut # (Auto) 6.0 Lymph # (Auto) 2.3 [place] # (Auto) 0.7 Eos # (Auto) 0.1 Baso # (Auto) 0.1 PT 11.2 INR 1.0 APTT 25.8 Sodium 140 Potassium 3.9 Chloride 103 Carbon Dioxide 27 Anion Gap 14 BUN 19 H Creatinine 0.8 Est GFR ( Amer) > 60 Est GFR (Non-Af Amer) > 60 POC Glucose (mg/dL) Random Glucose 102 Calcium 9.7 Total Bilirubin 0.4 AST 29 ALT 36 Alkaline Phosphatase 113 Total Protein 7.1 Albumin 3.8 Globulin 3.3 Albumin/Globulin Ratio 1.1 Lipase 171 12/26/17 12/26/17 06:46 11:35 WBC RBC Hgb Hct MCV MCH MCHC RDW Plt Count MPV Neut % (Auto) Lymph % (Auto) [place] % (Auto) Eos % (Auto) Baso % (Auto) Neut # (Auto) Lymph # (Auto) [place] # (Auto) Eos # (Auto) Baso # (Auto) PT INR APTT Sodium Potassium Chloride Carbon Dioxide Anion Gap BUN Creatinine Est GFR ( Amer) Est GFR (Non-Af Amer) POC Glucose (mg/dL) 100 92 Random Glucose Calcium Total Bilirubin AST ALT Alkaline Phosphatase Total Protein Albumin Globulin Albumin/Globulin Ratio Lipase Assessment & Plan - Assessment and Plan (Free Text) Plan: no drainable abscess, cont abx
--- NOTE | 2017-12-26 08:49 | CP.PCM.PN ---
Subjective - Date & Time of Evaluation Date of Evaluation: 12/26/17 Time of Evaluation: 08:41 - Subjective Subjective: feels better today incision healing well decrease pain Objective - Vital Signs/Intake and Output Vital Signs (last 24 hours): Temp Pulse Resp BP Pulse Ox 98.4 F 71 19 114/68 99 12/26/17 03:07 12/26/17 03:07 12/26/17 03:09 12/26/17 03:07 12/26/17 03:09 - Medications Medications: Current Medications Alprazolam (Xanax) 1 mg PO Q8 PRN PRN Reason: Anxiety Medroxyprogesterone Acetate (Provera) 10 mg PO DAILY [facility] Metformin HCl (Glucophage) 500 mg PO BID [facility] Morphine Sulfate (Morphine) 4 mg IVP Q6 PRN PRN Reason: Pain, severe (8-10) Pantoprazole Sodium (Protonix Inj) 40 mg IVP DAILY [facility] - Labs Labs: 12/25/17 20:49 12/25/17 20:49 PT 11.2 Seconds (9.8-13.1) 12/25/17 20:49 INR 1.0 (0.9-1.2) 12/25/17 20:49 APTT 25.8 Seconds (25.6-37.1) 12/25/17 20:49 - Eye Exam Additional comments: v.s stable afebrile incision healing well jae removed Assessment and Plan - Assessment and Plan (Free Text) Assessment: stable hdi continue present care Plan: continue present care will discuss care with
[2017-12-26] MEDS ORDERED: OMEPRAZOLE PO SCH (09:00)
[2017-12-26] MEDS ORDERED: CEFPODOXIME 200 MG PO SCH (09:00)
[2017-12-26] MEDS: Morphine 4 MG/ML VIAL IVP PRN ×2 (10:28→18:17)
[2017-12-26] MEDS ORDERED: Morphine 4 MG/ML VIAL ONE (10:29)
--- NOTE | 2017-12-26 10:42 | RAD ---
PROCEDURE: Radiographs of the chest and abdomen (obstructive series) HISTORY: abd pain post surg COMPARISON: Chest radiograph dated 12/07/2017 ; CT scan of the abdomen and pelvis dated 12/04/2017. TECHNIQUE: AP radiograph of the chest, with upright and supine radiographs of the abdomen. FINDINGS: CHEST: Lungs: Clear. Cardiovascular: Cardiomegaly. No pulmonary vascular congestion. Pleura: No pleural fluid. No pneumothorax. Other findings: None. ABDOMEN AND PELVIS: Bowel: Nonspecific bowel gas pattern with gaseous dilatation. Free air: None. Bones: Unremarkable. Other findings: Transverse oriented skin jae. IMPRESSION: Nonspecific bowel gas pattern with gaseous dilatation. No focal consolidation or pleural effusion.
--- NOTE | 2017-12-26 11:53 | CP.PCM.CON ---
History of Present Illness - History of Present Illness History of Present Illness: Recently d/c from [facility] s/p ex-lap with left salpingectomy-oopherectomy. Pt reports she has had pain and vomiting immediately upon discharge. Pt did not return to [facility] ED, and has not followed up with care team here and instead went to [facility] where she was treated like an SBO w/ NGT decompression. Pt states she was discharged tolerating diet, but has continued to have abdominal pain. Unable to describe precisely where the pain was and just states her "whole body hurts". Pt denies any fevers, chills, sob or chest pain. States she has been recently tolerating diet. Having regular BMs. CT scan in abdomen read as LLQ abscess. D/W Dr Corrigan, there is no abscess present. There is some fluid in the pelvis but not something that needs to be/ can be drained. Pt does appear constipated, especially ascending colon. will reculture and restart IV Rocephin/ flagyl Review of Systems - Review of Systems All systems: reviewed and no additional remarkable complaints except - Constitutional Constitutional: As Per HPI - EENT Eyes: absent: As Per HPI, Blind Spots, Blurred Vision, Change in Vision, Decreased Night Vision, Diplopia, Discharge, Dry Eye, Exophthalmos, Floaters, Irritation, Itchy Eyes, Loss of Peripheral Vision, Pain, Photophobia, Requires Corrective Lenses, Sees Flashes, Spots in Vision, Tunnel Vision, Other Visual Disturbances, Loss of Vision, Other Ears: absent: As Per HPI, Decreased Hearing, Ear Discharge, Ear Pain, Tinnitus, Abnormal Hearing, Disequilibrium, Dizziness, Other Nose/Mouth/Throat: absent: As Per HPI, Epistaxis, Nasal Congestion, Nasal Discharge, Nasal Obstruction, Nasal Trauma, Nose Pain, Post Nasal Drip, Sinus Pain, Sinus Pressure, Bleeding Gums, Change in Voice, Dental Pain, Dry Mouth, Dysphagia, Halitosis, Hoarsness, Lip Swelling, Mouth Lesions, Mouth Pain, Odynophagia, Sore Throat, Throat Swelling, Tongue Swelling, Facial Pain, Neck Pain, Neck Mass, Other - Breasts Breasts: absent: As Per HPI, Change in Shape, Mass, Pain, Nipple Discharge, Nipple Inversion, Skin Changes, Swelling, Other - Cardiovascular Cardiovascular: absent: As Per HPI, Acrocyanosis, Chest Pain, Chest Pain at Rest , Chest Pain with Activity, Claudication, Diaphoresis, Dyspnea, Dyspnea on Exertion, Edema, Irregular Heart Rhythm, Pain Radiating to Arm/Neck/Jaw, Leg Edema, Leg Ulcers, Lightheadedness, Orthopnea, Palpitations, Paroxysmal Nocturnal Dyspnea, Pedal Edema, Radiating Pain, Rapid Heart Rate, Slow Heart Rate, Syncope, Other - Respiratory Respiratory: absent: As Per HPI, Cough, Dyspnea, Hemoptysis, Dyspnea on Exertion , Wheezing, Snoring, Stridor, Pain on Inspiration, Chest Congestion, Excessive Mucous Production, Change in Mucous Color, Pain with Coughing, Other - Gastrointestinal Gastrointestinal: As Per HPI - Genitourinary Genitourinary: As Per HPI - Reproductive: Female Reproductive:Female: absent: As Per HPI, Amenorrhea, Amenorrhea/ Control, Currently Menstual, Cycle <21 Days, Cycle >35 Days, Cycle Variable, Menses 1-7 Days, Menses >/= 8 Days, Menses Variable, Cycle > 4 Weeks Between, No Menses for 6 Months, Heavy Menses, Light Menses, Normal Menses, Spotting Between Cycles , S/P Hysterectomy, Menopausal, Post Menopausal, Premenarche, Abnormal Vaginal Bleeding, Dysmenorrhea, Dyspareunia, Genital Lesions, Genital Pruritis, Pelvic Pain, Prolapse Symptoms, Sexual Dysfunction, Vaginal Discharge, Vaginal Dryness , Vaginal Odor, Vaginal Pruritis, Other - Menstruation Menstruation: absent: As Per HPI, Amenorrhea, Amenorrhea/ Control, Currently Menstual, Cycle <21 Days, Cycle >35 Days, Cycle Variable, Menses 1-7 Days, Menses >/= 8 Days, Menses Variable, Cycle > 4 Weeks Between, No Menses for 6 Months, Heavy Menses, Light Menses, Normal Menses, Spotting Between Cycles , S/P Hysterectomy, Menopausal, Post Menopausal, Premenarche, Abnormal Vaginal Bleeding, Dysmenorrhea, Other - Musculoskeletal Musculoskeletal: absent: As Per HPI, Abnormal Gait, Arthralgias, Atrophy, Back Pain, Deformity, Joint Swelling, Limited Range of Motion, Loss of Height, Muscle Cramps, Muscle Weakness, Myalgias, Neck Pain, Numbness, Radiating Pain into Limb, Stiffness, Tingling, Other - Integumentary Integumentary: absent: As Per HPI, Acne, Alopecia, Bleeding Lesions, Change in Hair, Change in Nails, Change in Pigmentation, Changing Lesions, Dry Skin, Erythema, Furuncle, Hirsutism, Lesions, New Lesions, Non-Healing Lesions, Photosensitivity, Pruritus, Rash, Skin Pain, Skin Ulcer, Sores, Striae, Swelling , Unusual Bruising, Wounds, Jaundice, Other - Neurological Neurological: absent: As Per HPI, Abnormal Gait, Abnormal Hearing, Abnormal Movements, Abnormal Speech, Behavioral Changes, Burning Sensations, Confusion, Convulsions, Disequilibrium, Dizziness, Numbness, Focal Weakness, Frequent Falls , Headaches, Lack of Coordination, Loss of Vision, Memory Loss, Paresthesias, Radicular Pain, Restless Legs, Sensory Deficit, Syncope, Tingling, Tremor, Vertigo, Weakness, Other Visual Disturbances, Other - Psychiatric Psychiatric: absent: As Per HPI, Abnormal Sleep Pattern, Anhedonia, Anxiety, Auditory Hallucinations, Behavioral Changes, Change in Appetite, Change in Libido, Confusion, Depression, Difficulty Concentrating, Hallucinations, Homicidal Ideation, Hopelessness, Irritability, Memory Loss, Mood Swings, Panic Attacks, Paranoia, Suicidal Ideation, Visual Hallucinations, Tactile Hallucinations, Other - Endocrine Endocrine: absent: As Per HPI, Change in Body Appearance, Change in Libido, Cold Intolorance, Deepening of Voice, Excessive Sweating, Fatigue, Flushing, Heat Intolorance, Increase in Ring/Shoe/Hat Size, Palpitations, Polydipsia, Polyphagia, Polyuria, Other - Hematologic/Lymphatic Hematologic: absent: As Per HPI, Easy Bleeding, Easy Bruising, Lymphadenopathy, Other Past Patient History - Past Medical History & Family History Past Medical History?: Yes - Past Social History Smoking Status: Never Smoked - CARDIAC Hx Hypercholesterolemia: Yes - PULMONARY Hx Respiratory Disorders: No - NEUROLOGICAL Hx Neurological Disorder: No - HEENT Hx HEENT Problems: No - RENAL Hx Chronic Kidney Disease: No - ENDOCRINE/METABOLIC Hx Endocrine Disorders: Yes Hx Diabetes Mellitus Type 2: Yes - HEMATOLOGICAL/ONCOLOGICAL Hx Blood Disorders: No - INTEGUMENTARY Hx Dermatological Problems: No - MUSCULOSKELETAL/RHEUMATOLOGICAL Hx Falls: No Hx Osteoporosis: Yes - GASTROINTESTINAL Hx Gastritis: Yes - GENITOURINARY/GYNECOLOGICAL Hx Genitourinary Disorders: No - PSYCHIATRIC Hx Depression: Yes Hx Substance Use: No - SURGICAL HISTORY Hx Surgeries: Yes (HIATAL HERNIA SX) Hx Section: Yes - ANESTHESIA Hx Anesthesia: Yes Hx Anesthesia Reactions: No Hx Malignant Hyperthermia: No Meds Home Medications: Home Medication List Medication Instructions Recorded Confirmed Type DULoxetine [Cymbalta] 60 mg PO DAILY #30 ecc 01/01/18 Rx Metronidazole [Flagyl] 500 mg PO TID #15 tab 01/01/18 Rx cefTRIAXone [Rocephin] 2 gm IVPB DAILY #4 vial 01/01/18 Rx Allergies/Adverse Reactions: Allergies Allergy/AdvReac Type Severity Reaction Status Date / Time Penicillins Allergy RASH Verified 12/03/17 23:03 - Medications Medications: Current Medications Alprazolam (Xanax) 1 mg PO Q8 PRN PRN Reason: Anxiety Medroxyprogesterone Acetate (Provera) 10 mg PO DAILY [facility] Last Admin: 12/26/17 10:21 Dose: 10 mg Metformin HCl (Glucophage) 500 mg PO BID [facility] Last Admin: 12/26/17 10:21 Dose: 500 mg Morphine Sulfate (Morphine) 4 mg IVP Q6 PRN PRN Reason: Pain, severe (8-10) Last Admin: 12/26/17 10:28 Dose: 4 mg Pantoprazole Sodium (Protonix Inj) 40 mg IVP DAILY [facility] Last Admin: 12/26/17 11:25 Dose: 40 mg Physical Exam - Constitutional Appears: Non-toxic, Chronically Ill - Head Exam Head Exam: NORMOCEPHALIC - Eye Exam Eye Exam: PERRL. absent: Scleral icterus - ENT Exam ENT Exam: Mucous Membranes Dry, Normal External Ear Exam - Neck Exam Neck exam: Negative for: Lymphadenopathy - Respiratory Exam Respiratory Exam: Decreased Breath Sounds, Rhonchi - Cardiovascular Exam Cardiovascular Exam: REGULAR RHYTHM, +S1, +S2 - GI/Abdominal Exam GI & Abdominal Exam: Diminished Bowel Sounds, Guarding, Tenderness - Rectal Exam Rectal Exam: Deferred - Exam Exam: NORMAL INSPECTION - Extremities Exam Extremities exam: Negative for: pedal edema - Back Exam Back exam: absent: CVA tenderness (L), CVA tenderness (R) - Neurological Exam Neurological exam: Alert, CN II-XII Intact, Oriented x3, Reflexes Normal - Psychiatric Exam Psychiatric exam: Depressed - Skin Skin Exam: Dry, Intact Results - Vital Signs Recent Vital Signs: Last Vital Signs Temp 98.3 F 12/26/17 09:00 Pulse 63 12/26/17 09:00 Resp 20 12/26/17 09:00 BP 108/68 12/26/17 09:00 Pulse Ox 97 12/26/17 09:00 - Labs Result Diagrams: 01/01/18 12:19 01/01/18 12:19 Labs: Laboratory Results - last 24 hr 12/25/17 12/25/17 12/25/17 20:49 20:49 20:49 WBC 9.2 RBC 3.85 Hgb 10.2 L Hct 30.7 L MCV 79.7 L MCH 26.5 L MCHC 33.3 RDW 16.1 H Plt Count 332 MPV 8.3 Neut % (Auto) 65.8 Lymph % (Auto) 24.6 [place] % (Auto) 8.0 Eos % (Auto) 0.6 Baso % (Auto) 1.0 Neut # (Auto) 6.0 Lymph # (Auto) 2.3 [place] # (Auto) 0.7 Eos # (Auto) 0.1 Baso # (Auto) 0.1 PT 11.2 INR 1.0 APTT 25.8 Sodium 140 Potassium 3.9 Chloride 103 Carbon Dioxide 27 Anion Gap 14 BUN 19 H Creatinine 0.8 Est GFR ( Amer) > 60 Est GFR (Non-Af Amer) > 60 POC Glucose (mg/dL) Random Glucose 102 Calcium 9.7 Total Bilirubin 0.4 AST 29 ALT 36 Alkaline Phosphatase 113 Total Protein 7.1 Albumin 3.8 Globulin 3.3 Albumin/Globulin Ratio 1.1 Lipase 171 12/26/17 12/26/17 06:46 11:35 WBC RBC Hgb Hct MCV MCH MCHC RDW Plt Count MPV Neut % (Auto) Lymph % (Auto) [place] % (Auto) Eos % (Auto) Baso % (Auto) Neut # (Auto) Lymph # (Auto) [place] # (Auto) Eos # (Auto) Baso # (Auto) PT INR APTT Sodium Potassium Chloride Carbon Dioxide Anion Gap BUN Creatinine Est GFR ( Amer) Est GFR (Non-Af Amer) POC Glucose (mg/dL) 100 92 Random Glucose Calcium Total Bilirubin AST ALT Alkaline Phosphatase Total Protein Albumin Globulin Albumin/Globulin Ratio Lipase Assessment & Plan (1) Adnexal mass Status: Acute (2) Pelvic pain Status: Acute - Assessment and Plan (Free Text) Assessment: s/p tubo-ovarian abscess drainage recurrent abd pain and tenderness failed out pt antibiotics
--- NOTE | 2017-12-26 14:00 | CP.PCM.HP ---
History of Present Illness - History of Present Illness History of Present Illness: 62 YO F was admitted for abdominal pain. She was recently hospitalized here for a Tubo ovarian abscess, and had a exploratory laprotomy and resection of her ovary. Patient states that after she was discharged from ER here she went to [facility] [place] because she started having severe pain, she was worked up and had a NG tube placed there and was hospitalized for a week. After discharge from [facility] [place] patient states she was doing well for a week but then started having pain again and felt her abdomen was distended and came into out ER. Denies nausea, vomiting , diarrhea, fever ,chills. PMD: Dr. Young Present on Admission - Present on Admission Any Indicators Present on Admission: No Past Patient History - Past Medical History & Family History Past Medical History?: Yes - Past Social History Smoking Status: Never Smoked - CARDIAC Hx Hypercholesterolemia: Yes - PULMONARY Hx Respiratory Disorders: No - NEUROLOGICAL Hx Neurological Disorder: No - HEENT Hx HEENT Problems: No - RENAL Hx Chronic Kidney Disease: No - ENDOCRINE/METABOLIC Hx Endocrine Disorders: Yes Hx Diabetes Mellitus Type 2: Yes - HEMATOLOGICAL/ONCOLOGICAL Hx Blood Disorders: No - INTEGUMENTARY Hx Dermatological Problems: No - MUSCULOSKELETAL/RHEUMATOLOGICAL Hx Falls: No Hx Osteoporosis: Yes - GASTROINTESTINAL Hx Gastritis: Yes - GENITOURINARY/GYNECOLOGICAL Hx Genitourinary Disorders: No - PSYCHIATRIC Hx Depression: Yes Hx Substance Use: No - SURGICAL HISTORY Hx Surgeries: Yes (HIATAL HERNIA SX) Hx Section: Yes - ANESTHESIA Hx Anesthesia: Yes Hx Anesthesia Reactions: No Hx Malignant Hyperthermia: No Meds Allergies/Adverse Reactions: Allergies Allergy/AdvReac Type Severity Reaction Status Date / Time Penicillins Allergy RASH Verified 12/03/17 23:03 Physical Exam - Constitutional Appears: No Acute Distress - Head Exam Head Exam: NORMAL INSPECTION - ENT Exam ENT Exam: Mucous Membranes Moist - Respiratory Exam Respiratory Exam: Clear to Auscultation Bilateral. absent: Rhonchi, Wheezes - Cardiovascular Exam Cardiovascular Exam: REGULAR RHYTHM, +S1, +S2 - GI/Abdominal Exam GI & Abdominal Exam: Tenderness Additional comments: slight left lower quadrant tenderness. - Extremities Exam Extremities exam: Positive for: normal inspection. Negative for: calf tenderness - Neurological Exam Neurological exam: Alert, CN II-XII Intact, Oriented x3 - Skin Skin Exam: Normal Color, Warm Additional comments: Surgical incision site healing well on lower abdomen. No redness or erythema. Results - Vital Signs Recent Vital Signs: Last Vital Signs Temp 98.3 F 12/26/17 09:00 Pulse 63 12/26/17 09:00 Resp 20 12/26/17 09:00 BP 108/68 12/26/17 09:00 Pulse Ox 97 12/26/17 09:00 - Labs Result Diagrams: 12/25/17 20:49 12/25/17 20:49 Labs: Laboratory Results - last 24 hr 12/25/17 12/25/17 12/25/17 20:49 20:49 20:49 WBC 9.2 RBC 3.85 Hgb 10.2 L Hct 30.7 L MCV 79.7 L MCH 26.5 L MCHC 33.3 RDW 16.1 H Plt Count 332 MPV 8.3 Neut % (Auto) 65.8 Lymph % (Auto) 24.6 Haskell % (Auto) 8.0 Eos % (Auto) 0.6 Baso % (Auto) 1.0 Neut # (Auto) 6.0 Lymph # (Auto) 2.3 Haskell # (Auto) 0.7 Eos # (Auto) 0.1 Baso # (Auto) 0.1 PT 11.2 INR 1.0 APTT 25.8 Sodium 140 Potassium 3.9 Chloride 103 Carbon Dioxide 27 Anion Gap 14 BUN 19 H Creatinine 0.8 Est GFR ( Amer) > 60 Est GFR (Non-Af Amer) > 60 POC Glucose (mg/dL) Random Glucose 102 Calcium 9.7 Total Bilirubin 0.4 AST 29 ALT 36 Alkaline Phosphatase 113 Total Protein 7.1 Albumin 3.8 Globulin 3.3 Albumin/Globulin Ratio 1.1 Lipase 171 12/26/17 12/26/17 06:46 11:35 WBC RBC Hgb Hct MCV MCH MCHC RDW Plt Count MPV Neut % (Auto) Lymph % (Auto) Haskell % (Auto) Eos % (Auto) Baso % (Auto) Neut # (Auto) Lymph # (Auto) Haskell # (Auto) Eos # (Auto) Baso # (Auto) PT INR APTT Sodium Potassium Chloride Carbon Dioxide Anion Gap BUN Creatinine Est GFR ( Amer) Est GFR (Non-Af Amer) POC Glucose (mg/dL) 100 92 Random Glucose Calcium Total Bilirubin AST ALT Alkaline Phosphatase Total Protein Albumin Globulin Albumin/Globulin Ratio Lipase Assessment & Plan - Assessment and Plan (Free Text) Assessment: 1) Abdominal pain - Uncertain etiology. No leucocytosis. Afebrile - CT scan in abdomen read as LLQ abscess. D/W Dr Corrigan, there is no abscess present. There is some fluid in the pelvis but not something that needs to be/ cant be drained. Pt does appear constipated, especially ascending colon. 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 Will restart Cipro flagly. - F/U with labs: procalcitonin, Urine GC, RPR , HIV - pain controll 2) DVT propphylaxis Lovenox
[2017-12-26] MEDS: metroNIDAZOLE 500mg/100ml NS 100 ML IVPB SCH ×2 (14:39→19:31)
[2017-12-26] MEDS: cefTRIAXone 2 GM in Sodium Chloride 0.9% 100 ML IVPB SCH (16:01)
[2017-12-26] MEDS ORDERED: Influenza Vaccine 18yr & older 0.5 ML/45 MCG SYR IM ONE (19:24)
[2017-12-26 21:23] LABS: RAPID PLASMA REAGIN NONREACTIVE (NONREACTIVE)
[2017-12-27] MEDS: metroNIDAZOLE 500mg/100ml NS 100 ML IVPB SCH ×3 (01:15→17:03)
[2017-12-27] MEDS: Morphine 4 MG/ML VIAL IVP PRN (09:25)
[2017-12-27] MEDS: Enoxaparin 40 mg Syringe SC SCH (09:26)
[2017-12-27] MEDS: cefTRIAXone 2 GM in Sodium Chloride 0.9% 100 ML IVPB SCH (09:26)
--- NOTE | 2017-12-27 11:25 | CP.PCM.PN ---
Subjective - Date & Time of Evaluation Date of Evaluation: 12/27/17 Time of Evaluation: 10:00 - Subjective Subjective: General Surgery Dr. Romeo Pt S&E @bedside. NAEO. pt c/o depression and continued abd pain. Pain improved. Pt was offered psych consult but refused. Pt tolerating diet. (+)BM. denies F/C , N/V, D/C. Objective - Vital Signs/Intake and Output Vital Signs (last 24 hours): Temp Pulse Resp BP Pulse Ox 98.4 F 75 18 107/71 100 12/27/17 08:31 12/27/17 08:31 12/27/17 08:31 12/27/17 08:31 12/27/17 08:31 - Medications Medications: Current Medications Alprazolam (Xanax) 1 mg PO Q8 PRN PRN Reason: Anxiety Last Admin: 12/27/17 10:29 Dose: 1 mg Dicyclomine HCl (Bentyl) 10 mg PO QID [facility] Duloxetine HCl (Cymbalta) 60 mg PO DAILY [facility] Enoxaparin Sodium (Lovenox) 40 mg SC DAILY [facility] PRN Reason: Protocol Last Admin: 12/27/17 09:26 Dose: 40 mg Metronidazole (Flagyl 500mg/100ml Ns) 100 mls @ 100 mls/hr IVPB Q8 [facility] PRN Reason: Protocol Last Admin: 12/27/17 09:27 Dose: 100 mls/hr Ceftriaxone Sodium 2 gm/ (Sodium Chloride) 100 mls @ 100 mls/hr IVPB DAILY [facility] PRN Reason: Protocol Last Admin: 12/27/17 09:26 Dose: 100 mls/hr Ibuprofen (Motrin Tab) 600 mg PO Q8 [facility] Medroxyprogesterone Acetate (Provera) 10 mg PO DAILY [facility] Last Admin: 12/27/17 09:26 Dose: 10 mg Metformin HCl (Glucophage) 500 mg PO BID [facility] Last Admin: 12/27/17 09:26 Dose: 500 mg Morphine Sulfate (Morphine) 4 mg IVP Q6 PRN PRN Reason: Pain, severe (8-10) Last Admin: 12/27/17 09:25 Dose: 4 mg Pantoprazole Sodium (Protonix Inj) 40 mg IVP DAILY [facility] Last Admin: 12/27/17 09:26 Dose: 40 mg - Labs Labs: 12/25/17 20:49 12/25/17 20:49 PT 11.2 Seconds (9.8-13.1) 12/25/17 20:49 INR 1.0 (0.9-1.2) 12/25/17 20:49 APTT 25.8 Seconds (25.6-37.1) 12/25/17 20:49 - Constitutional Appears: Non-toxic, No Acute Distress - Head Exam Head Exam: NORMAL INSPECTION - Eye Exam Eye Exam: Normal appearance - ENT Exam ENT Exam: Mucous Membranes Moist - Respiratory Exam Respiratory Exam: NORMAL BREATHING PATTERN. absent: Accessory Muscle Use, Respiratory Distress - GI/Abdominal Exam GI & Abdominal Exam: Soft, Tenderness (minimal TTP ). absent: Distended, Guarding, Rebound - Extremities Exam Extremities Exam: Normal Inspection - Neurological Exam Neurological Exam: Alert, Awake, Oriented x3 - Psychiatric Exam Psychiatric exam: Normal Affect, Normal Mood - Skin Skin Exam: Dry, Intact, Normal Color, Warm Assessment and Plan - Assessment and Plan (Free Text) Assessment: 62 y/o F w/ improved abd pain - cont pain management - consider Tx for depression - cont medical management - no surgical intervention at this time - pt cleared for discharge from surgical standpoint Pt discussed w/ Dr. Ousmane Govea DO PGY2
--- NOTE | 2017-12-27 13:01 | CP.PCM.PN ---
Subjective - Date & Time of Evaluation Date of Evaluation: 12/27/17 Time of Evaluation: 09:00 - Subjective Subjective: C/O PAIN NO FEVER Objective - Vital Signs/Intake and Output Vital Signs (last 24 hours): Temp Pulse Resp BP Pulse Ox 98.4 F 75 18 107/71 100 12/27/17 08:31 12/27/17 08:31 12/27/17 08:31 12/27/17 08:31 12/27/17 08:31 - Medications Medications: Current Medications Alprazolam (Xanax) 1 mg PO Q8 PRN PRN Reason: Anxiety Last Admin: 12/27/17 10:29 Dose: 1 mg Dicyclomine HCl (Bentyl) 10 mg PO QID [facility] Last Admin: 12/27/17 12:00 Dose: 10 mg Duloxetine HCl (Cymbalta) 60 mg PO DAILY [facility] Last Admin: 12/27/17 11:58 Dose: 60 mg Enoxaparin Sodium (Lovenox) 40 mg SC DAILY [facility] PRN Reason: Protocol Last Admin: 12/27/17 09:26 Dose: 40 mg Metronidazole (Flagyl 500mg/100ml Ns) 100 mls @ 100 mls/hr IVPB Q8 [facility] PRN Reason: Protocol Last Admin: 12/27/17 09:27 Dose: 100 mls/hr Ceftriaxone Sodium 2 gm/ (Sodium Chloride) 100 mls @ 100 mls/hr IVPB DAILY [facility] PRN Reason: Protocol Last Admin: 12/27/17 09:26 Dose: 100 mls/hr Ibuprofen (Motrin Tab) 600 mg PO Q8 [facility] Last Admin: 12/27/17 11:57 Dose: 600 mg Medroxyprogesterone Acetate (Provera) 10 mg PO DAILY [facility] Last Admin: 12/27/17 09:26 Dose: 10 mg Metformin HCl (Glucophage) 500 mg PO BID [facility] Last Admin: 12/27/17 09:26 Dose: 500 mg Morphine Sulfate (Morphine) 4 mg IVP Q6 PRN PRN Reason: Pain, severe (8-10) Last Admin: 12/27/17 09:25 Dose: 4 mg Pantoprazole Sodium (Protonix Inj) 40 mg IVP DAILY [facility] Last Admin: 12/27/17 09:26 Dose: 40 mg - Labs Labs: 12/25/17 20:49 12/25/17 20:49 PT 11.2 Seconds (9.8-13.1) 12/25/17 20:49 INR 1.0 (0.9-1.2) 12/25/17 20:49 APTT 25.8 Seconds (25.6-37.1) 12/25/17 20:49 - Constitutional Appears: Well - Head Exam Head Exam: ATRAUMATIC, NORMAL INSPECTION, NORMOCEPHALIC - Eye Exam Eye Exam: EOMI, Normal appearance, PERRL Pupil Exam: NORMAL ACCOMODATION, PERRL - ENT Exam ENT Exam: Mucous Membranes Moist, Normal Exam - Neck Exam Neck Exam: Full ROM, Normal Inspection. absent: Lymphadenopathy - Respiratory Exam Respiratory Exam: Clear to Ausculation Bilateral, NORMAL BREATHING PATTERN - Cardiovascular Exam Cardiovascular Exam: REGULAR RHYTHM, +S1, +S2. absent: Murmur - GI/Abdominal Exam GI & Abdominal Exam: Distended, Soft, Tenderness - Extremities Exam Extremities Exam: Full ROM, Normal Capillary Refill, Normal Inspection. absent : Joint Swelling, Pedal Edema - Back Exam Back Exam: NORMAL INSPECTION - Neurological Exam Neurological Exam: Alert, Awake, CN II-XII Intact, Normal Gait, Oriented x3 - Psychiatric Exam Psychiatric exam: Normal Affect, Normal Mood - Skin Skin Exam: Dry, Intact, Normal Color, Warm Assessment and Plan - Assessment and Plan (Free Text) Plan: CONT IV RX AWAIT CULTURES
[2017-12-27 13:38] LABS: SQUAMOUS EPITHIAL 6 /hpf (0-5); URINE BILIRUBIN NEGATIVE (NEGATIVE); URINE BLOOD SMALL (NEGATIVE); URINE CLARITY SLIGHTY-CLOUDY (Clear); URINE COLOR YELLOW (YELLOW); URINE GLUCOSE (UA) NEG (Normal); URINE LEUKOCYTE ESTERASE TRACE Leu/uL (Negative); URINE NITRATE NEGATIVE (NEGATIVE); URINE PROTEIN NEGATIVE (NEGATIVE); URINE UROBILINOGEN 0.2-1.0 mg/dL (0.2-1.0)
--- NOTE | 2017-12-27 15:40 | CP.PCM.PN ---
Subjective - Date & Time of Evaluation Date of Evaluation: 12/27/17 Time of Evaluation: 15:38 - Subjective Subjective: Patient seen and examined at bedside. Has remained afebrile overnight, however continues to complain of abdominal pain. Denies nausea, vomiting. Objective - Vital Signs/Intake and Output Vital Signs (last 24 hours): Temp Pulse Resp BP Pulse Ox 98.4 F 75 18 107/71 100 12/27/17 08:31 12/27/17 08:31 12/27/17 08:31 12/27/17 08:31 12/27/17 08:31 - Medications Medications: Current Medications Alprazolam (Xanax) 1 mg PO Q8 PRN PRN Reason: Anxiety Last Admin: 12/27/17 10:29 Dose: 1 mg Dicyclomine HCl (Bentyl) 10 mg PO QID [facility] Last Admin: 12/27/17 12:00 Dose: 10 mg Duloxetine HCl (Cymbalta) 60 mg PO DAILY [facility] Last Admin: 12/27/17 11:58 Dose: 60 mg Enoxaparin Sodium (Lovenox) 40 mg SC DAILY [facility] PRN Reason: Protocol Last Admin: 12/27/17 09:26 Dose: 40 mg Metronidazole (Flagyl 500mg/100ml Ns) 100 mls @ 100 mls/hr IVPB Q8 [facility] PRN Reason: Protocol Last Admin: 12/27/17 09:27 Dose: 100 mls/hr Ceftriaxone Sodium 2 gm/ (Sodium Chloride) 100 mls @ 100 mls/hr IVPB DAILY [facility] PRN Reason: Protocol Last Admin: 12/27/17 09:26 Dose: 100 mls/hr Ibuprofen (Motrin Tab) 600 mg PO Q8 [facility] Last Admin: 12/27/17 11:57 Dose: 600 mg Medroxyprogesterone Acetate (Provera) 10 mg PO DAILY [facility] Last Admin: 12/27/17 09:26 Dose: 10 mg Metformin HCl (Glucophage) 500 mg PO BID [facility] Last Admin: 12/27/17 09:26 Dose: 500 mg Morphine Sulfate (Morphine) 4 mg IVP Q6 PRN PRN Reason: Pain, severe (8-10) Last Admin: 12/27/17 09:25 Dose: 4 mg Pantoprazole Sodium (Protonix Inj) 40 mg IVP DAILY [facility] Last Admin: 12/27/17 09:26 Dose: 40 mg - Labs Labs: 12/25/17 20:49 12/25/17 20:49 PT 11.2 Seconds (9.8-13.1) 12/25/17 20:49 INR 1.0 (0.9-1.2) 12/25/17 20:49 APTT 25.8 Seconds (25.6-37.1) 12/25/17 20:49 - Constitutional Appears: No Acute Distress - Head Exam Head Exam: NORMAL INSPECTION - Eye Exam Eye Exam: Normal appearance - Respiratory Exam Respiratory Exam: Clear to Ausculation Bilateral, NORMAL BREATHING PATTERN. absent: Rhonchi, Wheezes - Cardiovascular Exam Cardiovascular Exam: REGULAR RHYTHM, +S1, +S2 - GI/Abdominal Exam GI & Abdominal Exam: Soft, Tenderness (slight generalized non specific tenderness), Normal Bowel Sounds - Extremities Exam Extremities Exam: Full ROM. absent: Calf Tenderness - Neurological Exam Neurological Exam: Alert, Awake, CN II-XII Intact, Oriented x3 Assessment and Plan - Assessment and Plan (Free Text) Assessment: 1) Abdominal pain - Uncertain etiology. No leucocytosis. Afebrile - CT scan in abdomen read as LLQ abscess. D/W Dr Corrigan, there is no abscess present. There is some fluid in the pelvis but not something that needs to be/ cant be drained. Pt does appear constipated, especially ascending colon. 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
[2017-12-28] MEDS: metroNIDAZOLE 500mg/100ml NS 100 ML IVPB SCH ×3 (00:26→16:00)
[2017-12-28 06:36] LABS: HEMOGLOBIN 9.3 g/dL (12.0-16.0); MEAN CELL VOLUME 79.9 fl (81.0-99.0); MEAN CORPUSCULAR HEMOGLOBIN 26.4 pg (27.0-31.0); RBC 3.52 Mil/uL (3.80-5.20); RED CELL DISTRIBUTION WIDTH 16.1 % (11.5-14.5); WHITE BLOOD COUNT 7.4 K/uL (4.8-10.8)
[2017-12-28 06:48] LABS: BLOOD UREA NITROGEN 12 mg/dl (7-17); CALCIUM 9.3 mg/dL (8.4-10.2); GFR AFRICAN-AMERICAN > 60; GFR NON-AFRICAN AMERICAN > 60
[2017-12-28] MEDS: Enoxaparin 40 mg Syringe SC SCH (09:04)
[2017-12-28] MEDS: cefTRIAXone 2 GM in Sodium Chloride 0.9% 100 ML IVPB SCH (09:05)
--- NOTE | 2017-12-28 15:31 | CP.PCM.PN ---
Subjective - Date & Time of Evaluation Date of Evaluation: 12/28/17 Time of Evaluation: 08:30 - Subjective Subjective: Patient seen at bedside doing well. Patient tolerated Cymbalta well. Patient states her mood is better and her pain is better controlled. No fevers or overnight events noted. Objective - Vital Signs/Intake and Output Vital Signs (last 24 hours): Temp Pulse Resp BP Pulse Ox 98.9 F 68 20 108/64 98 12/28/17 08:16 12/28/17 08:16 12/28/17 08:16 12/28/17 08:16 12/28/17 08:16 - Medications Medications: Current Medications Alprazolam (Xanax) 1 mg PO Q8 PRN PRN Reason: Anxiety Last Admin: 12/27/17 10:29 Dose: 1 mg Dicyclomine HCl (Bentyl) 10 mg PO QID [facility] Last Admin: 12/28/17 12:06 Dose: 10 mg Duloxetine HCl (Cymbalta) 60 mg PO DAILY [facility] Last Admin: 12/28/17 09:03 Dose: 60 mg Enoxaparin Sodium (Lovenox) 40 mg SC DAILY [facility] PRN Reason: Protocol Last Admin: 12/28/17 09:04 Dose: 40 mg Metronidazole (Flagyl 500mg/100ml Ns) 100 mls @ 100 mls/hr IVPB Q8 [facility] PRN Reason: Protocol Last Admin: 12/28/17 09:03 Dose: 100 mls/hr Ceftriaxone Sodium 2 gm/ (Sodium Chloride) 100 mls @ 100 mls/hr IVPB DAILY [facility] PRN Reason: Protocol Last Admin: 12/28/17 09:05 Dose: 100 mls/hr Ibuprofen (Motrin Tab) 600 mg PO Q8 [facility] Last Admin: 12/28/17 09:04 Dose: 600 mg Medroxyprogesterone Acetate (Provera) 10 mg PO DAILY [facility] Last Admin: 12/28/17 09:05 Dose: 10 mg Metformin HCl (Glucophage) 500 mg PO BID [facility] Last Admin: 12/28/17 09:04 Dose: 500 mg Morphine Sulfate (Morphine) 4 mg IVP Q6 PRN PRN Reason: Pain, severe (8-10) Last Admin: 12/27/17 09:25 Dose: 4 mg Pantoprazole Sodium (Protonix Inj) 40 mg IVP DAILY [facility] Last Admin: 12/28/17 09:05 Dose: 40 mg - Labs Labs: 12/28/17 06:05 12/28/17 06:05 PT 11.2 Seconds (9.8-13.1) 12/25/17 20:49 INR 1.0 (0.9-1.2) 12/25/17 20:49 APTT 25.8 Seconds (25.6-37.1) 12/25/17 20:49 - Constitutional Appears: No Acute Distress - Head Exam Head Exam: NORMAL INSPECTION - Respiratory Exam Respiratory Exam: Clear to Ausculation Bilateral. absent: Rhonchi, Wheezes - Cardiovascular Exam Cardiovascular Exam: REGULAR RHYTHM, +S1, +S2 - GI/Abdominal Exam GI & Abdominal Exam: Soft, Normal Bowel Sounds. absent: Tenderness - Extremities Exam Extremities Exam: Normal Inspection. absent: Calf Tenderness - Neurological Exam Neurological Exam: Alert, Awake, Oriented x3 - Skin Skin Exam: Normal Color, Warm Assessment and Plan - Assessment and Plan (Free Text) Assessment: 1) Abdominal pain ( improved) - Uncertain etiology. No leucocytosis. Afebrile - CT scan in abdomen read as LLQ abscess. D/W Dr Corrigan, there is no abscess present. There is some fluid in the pelvis but not something that needs to be/ cant be drained. Pt does appear constipated, especially ascending colon. 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
[2017-12-28] MEDS: Morphine 4 MG/ML VIAL IVP PRN (23:26)
[2017-12-29] MEDS: metroNIDAZOLE 500mg/100ml NS 100 ML IVPB SCH ×3 (00:12→16:47)
[2017-12-29] MEDS ORDERED: Simethicone 80 mg Chewtab PO ONE ×2 (00:44→12:25)
[2017-12-29] MEDS: Enoxaparin 40 mg Syringe SC SCH (08:53)
[2017-12-29] MEDS: cefTRIAXone 2 GM in Sodium Chloride 0.9% 100 ML IVPB SCH (08:57)
[2017-12-29] MEDS: Morphine 4 MG/ML VIAL IVP PRN (11:09)
--- NOTE | 2017-12-29 11:49 | CP.PCM.PN ---
Subjective - Date & Time of Evaluation Date of Evaluation: 12/29/17 Time of Evaluation: 10:20 - Subjective Subjective: Patient seen at bedside with Dr Young, doing well. Patient states her pain is better controlled. No fevers. Nurses unable to get peripheral IV access today Objective - Vital Signs/Intake and Output Vital Signs (last 24 hours): Temp Pulse Resp BP Pulse Ox 98.3 F 79 18 134/78 96 12/29/17 08:31 12/29/17 08:31 12/29/17 08:31 12/29/17 08:31 12/29/17 08:31 - Medications Medications: Current Medications Alprazolam (Xanax) 1 mg PO Q8 PRN PRN Reason: Anxiety Last Admin: 12/29/17 08:56 Dose: 1 mg Dicyclomine HCl (Bentyl) 10 mg PO QID [facility] Last Admin: 12/29/17 08:53 Dose: 10 mg Duloxetine HCl (Cymbalta) 60 mg PO DAILY [facility] Last Admin: 12/29/17 08:53 Dose: 60 mg Enoxaparin Sodium (Lovenox) 40 mg SC DAILY [facility] PRN Reason: Protocol Last Admin: 12/29/17 08:53 Dose: 40 mg Metronidazole (Flagyl 500mg/100ml Ns) 100 mls @ 100 mls/hr IVPB Q8 [facility] PRN Reason: Protocol Last Admin: 12/29/17 08:57 Dose: 100 mls/hr Ceftriaxone Sodium 2 gm/ (Sodium Chloride) 100 mls @ 100 mls/hr IVPB DAILY [facility] PRN Reason: Protocol Last Admin: 12/29/17 08:57 Dose: 100 mls/hr Ibuprofen (Motrin Tab) 600 mg PO Q8 [facility] Last Admin: 12/29/17 08:54 Dose: 600 mg Medroxyprogesterone Acetate (Provera) 10 mg PO DAILY [facility] Last Admin: 12/29/17 08:55 Dose: 10 mg Metformin HCl (Glucophage) 500 mg PO BID [facility] Last Admin: 12/29/17 08:53 Dose: 500 mg Morphine Sulfate (Morphine) 4 mg IVP Q6 PRN PRN Reason: Pain, severe (8-10) Last Admin: 12/29/17 11:09 Dose: 4 mg Pantoprazole Sodium (Protonix Inj) 40 mg IVP DAILY [facility] Last Admin: 12/29/17 08:55 Dose: 40 mg - Labs Labs: 12/28/17 06:05 12/28/17 06:05 PT 11.2 Seconds (9.8-13.1) 12/25/17 20:49 INR 1.0 (0.9-1.2) 12/25/17 20:49 APTT 25.8 Seconds (25.6-37.1) 12/25/17 20:49 - Constitutional Appears: Non-toxic, No Acute Distress - Eye Exam Eye Exam: EOMI, PERRL - ENT Exam ENT Exam: Mucous Membranes Moist - Respiratory Exam Respiratory Exam: Clear to Ausculation Bilateral, NORMAL BREATHING PATTERN. absent: Rales, Wheezes - Cardiovascular Exam Cardiovascular Exam: REGULAR RHYTHM, +S1, +S2. absent: Murmur - GI/Abdominal Exam GI & Abdominal Exam: Soft, Tenderness (Mild). absent: Distended, Guarding, Rigid, Rebound - Extremities Exam Extremities Exam: Normal Capillary Refill - Neurological Exam Neurological Exam: Alert, Awake, Oriented x3 - Psychiatric Exam Psychiatric exam: Normal Affect, Normal Mood - Skin Skin Exam: Normal Color, Warm Assessment and Plan - Assessment and Plan (Free Text) Assessment: 1) Intraabdominal infection Improved, suspected - Uncertain etiology. No leucocytosis. Afebrile - CT scan in abdomen read as LLQ abscess. 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 Day 4. Patient failed PO trial (Spoke with dr Bagley today, at least 7 days of IV abx) -PICC line ordered -pain control 2) propphylaxis -Lovenox
--- NOTE | 2017-12-29 12:34 | CP.PCM.PN ---
Subjective - Date & Time of Evaluation Date of Evaluation: 12/29/17 Time of Evaluation: 09:00 - Subjective Subjective: less pain and tenderness no fever Objective - Vital Signs/Intake and Output Vital Signs (last 24 hours): Temp Pulse Resp BP Pulse Ox 98.3 F 79 18 134/78 96 12/29/17 08:31 12/29/17 08:31 12/29/17 08:31 12/29/17 08:31 12/29/17 08:31 - Medications Medications: Current Medications Alprazolam (Xanax) 1 mg PO Q8 PRN PRN Reason: Anxiety Last Admin: 12/29/17 08:56 Dose: 1 mg Dicyclomine HCl (Bentyl) 10 mg PO QID [facility] Last Admin: 12/29/17 08:53 Dose: 10 mg Duloxetine HCl (Cymbalta) 60 mg PO DAILY [facility] Last Admin: 12/29/17 08:53 Dose: 60 mg Enoxaparin Sodium (Lovenox) 40 mg SC DAILY [facility] PRN Reason: Protocol Last Admin: 12/29/17 08:53 Dose: 40 mg Metronidazole (Flagyl 500mg/100ml Ns) 100 mls @ 100 mls/hr IVPB Q8 [facility] PRN Reason: Protocol Last Admin: 12/29/17 08:57 Dose: 100 mls/hr Ceftriaxone Sodium 2 gm/ (Sodium Chloride) 100 mls @ 100 mls/hr IVPB DAILY [facility] PRN Reason: Protocol Last Admin: 12/29/17 08:57 Dose: 100 mls/hr Ibuprofen (Motrin Tab) 600 mg PO Q8 [facility] Last Admin: 12/29/17 08:54 Dose: 600 mg Medroxyprogesterone Acetate (Provera) 10 mg PO DAILY [facility] Last Admin: 12/29/17 08:55 Dose: 10 mg Metformin HCl (Glucophage) 500 mg PO BID [facility] Last Admin: 12/29/17 08:53 Dose: 500 mg Morphine Sulfate (Morphine) 4 mg IVP Q6 PRN PRN Reason: Pain, severe (8-10) Last Admin: 12/29/17 11:09 Dose: 4 mg Pantoprazole Sodium (Protonix Inj) 40 mg IVP DAILY [facility] Last Admin: 12/29/17 08:55 Dose: 40 mg - Labs Labs: 12/28/17 06:05 12/28/17 06:05 PT 11.2 Seconds (9.8-13.1) 12/25/17 20:49 INR 1.0 (0.9-1.2) 12/25/17 20:49 APTT 25.8 Seconds (25.6-37.1) 12/25/17 20:49 - Constitutional Appears: Non-toxic, Chronically Ill - Head Exam Head Exam: NORMOCEPHALIC - Eye Exam Eye Exam: PERRL - ENT Exam ENT Exam: Mucous Membranes Dry - Neck Exam Neck Exam: absent: Lymphadenopathy - Respiratory Exam Respiratory Exam: Decreased Breath Sounds - Cardiovascular Exam Cardiovascular Exam: REGULAR RHYTHM - GI/Abdominal Exam GI & Abdominal Exam: Distended - Rectal Exam Rectal Exam: Deferred - Extremities Exam Extremities Exam: absent: Pedal Edema - Back Exam Back Exam: absent: CVA tenderness (L), CVA tenderness (R) Assessment and Plan - Assessment and Plan (Free Text) Plan: s/p rx for Tuboovarian abscess and PID with recurrent abd pain- plan is to cont iv antibiotics for 7 more days and follow up CT scan
[2017-12-29] MEDS ORDERED: Lidocaine 1% Inj (20ml) ONE (12:54)
--- NOTE | 2017-12-29 13:26 | PCM.SURG1 ---
Surgeon's Initial Post Op Note - Surgeon's Notes Surgeon: Chauncey Daniel MD Pail Bailer: NONE Type of Anesthesia: Local Pre-Operative Diagnosis: Poor venous access Operative Findings: US showed a patent right basilic vein Post-Operative Diagnosis: Poor venous access Operation Performed: Single lumen picc placement right basilic vein, 37 cm. Tip is in the SVC. Specimen/Specimens Removed: none Estimated Blood Loss: EBL {In ML}: 2 Blood Products Given: N/A Drains Used: No Drains Post-Op Condition: Fair Date of Surgery/Procedure: 12/29/17 Time of Surgery/Procedure: 13:20
--- NOTE | 2017-12-29 14:03 | VASCULAR ---
PROCEDURE: Date of procedure: 12/29/2017 Procedure: 1. Placement of a right arm PICC with ultrasound and fluoroscopic guidance, CPT 47789 2. PICC tip confirmation with spot radiograph and is in the superior vena cava Medications: 1 percent lidocaine Total Fluoro time: 4.8 seconds Radiation: 0.56 MGy EBL: 2 cc HISTORY: Infection requiring long-term IV antibiotics TECHNIQUE: Following informed consent and procedure time-out, the patient was placed supine on the interventional table and the right arm prepped and draped in the usual sterile fashion. Ultrasound showed a patent and compressible right basilic vein. After the skin was anesthetized with lidocaine, the basilic vein was accessed with micro micropuncture technique using ultrasound guidance. A guidewire was then advanced under fluoroscopic guidance into the superior vena cava. An image documenting ultrasound guidance for vascular access was permanently saved. The length of the single-lumen 4 [place] PICC was trimmed to 37 centimeters and advanced through a peel-away sheath. The PICC was position with tip of PICC confirm a spot radiograph the superior vena cava. The PICC was secured to the patient's skin. The PICC was flushed. A biopatch and sterile dressing was applied. IMPRESSION: Placement of a single-lumen 4 [place] PICC trimmed to 37 centimeters via right basilic vein. The tip of the PICC is confirmed with spot radiograph and is in the superior vena cava.
[2017-12-30] MEDS: metroNIDAZOLE 500mg/100ml NS 100 ML IVPB SCH ×3 (00:07→17:10)
[2017-12-30] MEDS: Enoxaparin 40 mg Syringe SC SCH (10:00)
[2017-12-30] MEDS: cefTRIAXone 2 GM in Sodium Chloride 0.9% 100 ML IVPB SCH (10:11)
[2017-12-30] MEDS: Morphine 4 MG/ML VIAL IVP PRN (15:37)
[2017-12-31] MEDS: metroNIDAZOLE 500mg/100ml NS 100 ML IVPB SCH ×3 (00:19→16:02)
[2017-12-31] MEDS: cefTRIAXone 2 GM in Sodium Chloride 0.9% 100 ML IVPB SCH (08:53)
[2017-12-31] MEDS: Enoxaparin 40 mg Syringe SC SCH (08:55)
--- NOTE | 2017-12-31 10:13 | PN ---
DATE: 12/31/2017 SUBJECTIVE: The patient is seen and examined. Interim events noted. The patient is seen for Dr. Young while he is away. The patient has intraabdominal abscess. The patient feels better. Still has abdominal pain, but it is slowly improving. No chest pain. No shortness of breath. No side effects from medication. No sign of complication from . PHYSICAL EXAMINATION: GENERAL: The patient is in no acute distress. VITAL SIGNS: Stable. HEART: S1 and S2, normal and regular. LUNGS: Good bilateral air exchange. ABDOMEN: Soft and nontender. No sign of acute abdomen. No guarding. No rigidity. No rebound. Bowel sounds are present and normal. EXTREMITIES: No edema. No calf swelling. No tenderness. No acute ischemia. CENTRAL NERVOUS SYSTEM: Essentially unchanged. DIAGNOSTIC DATA: Available diagnostic data reviewed. PLAN: Overall, patient's general medical condition is slowly improving. Plan as ordered. Jonny Esquivel MD
--- NOTE | 2017-12-31 13:07 | CP.PCM.PN ---
Subjective - Date & Time of Evaluation Date of Evaluation: 12/31/17 Time of Evaluation: 07:00 - Subjective Subjective: less abd pain no fever no chills no abd pain Objective - Vital Signs/Intake and Output Vital Signs (last 24 hours): Temp Pulse Resp BP Pulse Ox 98.4 F 67 20 144/85 100 12/31/17 08:52 12/31/17 08:52 12/31/17 08:52 12/31/17 08:52 12/31/17 08:52 - Medications Medications: Current Medications Alprazolam (Xanax) 1 mg PO Q8 PRN PRN Reason: Anxiety Last Admin: 12/30/17 17:15 Dose: 1 mg Dicyclomine HCl (Bentyl) 10 mg PO QID [facility] Last Admin: 12/31/17 08:54 Dose: 10 mg Duloxetine HCl (Cymbalta) 60 mg PO DAILY [facility] Last Admin: 12/31/17 08:55 Dose: 60 mg Enoxaparin Sodium (Lovenox) 40 mg SC DAILY [facility] PRN Reason: Protocol Last Admin: 12/31/17 08:55 Dose: 40 mg Metronidazole (Flagyl 500mg/100ml Ns) 100 mls @ 100 mls/hr IVPB Q8 [facility] PRN Reason: Protocol Last Admin: 12/31/17 08:52 Dose: 100 mls/hr Ibuprofen (Motrin Tab) 600 mg PO Q8 [facility] Last Admin: 12/31/17 08:57 Dose: 600 mg Medroxyprogesterone Acetate (Provera) 10 mg PO DAILY [facility] Last Admin: 12/31/17 08:55 Dose: 10 mg Metformin HCl (Glucophage) 500 mg PO BID [facility] Last Admin: 12/31/17 08:54 Dose: 500 mg Morphine Sulfate (Morphine) 4 mg IVP Q6 PRN PRN Reason: Pain, severe (8-10) Last Admin: 12/30/17 15:37 Dose: 4 mg Pantoprazole Sodium (Protonix Inj) 40 mg IVP DAILY [facility] Last Admin: 12/31/17 08:54 Dose: 40 mg - Labs Labs: 12/28/17 06:05 12/28/17 06:05 PT 11.2 Seconds (9.8-13.1) 12/25/17 20:49 INR 1.0 (0.9-1.2) 12/25/17 20:49 APTT 25.8 Seconds (25.6-37.1) 12/25/17 20:49 - Constitutional Appears: Non-toxic, Chronically Ill - Head Exam Head Exam: NORMOCEPHALIC - Eye Exam Eye Exam: PERRL - ENT Exam ENT Exam: Mucous Membranes Dry - Neck Exam Neck Exam: absent: Lymphadenopathy - Respiratory Exam Respiratory Exam: Decreased Breath Sounds, Clear to Ausculation Bilateral - Cardiovascular Exam Cardiovascular Exam: REGULAR RHYTHM, +S1, +S2 - GI/Abdominal Exam GI & Abdominal Exam: Distended, Soft. absent: Tenderness - Rectal Exam Rectal Exam: Deferred - Exam Exam: NORMAL INSPECTION - Extremities Exam Extremities Exam: absent: Pedal Edema - Back Exam Back Exam: absent: CVA tenderness (L), CVA tenderness (R) - Neurological Exam Neurological Exam: Alert, Awake, Oriented x3 Neuro motor strength exam: Left Upper Extremity: 5, Right Upper Extremity: 5, Left Lower Extremity: 5, Right Lower Extremity: 5 - Psychiatric Exam Psychiatric exam: Normal Mood - Skin Skin Exam: Dry Assessment and Plan (1) Pelvic pain Status: Acute (2) Tubo-ovarian abscess Status: Acute - Assessment and Plan (Free Text) Assessment: resolving abd collection s/p TO Abscess / PID recc GI eval for colonoscopy as ot pt surgical follow up as out pt repeat CT as out pt \[facility] eval as out pt
[2018-01-01] MEDS: metroNIDAZOLE 500mg/100ml NS 100 ML IVPB SCH ×2 (00:15→08:55)
[2018-01-01 08:38] VITALS: BP 130/75; PULSE 72; RESP 20; TEMP 98.8
[2018-01-01] MEDS: Enoxaparin 40 mg Syringe SC SCH (08:51)
[2018-01-01] MEDS ORDERED: cefTRIAXone 2 GM in Sodium Chloride 0.9% 100 ML IVPB SCH (09:00)
[2018-01-01 12:50] LABS: HEMOGLOBIN 10.4 g/dL (12.0-16.0); MEAN CORPUSCULAR HEMOGLOBIN 26.4 pg (27.0-31.0); MEAN CORPUSCULAR HGB CONC 32.5 g/dL (33.0-37.0); RBC 3.93 Mil/uL (3.80-5.20); RED CELL DISTRIBUTION WIDTH 16.8 % (11.5-14.5); WHITE BLOOD COUNT 8.3 K/uL (4.8-10.8)
[2018-01-01 13:13] LABS: BLOOD UREA NITROGEN 10 mg/dl (7-17); GFR AFRICAN-AMERICAN > 60; GFR NON-AFRICAN AMERICAN > 60
--- NOTE | 2018-01-01 14:28 | CP.PCM.PCO ---
Assessment/Plan - Assessment/Plan Assessment (Free Text): Pt stable, tolerating abx. Per Dr. Bagley, pt to complete abx treatment on Monday01/05/17. Pt seen by Dr. Young and cleared for d/c home. Pt will be d/c' d home today after today's dose of abx. Home infusion to begin tomorrow, arrangements made by CM. All Rx given
--- NOTE | 2018-01-03 09:16 | PQF GENQUE ---
Hannah Baltazar pt was admitted with abdominal pain and constipation status post surgery. After study what is the principal diagnosis for this case? This form is a permanent part of the medical record Clarification of your documentation is requested to better reflect the severity of illness and intensity of treatment of your patient. Indicators present [] Specify: [] [] Specify: [] [] Specify: [] [] Specify: [] Location in the medical record that reflects the above clinical findings: [] Treatment Provided: [] PHYSICIAN'S RESPONSE Based on your medical judgment of the clinical indicators outlined above please clarify the following: [] Practitioner response [] If unable to determine, please check the box, sign and date. Present On Admission (POA) Indicator: [] Present at the time of admission [] Not present at the time of admission [] Clinically Undetermined In responding to this query, please exercise your independent professional judgment. The fact that a question is asked does not imply that any particular answer is desired or expected. Thank you for your clarification on this documentation. If you have any questions please call:[ ] * Thank you, [ ]Dorothea Toro jewel bearing polisher [place]
[2018-01-05 21:23] VITALS: O2SAT 98
== END 2018-01-01 15:50 | disposition home or self-care (01) | DRG 759 ==
LOC: H.ER 19:09 → H.ERHOLD 12-26 00:07 → H.MEDSURG1 12-26 02:48
PROVIDERS: ADMIT Family Medicine; ATTEND Family Medicine
PROC: 3E0234Z Introduction of Serum, Toxoid and Vaccine into Muscle, Percutaneous Approach (ICD-10-PCS; principal; 2017-12-26)
PROC: 02HV33Z Insertion of Infusion Device into Superior Vena Cava, Percutaneous Approach (ICD-10-PCS; 2017-12-29)
DX: N70.93 Salpingitis and oophoritis, unspecified (principal); E11.9 Type 2 diabetes mellitus without complications; E78.00 Pure hypercholesterolemia, unspecified; F32.9 Major depressive disorder, single episode, unspecified; K59.00 Constipation, unspecified; Z88.0 Allergy status to penicillin; Z23 Encounter for immunization; K29.70 Gastritis, unspecified, without bleeding; M81.0 Age-related osteoporosis without current pathological fracture; N73.9 Female pelvic inflammatory disease, unspecified